=== PATIENT | female | born 1955 | race Caucasian/White ===

== ENCOUNTER 2019-12-28 10:01 | Emergency (ER) | payer OTHER ==
[~2019-12-28] VITALS: Ht 147.3 cm; Wt 149.5 kg
[2019-12-28] MEDS ORDERED: LISI10TA4 PO (10:09)
[2019-12-28] MEDS ORDERED: PRAV10TA3 PO (10:09)
[2019-12-28] MEDS ORDERED: HYDR12.55 PO (10:09)
[2019-12-28] MEDS ORDERED: DILT1CAP5 PO (10:09)
[2019-12-28 11:19] LABS: BASO % 0.5 % (0.0-1.0); EOS # 0.1 10^3/uL (0.0-0.5); EOS % 1.2 % (0.0-3.0); HEMATOCRIT 46.5 % (36.0-47.0); HEMOGLOBIN 15.5 g/dl (12.0-15.5); LYMPH # 1.7 10^3/uL (1.5-5.0); LYMPH % 22.3 % (24.0-44.0); MEAN CORPUSCULAR HEMOGLOBIN 30.4 pg (27.0-33.0); MEAN CORPUSCULAR HGB CONC 33.3 g/dl (32.0-36.5); MEAN CORPUSCULAR VOLUME 91.2 fl (80.0-96.0); MONO # 0.7 10^3/uL (0.0-0.8); MONO % 8.8 % (0.0-5.0); NEUTROPHILS # 5.1 10^3/uL (1.5-8.5); NEUTROPHILS % 66.8 % (36.0-66.0); PLATELET COUNT, AUTOMATED 284 10^3/uL (150-450); WHITE BLOOD COUNT 7.6 10^3/uL (4.0-10.0)
[2019-12-28 11:40] LABS: CALCIUM LEVEL 9.4 MG/DL (8.8-10.2); CREATININE FOR GFR 1.13 MG/DL (0.55-1.30); GLOMERULAR FILTRATION RATE 51.8 (>45); POTASSIUM SERUM 3.6 MEQ/L (3.5-5.1)
--- NOTE | 2019-12-28 12:15 | REP ---
PELVIC ULTRASOUND: Real-time sonographic evaluation of pelvis performed utilizing transabdominal and endovaginal technique. Bladder is empty. Transabdominal images are therefore extremely limited due to patient body habitus. Uterus measures 9.7 x 4.8 x 7.2 cm. Endometrial thickness is 17 mm, thickened for this postmenopausal patient. Complex material is seen in the cervical canal. The ovaries could not be visualized. There is no gross adnexal mass or free fluid. IMPRESSION: Thickened endometrium could indicate endometrial hyperplasia or neoplasm. Nodular material is seen in the cervix, which could represent blood clot. This measures 3.3 x 2.0 x 2.2 cm. Recommend endometrial sampling. Electronically Signed by Ben Estrada MD 12/28/2019 03:50 P
[2019-12-28] MEDS ORDERED: NS 1,000 ML IV ONE (12:30)
[2019-12-28] MEDS ORDERED: PROV10TA PO (13:25)
[2019-12-28 15:14] VITALS: BP 105/59
--- NOTE | 2020-01-01 20:03 | ED PDOC ---
Post-Departure Follow-Up dr castro faxed formal report of pelvivc us for fu Ingrid Newton MD January 01, 2020 20:03
[2020-01-18] MEDS ORDERED: MUCI600T31 PO (07:54)
[2020-01-18] MEDS ORDERED: FAMO1TAB25 PO (07:54)
== END 2019-12-28 15:25 | disposition home or self-care (01) ==
LOC: M ED 10:01
DX: N95.0 Postmenopausal bleeding (principal); R93.89 Abnormal findings on diagnostic imaging of other specified body structures; I10 Essential (primary) hypertension; Z87.42 Personal history of other diseases of the female genital tract; K21.9 Gastro-esophageal reflux disease without esophagitis; M54.9 Dorsalgia, unspecified; M17.0 Bilateral primary osteoarthritis of knee; Z88.0 Allergy status to penicillin; Z88.5 Allergy status to narcotic agent; Z91.040 Latex allergy status; Z79.899 Other long term (current) drug therapy

== ENCOUNTER → 2020-01-22 | Outpatient (CLI) | payer OTHER ==
[~2020-01-22] MED LIST: DILT1CAP5 PO; FAMO1TAB25 PO; HYDR12.55 PO; LISI10TA4 PO; MUCI600T31 PO; PRAV10TA3 PO; PROV10TA PO
== END | disposition home or self-care (01) ==
LOC: M LABSMTC 09:46
PROVIDERS: ATTEND Anesthesiology
DX: Z01.818 Encounter for other preprocedural examination (principal); Z11.59 Encounter for screening for other viral diseases
CPT/HCPCS: C9803; U0003

== ENCOUNTER 2020-01-25 11:36 | Day surgery (SDC) | payer OTHER ==
[~2020-01-25] VITALS: Ht 147.3 cm; Wt 150.9 kg
[2020-01-25 12:27] LABS: HEMATOCRIT 49.2 % (36.0-47.0); HEMOGLOBIN 15.9 g/dl (12.0-15.5); MEAN CORPUSCULAR HEMOGLOBIN 29.6 pg (27.0-33.0); MEAN CORPUSCULAR HGB CONC 32.3 g/dl (32.0-36.5); MEAN CORPUSCULAR VOLUME 91.6 fl (80.0-96.0); PLATELET COUNT, AUTOMATED 305 10^3/uL (150-450); RED BLOOD COUNT 5.37 10^6/uL (4.00-5.40)
[2020-01-25] MEDS ORDERED: LR 1,000 ML IV ONE (12:45)
[2020-01-25 12:46] LABS: CALCIUM LEVEL 9.1 MG/DL (8.8-10.2); CREATININE FOR GFR 1.09 MG/DL (0.55-1.30); POTASSIUM SERUM 3.9 MEQ/L (3.5-5.1)
[2020-01-25] MEDS ORDERED: MIDAZOLAM INJ 2MG/2ML VIAL (J2250 PER 1MG) As Ordered ONE (14:06)
[2020-01-25] MEDS ORDERED: fentaNYL 250 MCG/5 ML INJECTION (J3010) As Ordered ONE (14:06)
[2020-01-25] MEDS ORDERED: ONDANSETRON 4MG/2ML VIAL As Ordered ONE ×2 (14:07→19:10)
[2020-01-25] MEDS ORDERED: propofoL 200 MG/20 ML VIAL As Ordered ONE ×2 (14:07→16:32)
[2020-01-25] MEDS ORDERED: KETOROLAC 60MG 2ML VIAL As Ordered ONE ×2 (14:07→17:21)
[2020-01-25] MEDS ORDERED: dexameTHASONE 4 MG/ML 1ML VIAL (J1100 PER 1MG) As Ordered ONE (14:07)
[2020-01-25] MEDS ORDERED: LIDOCAINE 2% 100MG/5ML SDV (FOR ANES.) As Ordered ONE (14:07)
[2020-01-25] MEDS ORDERED: LIDOCAINE 1% MDV 20ML VIAL As Ordered ONE (16:54)
[2020-01-25] MEDS ORDERED: KETAMINE HCL 200 MG/20 ML VIAL As Ordered ONE (16:56)
[2020-01-25 19:55] VITALS: BP 135/64
[2020-01-25] MEDS ORDERED: LR 1,000 ML IV SCH (20:30)
[2020-01-25] MEDS ORDERED: fentaNYL 100 MCG/2 ML INJECTION (J3010) IV PRN (20:30)
[2020-01-25] MEDS ORDERED: ONDANSETRON 4MG/2ML VIAL IV PRN (20:30)
[2020-01-25] MEDS ORDERED: oxyCODONE 5MG TAB PO PRN (20:30)
[2020-01-25] MEDS ORDERED: HYDROMORPHONE HCL 0.5 MG/ 0.5 ML SYRINGE (J1170 PER 1) IV PRN (20:30)
--- NOTE | 2020-01-29 13:58 | RO ---
DATE OF OPERATION: 01/25/2020 PREOPERATIVE DIAGNOSIS: Postmenopausal bleeding. POSTOPERATIVE DIAGNOSIS: Postmenopausal bleeding. PROCEDURE: Hysteroscopy, dilation and curettage (D and C). SURGEON: King Pichardo MD BUILDING SURVEYOR: ANESTHESIA: Local with sedation. ESTIMATED BLOOD LOSS: 50 mL. FINDINGS: Thick lush endometrial tissue suspicious for possible carcinoma. OPERATIVE SUMMARY: The patient was taken to the operating room where IV sedation was given. She was prepped and draped in sterile fashion in the dorsal lithotomy position. A large Graves speculum was placed in the vagina. Even with the large Graves speculum visualization of the cervix was difficult due to the patient's body habitus. The anterior lip of the cervix was grasped with a tenaculum. The cervix was dilated with tapered dilators. A diagnostic hysteroscope using normal saline as the distention media was placed through the internal os. Visualization of the endometrial cavity revealed the findings noted above. Sharp curettage was performed. Specimen and endometrial curettings were sent to pathology. The patient had received 5 mL of 1% lidocaine into her cervix prior to the procedure. All instruments removed. Sponge and instrument counts were correct.
== END 2020-01-25 20:11 | disposition home or self-care (01) ==
LOC: M SDC 11:36
PROVIDERS: ATTEND Specialist
DX: N95.0 Postmenopausal bleeding (principal); I10 Essential (primary) hypertension; E78.00 Pure hypercholesterolemia, unspecified; K21.9 Gastro-esophageal reflux disease without esophagitis; G43.909 Migraine, unspecified, not intractable, without status migrainosus; Z79.899 Other long term (current) drug therapy; Z88.0 Allergy status to penicillin; Z88.5 Allergy status to narcotic agent; Z88.8 Allergy status to other drugs, medicaments and biological substances; Z91.040 Latex allergy status
CPT/HCPCS: 36415; 58558; 80048; 85027; 88305; J1100; J1885; J2250; J2405; J3010

== ENCOUNTER 2020-10-31 23:00 | Inpatient (IN) | payer OTHER ==
[~2020-10-31] VITALS: Ht 152.4 cm; Wt 149.5 kg
[~2020-10-31 23:00] MED LIST changes: +LISI10TA22 PO; -LISI10TA4 PO
[2020-11-01] VITALS (20 sets, daily range): BP systolic 84–129; BP diastolic 50–91
[2020-11-01 00:21] LABS: ALT/SGPT 21 U/L (12-78); BASO # 0.1 10^3/uL (0.0-0.2); BASO % 0.6 % (0.0-1.0); BILIRUBIN,DIRECT 0.4 MG/DL (0.0-0.2); BLOOD UREA NITROGEN 28 MG/DL (7-18); CALCIUM LEVEL 8.6 MG/DL (8.8-10.2); CARBON DIOXIDE LEVEL 39 MEQ/L (21-32); CHLORIDE LEVEL 96 MEQ/L (98-107); CK-MB VALUE MASS 6.6 NG/ML (<3.6); CPK CREATINE PHOSPHOKINASE 344 U/L (26-192); CREATININE FOR GFR 1.17 MG/DL (0.55-1.30); EOS % 0.2 % (0.0-3.0); GLOMERULAR FILTRATION RATE 49.6 (>45); GLUCOSE, FASTING 78 MG/DL (70-100); HEMATOCRIT 48.9 % (36.0-47.0); HEMOGLOBIN 14.5 g/dl (12.0-15.5); LYMPH # 0.7 10^3/uL (1.5-5.0); LYMPH % 6.2 % (24.0-44.0); MB/CK RELATIVE INDEX 1.92 (< OR =4); MEAN CORPUSCULAR HEMOGLOBIN 24.5 pg (27.0-33.0); MEAN CORPUSCULAR HGB CONC 29.7 g/dl (32.0-36.5); MEAN CORPUSCULAR VOLUME 82.7 fl (80.0-96.0); MONO # 0.9 10^3/uL (0.0-0.8); MONO % 7.2 % (2.0-8.0); NEUTROPHILS % 83.6 % (36.0-66.0); NT-PRO BNP 3065 PG/ML (<125); PLATELET COUNT, AUTOMATED 343 10^3/uL (150-450); RED BLOOD COUNT 5.91 10^6/uL (4.00-5.40); SODIUM LEVEL 137 MEQ/L (136-145); TOTAL PROTEIN 7.2 GM/DL (6.4-8.2); TROPONIN I < 0.02 NG/ML (< 0.10); WHITE BLOOD COUNT 11.9 10^3/uL (4.0-10.0)
[2020-11-01 00:26] LABS: RSV AMPLIFICATION NEGATIVE (NEGATIVE)
[2020-11-01] MEDS ORDERED: ISOVUE-370 76% 100ML VIAL As Ordered ONE (01:21)
[2020-11-01] MEDS ORDERED: FUROSEMIDE 40MG/4ML VIAL (J1940) IV ONE (02:30)
--- NOTE | 2020-11-01 02:32 | REPVR ---
PROCEDURE INFORMATION: Exam: XR Chest Exam date and time: 11/01/2020 1:21 AM Age: 65 years old Clinical indication: Dyspnea/cough TECHNIQUE: Imaging protocol: XR of the chest Views: 1 view. COMPARISON: No relevant prior studies available. FINDINGS: Lungs: There is left basilar atelectasis. No lung consolidation or pulmonary edema is noted. Pleural spaces: Unremarkable. No pleural effusion. No pneumothorax. Heart/Mediastinum: The heart is enlarged. Vasculature: There are atherosclerotic calcifications of the aortic arch. Bones/joints: Unremarkable. IMPRESSION: 1. Cardiomegaly. 2. No radiographic evidence for an acute cardiopulmonary process. Electronically signed by: Corey Harp On 11/01/2020 02:32:13 AM
--- NOTE | 2020-11-01 02:32 | REPVR ---
PROCEDURE INFORMATION: Exam: CT Angiography Chest With Contrast Exam date and time: 11/01/2020 1:17 AM Age: 65 years old Clinical indication: Shortness of breath, low o2 sat, positive dimer, morbid obesity TECHNIQUE: Imaging protocol: Computed tomographic angiography of the chest with contrast. 3D rendering (Not supervised by radiologist): MIP and/or 3D reconstructed images were created by the technologist. Radiation optimization: All CT scans at this facility use at least one of these dose optimization techniques: automated exposure control; mA and/or kV adjustment per patient size (includes targeted exams where dose is matched to clinical indication); or iterative reconstruction. Contrast material: ISO; Contrast volume: 100 ml; Contrast route: INTRAVENOUS (IV); COMPARISON: CR PORTABLE CHEST X-RAY 10/31/2020 11:48 PM FINDINGS: Limitations: Respiratory motion artifact degrades the image quality. Pulmonary arteries: There is no pulmonary embolism in the main, lobar, or segmental pulmonary arteries. Respiratory motion artifact limits the assessment of the subsegmental pulmonary arteries. Aorta: The thoracic aorta is intact and patent. There is no thoracic aortic aneurysm, pseudoaneurysm, penetrating atherosclerotic ulcer, intramural hematoma, or dissection. There are mild atherosclerotic calcifications. Great vessels off aortic arch: The brachiocephalic artery, imaged proximal portions of the common carotid arteries, imaged proximal portions of the vertebral arteries, and subclavian arteries are intact. No stenosis or occlusion of these vessels is noted. Trachea: Normal. Bronchial tree: Normal. Lungs: There is mild dependent atelectasis in both lower lobes. There is a 10 mm ill-defined opacity in the left upper lobe (image 22 of the axial series 502 and image 61 of the coronal series 503). Pleural spaces: Normal. No pneumothorax or pleural effusion. Heart: The heart is enlarged. No pericardial effusion is noted. There are coronary artery calcifications. Mediastinal space: No mediastinal mass, fluid collection, or pneumomediastinum. Lymph nodes: No enlarged lymph nodes. Diaphragm: Intact. Spleen: Normal. No splenomegaly is noted. Bones/joints: There is no fracture or dislocation. No suspicious osteolytic or osteoblastic lesion. There are endplate spurs in the thoracic spine. Soft tissues: Unremarkable. No soft tissue fluid collection. IMPRESSION: 1. No pulmonary embolism in the main, lobar, or segmental pulmonary arteries. Respiratory motion artifact limits the assessment of the subsegmental pulmonary arteries. 2. Cardiomegaly. 3. 10 mm ill-defined opacity in the left upper lobe. For both low risk and high risk patients, consider CT Chest at 3 months, PET/CT, or biopsy. (Reference: Melissa) REFERENCES: Melissa Horn, et al. Guidelines for Management of Incidental Pulmonary Nodules Detected on CT Images: From the Fleischner Society 2017. Radiology. 2017;284(1):228-243. Electronically signed by: Corey Harp On 11/01/2020 02:32:29 AM
[2020-11-01] MEDS ORDERED: MEDR10TA PO (03:16)
[2020-11-01] MEDS ORDERED: med rec comment (03:29)
[2020-11-01] MEDS ORDERED: methylPREDNISolone 125MG 2ML VIAL IV STA (03:48)
--- NOTE | 2020-11-01 03:51 | HPEPDOC ---
[facility] Medical History & Physical Date of Admission Nov 01, 2020 Date of Service: Nov 01, 2020 Primary Care Physician: VERITO SARAVIA MD Attending Physician: FÁTIMA BROWN MD History and Physical TIME OF SERVICE: 345am CHIEF COMPLAINT: facial numbness HISTORY OF PRESENT ILLNESS: The history was obtained from the patients son; the pt kept on falling asleep. This 65 yr old F has been house bound most of the winter; according to her son she tends to avoid hospitals and seeing doctors. She doesnt have a sleep machine but for years she has been lethargic and snoring when she falls asleep. Over the last 2 days she has been sleeping more. Yesterday while siting on the toilet she had facial numbness and had difficulties standing up; when EMS arrived she had been sitting on the toilet for 6H and while they were transporting her her O2 sats dropped to 85% so she was put on non-rebreather. She received Lasix for presumed fluid overload in the ER. REVIEW OF SYSTEMS: 12-point review of systems negative except as listed in HPI PAST MEDICAL/ SURGICAL HISTORY: Essential HTN COPD Migraines Tubal ligation Class 3 obesity SOCIAL HISTORY: former smoker FAMILY HISTORY: Parkinsons, aneurysms, DM ALLERGIES: Please see below. HOME MEDICATIONS: Please see below. PHYSICAL EXAMINATION: Vital Signs Date Time Temp Pulse Resp B/P (MAP) Pulse Ox O2 Delivery O2 Flow Rate FiO2 10/31/20 23:12 98.4 123 22 134/73 (93) 97 Nasal Cannula 4.0 11/01/20 04:06 50 GENERAL APPEARANCE: lethargic/ intermittently arousable for a few seconds HEENT: proptosis CARDIOVASCULAR: RRR/NMRG / + BLE edema LUNGS: snoring while she is sleeping and having apneic episodes / despite 4L supplemental O2 her O2 sats range from 79 to 88% / using accessory muscle /breath sounds are deminished ABDOMEN: obese / soft MUSCULOSKELETAL: LIBERTAD x1 INTEGUMENT: lips cyanotic NEUROLOGICAL: having episodes of what appears to be myoclonic jerks PSYCHIATRIC: able to tell me she is in the hospital the falls asleep LABORATORY DATA: 10/31/20 23:41 IMAGING: Chest xray IMPRESSION: 1. Cardiomegaly. 2. No radiographic evidence for an acute cardiopulmonary process. CTA chest IMPRESSION: 1. No pulmonary embolism in the main, lobar, or segmental pulmonary arteries. Respiratory motion artifact limits the assessment of the subsegmental pulmonary arteries. 2. Cardiomegaly. 3. 10 mm ill-defined opacity in the left upper lobe. For both low risk and high risk patients, consider CT Chest at 3 months, PET/CT, or biopsy. (Reference: Melissa) REFERENCES: Melissa Horn, et al. Guidelines for Management of Incidental Pulmonary Nodules Detected on CT Images: From the Fleischner Society 2017. Radiology. 2017;284(1):228-243. MICROBIOLOGY: respiratory panel neg ASSESSMENT: is a 65 yr old w a hx of migraines, COPD, presumed undiagnosed MATTIE/OHS, and obesity who was brought to the ER for evaluation of AMS & facial paresthesias; she will be admitted for acute hypercapneic/hypoxemic respiratory failure, encephalopathy and fluid overload. PLAN: 1 Acute BIPAP dependent hypercapneic/hypoxemic respiratory failure Likey has Pulm HTN & undiagnosed MATTIE/OHS Plan: admit to ICU /f/u add on VBG, start BIPAP and f/u repeat VBG 1H later / c/w IV Lasix f/u Echo / strict NPO while on BIPAP / f/u Echo 2 Acute COPD Plan: continuous pulse oximetry / aspiration precautions / DuoNeb Q6H, Albuterol Q2HP, solmedrol + PPI 3 Metabolic Encephalopathy likely 2/2 hypercarbia Plan: BIPAP / day time team may consider MRI if AMS hasnt resolved when hypercarbia has resolved [address] head neg Plan; day time team may consider completing the stroke work up 5 ALLIE opacity Plan: bc it is 1cm in size she will need a biopsy 6 HTN Plan: hold PO Diltiazem & Lisinopril 7 Obesity Complicates care DVT px lovenox Dispo: home after at least 2 midnights stay Home Medications Scheduled Diltiazem Hcl (Diltiazem 24Hr ER) 240 Mg Cap.sa.24h, 240 MG PO DAILY Famotidine (Famotidine) 10 Mg Tablet, 10 MG PO DAILY Guaifenesin (Mucinex) 600 Mg Tab.er.12h, 600 MG PO PRN Hydrochlorothiazide (Hydrochlorothiazide) 12.5 Mg Tablet, 12.5 MG PO DAILY Lisinopril (Lisinopril) 10 Mg Tablet, 10 MG PO DAILY Medroxyprogesterone Acetate (Medroxyprogesterone Acetate) 10 Mg Tablet, 10 MG PO DAILY Pravastatin Sodium (Pravastatin Sodium) 10 Mg Tablet, 10 MG PO DAILY Miscellaneous Medications [med rec comment] unable to verify with patient, but states she hasnt taken any meds in days Allergies Coded Allergies: latex (Verified Allergy, Intermediate, rash, 01/18/20) Penicillins (Verified Adverse Reaction, Mild, GI UPSET, 01/18/20) clavulanic acid (Verified Adverse Reaction, Mild, GI UPSET, 01/18/20) codeine (Verified Adverse Reaction, Mild, GI UPSET, 01/18/20) A-FIB/CHADSVASC A-FIB History Current/History of A-Fib/PAF?: No Current PO Anticoag Therapy: No FÁTIMA BROWN MD Nov 01, 2020 03:51
[2020-11-01 03:54] LABS: VENOUS BASE EXCESS 7.1 (-2.0-2.0); VENOUS HCO3 37.9 MEQ/L (23.0-27.0); VENOUS O2 SATURATION 67.8 % (60.0-80.0); VENOUS PARTIAL PRESSURE CO2 85.9 mmHg (38.0-50.0); VENOUS PARTIAL PRESSURE O2 42.7 mmHg (30.0-50.0); VENOUS PH 7.262 UNITS (7.330-7.430); VENOUS STANDARD HCO3 30.1 MEQ/L; VENOUS TOTAL CO2 40.5 MEQ/L (24.0-28.0)
[2020-11-01] MEDS ORDERED: ALBUTEROL SULFATE 2.5 MG/0.5 ML INH NEB SOLN NEB SCH (04:00)
[2020-11-01] MEDS ORDERED: ALBUTEROL SULFATE 2.5 MG/0.5 ML INH NEB SOLN NEB PRN (04:10)
[2020-11-01 05:22] LABS: VENOUS BASE EXCESS 7.1 (-2.0-2.0); VENOUS HCO3 37.4 MEQ/L (23.0-27.0); VENOUS PARTIAL PRESSURE CO2 81.9 mmHg (38.0-50.0); VENOUS PARTIAL PRESSURE O2 156.9 mmHg (30.0-50.0); VENOUS PH 7.277 UNITS (7.330-7.430); VENOUS TOTAL CO2 39.9 MEQ/L (24.0-28.0)
[2020-11-01 05:27] LABS: MEAN CORPUSCULAR HEMOGLOBIN 24.8 pg (27.0-33.0); MEAN CORPUSCULAR HGB CONC 29.2 g/dl (32.0-36.5); MEAN CORPUSCULAR VOLUME 85.1 fl (80.0-96.0); PLATELET COUNT, AUTOMATED 342 10^3/uL (150-450); RED BLOOD COUNT 5.64 10^6/uL (4.00-5.40); WHITE BLOOD COUNT 12.7 10^3/uL (4.0-10.0)
[2020-11-01 06:01] LABS: ABG BASE EXCESS 8.5 (-2.0-2.0); ABG HCO3 39.8 MEQ/L (22.0-26.0); ABG O2 SATURATION 95.9 % (95.0-99.0); ABG PARTIAL PRESSURE O2 94.8 mmHg (75.0-100.0); ABG STANDARD HCO3 32.3 MEQ/L (22.0-26.0); ABG TOTAL CO2 42.7 MEQ/L (23.0-31.0)
[2020-11-01 06:02] LABS: BLOOD UREA NITROGEN 25 MG/DL (7-18); CALCIUM LEVEL 8.4 MG/DL (8.8-10.2); CARBON DIOXIDE LEVEL 38 MEQ/L (21-32); CHLORIDE LEVEL 96 MEQ/L (98-107); CREATININE FOR GFR 1.16 MG/DL (0.55-1.30); GLOMERULAR FILTRATION RATE 50.1 (>45); GLUCOSE, FASTING 104 MG/DL (70-100); POTASSIUM SERUM 4.7 MEQ/L (3.5-5.1); SODIUM LEVEL 136 MEQ/L (136-145); TROPONIN I < 0.02 NG/ML (< 0.10)
[2020-11-01 06:02] LABS: ABG pH (ARTERIAL) 7.245 UNITS (7.350-7.450)
[2020-11-01] MEDS ORDERED: MIDAZOLAM INJ 2MG/2ML VIAL (J2250 PER 1MG) IV ONE ×2 (06:30→07:12)
[2020-11-01] MEDS ORDERED: PHENYLEPHRINE 0.5% NASAL SPRAY 15 ML As Ordered ONE (06:31)
[2020-11-01] MEDS ORDERED: PHENYLEPHRINE 10MG/ML 1ML VIAL (J2370 PER 1) IV STA (06:42)
[2020-11-01] MEDS ORDERED: MIDAZOLAM INJ 2MG/2ML VIAL (J2250 PER 1MG) As Ordered ONE ×3 (06:46→07:09)
[2020-11-01] MEDS ORDERED: REFRIGERATOR IV KEYS XX PRN (07:05)
[2020-11-01] MEDS: IPRATROPIUM 0.5MG/ALBUTEROL 2.5MG INH SOL UD 3ML (DUONEB) NEB SCH ×4 (07:24→19:37)
[2020-11-01] MEDS: MIDAZOLAM INJ 2MG/2ML VIAL (J2250 PER 1MG) IV PRN ×11 (07:30→22:51)
[2020-11-01 07:39] LABS: ABG BASE EXCESS 6.2 (-2.0-2.0); ABG HCO3 35.4 MEQ/L (22.0-26.0); ABG O2 SATURATION 96.1 % (95.0-99.0); ABG PARTIAL PRESSURE O2 87.6 mmHg (75.0-100.0); ABG STANDARD HCO3 30.1 MEQ/L (22.0-26.0); ABG TOTAL CO2 37.6 MEQ/L (23.0-31.0); ABG pH (ARTERIAL) 7.305 UNITS (7.350-7.450)
[2020-11-01 07:41] LABS: ABG PARTIAL PRESSURE CO2 72.7 mmHg (35.0-45.0)
[2020-11-01] MEDS: MIDAZOLAM HCL 100 MG in D5W 80 ML IV SCH ×2 (07:56→23:10)
[2020-11-01] MEDS ORDERED: FUROSEMIDE 40MG/4ML VIAL (J1940) IV SCH (08:00)
[2020-11-01] MEDS ORDERED: GLUCOSE 4GM CHEW TABLET PO PRN (08:00)
[2020-11-01] MEDS ORDERED: IPRATROPIUM 0.5MG/ALBUTEROL 2.5MG INH SOL UD 3ML (DUONEB) NEB SCH (08:00)
[2020-11-01] MEDS ORDERED: GLUCAGON INJ 1MG VIAL SC PRN (08:00)
[2020-11-01 08:08] LABS: FREE THYROXINE INDEX 3.3 % (1.3-4.8); T UPTAKE 38 % (30-39); THYROXINE (T4) 8.8 UG/DL (4.5-12.0)
--- NOTE | 2020-11-01 08:24 | REP ---
INDICATION: ETT, CHF. COMPARISON: Comparison portable chest x-ray November 01, 2020. TECHNIQUE: Portable upright AP chest radiograph. FINDINGS: Endotracheal tube is seen in good position a cm and half above the alma rosa. A nasogastric tube enters the left upper quadrant. Monitoring electrodes are seen. Moderate cardiac enlargement is observed. Vascular and interstitial congestion is again seen. Today's views exposed at a somewhat lesser level of inspiration. Increased markings in the left base and left perihilar region are more prominent and left hemidiaphragm is not visible today.. IMPRESSION: Endotracheal and nasogastric tubes in place. Lower level of inspiration. Increased density left base. Vascular and interstitial congestion.. <Electronically signed by Edward Chatterjee > 11/01/20 [id number]
[2020-11-01] MEDS: CHLORHEXIDINE GLUCONATE 0.12 % 15ML UDC (PERIDEX ORAL RINSE) MT SCH ×2 (09:25→20:31)
[2020-11-01] MEDS: ENOXAPARIN 40MG/0.4ML SYRINGE (J1650 PER 10MG) SC SCH (09:26)
[2020-11-01] MEDS: PANTOPRAZOLE 40MG VIAL (C9113 PER 1) IV SCH (09:26)
[2020-11-01] MEDS: FUROSEMIDE 100MG/10ML VIAL (J1940) IV SCH ×2 (09:26→17:38)
--- NOTE | 2020-11-01 10:59 | RO ---
OPERATIVE NOTE DATE OF OPERATION: 11/01/2020 PREOPERATIVE DIAGNOSIS: Hypoxia. POSTOPERATIVE DIAGNOSIS: Hypoxia. PROCEDURE: Endotracheal tube intubation. SURGEON: Rudi Bosch DO, [facility] SE[facility] TECHNICAL OFFICER: ANESTHESIA: DESCRIPTION OF PROCEDURE: The patient was seen in the intensive care unit with unstable respiratory effort, hypoxemic. Endotracheal tube intubation to secure airway was felt emergently necessary. #8 endotracheal tube was prepared. Direct laryngoscopy was performed using GlideScope. The vocal cords were visualized. The endotracheal tube was placed through vocal cords and into the trachea to distance of 23 cm. The balloon was inflated. Good bilateral breath sounds were appreciated. CO2 was noted on the monitor and the tube was secured in place. Postprocedure chest x-ray confirmed adequate placement. There were no complications.
--- NOTE | 2020-11-01 11:54 | CCN ---
CRITICAL CARE NOTE DATE: 11/01/2020 I was called to see this 65-year-old female in respiratory distress. Admitted earlier through the emergency department, she was found to be in hypercarbic respiratory failure. Noninvasive ventilation was attempted, but her clinical status declined. Arterial blood gas recently performed showed worsening. On my arrival to the intensive care unit the patient is obtunded, withdraws to pain, has a [place] Coma Scale of 6. There is no sedation or pain medication administered. Her respiratory effort was inconsistent, and apneic periods were noted. A #8 endotracheal tube was placed after intravenous (IV) Versed was administered and mechanical ventilation initiated. On review of her electronic medical record, the patient has a prior history of hypertension, obstructive airways disease, migraine, cephalgia, hypercholesterolemia, and gastroesophageal reflux. At bedside her temperature is 97.6, pulse rate 100, respirations 18/18 delivered, blood pressure 120/60. HEENT: Her pupils are 3 mm. There is a question of exophthalmos. Oral mucosa is pink with copious secretions. There are dentures in the upper mandible. Neck is quite patel. Jugular veins are difficult to appreciate. The carotid upstroke is palpable. Heart sounds are regular but distant. Breath sounds markedly diminished with wet rales bilaterally. Abdomen is morbidly obese with edema of the abdominal wall. Bowel sounds are appreciated in the right lower quadrant. Extremities are grossly edematous with pitting to 5-6 mm bilaterally. Diagnostic studies assessed included her chest x-ray, which showed cardiomegaly and interstitial edema. CT scan of the chest showing cardiomegaly and prominence of the interstitial markings. Formal reports are pending. Diagnostic laboratory studies assessed. Her white cell count was 11.9, now 12.7, hemoglobin 14, hematocrit 48, platelet count 342,000. Differential white cell count shows 83.6% neutrophils. Chemistries: Sodium 136, potassium 4.7, chloride 96, CO2 of 38, BUN 25, creatinine 1.16, glucose 104. Bilirubin is 1. AST 24, ALT 21, alkaline phosphatase 75. CPK is 344. Troponin less than 0.02. BNP 3065. Albumin is 3. Venous blood gases obtained in the emergency department showed a pH of 7.26, pCO2 of 85, pO2 of 42. Subsequent venous gas showed a pH of 7.27, pCO2 of 81, pO2 of 156. Arterial blood gas just obtained show a pH of 7.24, pCO2 of 94, pO2 of 94. This on noninvasive ventilation. Her D-dimer is 1730. Urinalysis showed a specific gravity of 1.02, 1+ protein, some blood, 4 white cells, 1+ bacteria. Serology was negative for COVID. The primary problem requiring critical attention acute respiratory failure. We will initiate mechanical ventilation and recheck arterial blood gases. Having accomplished this, the repeat arterial blood gases now show a pH of 7.30, pCO2 of 72, pO2 of 87, this on a pressure control mode of ventilation. Peak pressure of 16 over PEEP of 5, FiO2 of 0.5 and rate of 18. Pulmonary edema/anasarca. We will initiate diuresis with Lasix 80 mg twice a day. An echocardiogram has been ordered or the end is pending. We will check and electrocardiogram. I suspect hypertensive heart disease. Obesity hypoventilation syndrome. The patient's elevated bicarbonate on admission suggests a chronically elevate pCO2. In light of her exophthalmos and patel neck, we will obtain thyroid profile to rule out concomitant hypotension. Obstructive sleep apnea syndrome. Patient has a shallow airway, patel neck, obesity, and hypertension. This workup will be pursued after the acute illness. Deep venous thrombosis (DVT) prophylaxis is being addressed with Lovenox. Ulcer prophylaxis is being addressed with Protonix. Glycemic control will be assessed with fingerstick blood sugars and coverage if necessary. I have discussed the case with the hospitalist service who had admitted and are managing her general medical care. I have discussed the case with the intensive care unit (ICU) team, and goals of care for the day have been outlined. There was 128 minutes spent in the provision of bedside critical care and coordination, exclusive of any time spent for the performance of procedures.
[2020-11-01] MEDS: HumaLOG INSULIN (NovoLOG) PER UNIT SC SCH ×4 (12:00→23:21)
[2020-11-01] MEDS ORDERED: methylPREDNISolone 125MG 2ML VIAL IV SCH (12:00)
[2020-11-01] MEDS ORDERED: propofoL 200 MG/20 ML VIAL ONE (13:57)
[2020-11-01 17:06] LABS: ABG BASE EXCESS 15.1 (-2.0-2.0); ABG HCO3 37.9 MEQ/L (22.0-26.0); ABG O2 SATURATION 94.3 % (95.0-99.0); ABG PARTIAL PRESSURE CO2 39.2 mmHg (35.0-45.0); ABG PARTIAL PRESSURE O2 61.2 mmHg (75.0-100.0); ABG STANDARD HCO3 38.9 MEQ/L (22.0-26.0); ABG TOTAL CO2 39.1 MEQ/L (23.0-31.0); ABG pH (ARTERIAL) 7.603 UNITS (7.350-7.450)
[2020-11-01] MEDS: dexmedeTOMidine 200 MCG in IV 1 EA IV SCH ×4 (17:11→22:22)
--- NOTE | 2020-11-01 17:46 | ECGEPIP ---
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
[2020-11-01 18:43] LABS: ALBUMIN 2.4 GM/DL (3.2-5.2); CALCIUM LEVEL 7.9 MG/DL (8.8-10.2); CREATININE FOR GFR 1.23 MG/DL (0.55-1.30); GLOMERULAR FILTRATION RATE 46.8 (>45)
--- NOTE | 2020-11-01 20:22 | IPNPDOC ---
Subjective Date Seen The patient was seen on 11/01/20. Subjective Chief Complaint/HPI Mrs. Freitas is a 65 year old female with class 3 obesity and COPD who presents with acute hypoxic hypercapnic respiratory failure. On admission, tried noninvasive positive pressor ventilation, but continued to worsen. Patient had to be intubated. I saw the patient in the morning after she was intubated and sedated and discussed the case with pulmonary/critical care. Objective Physical Examination General Exam: Negative: Alert (Sedated) Chest Exam: Positive: Clear to auscultation, Diminished Heart Exam: Positive: Rate Normal, Regular Rhythm Abdomen Exam: Positive: BS Hypoactive, Soft, Other (obese) Extremity Exam: Positive: Edema (bilateral pitting edema) Neuro Exam: Positive: Other (Sedated and intubated) Psych Exam: Negative: Mental status NL (sedated and intubated) Assessment /Plan Assessment Mrs. Freitas is a 65 year old female with class 3 obesity and COPD who presents with acute hypoxic hypercapnic respiratory failure. Patient failed NIPPV and was intubated morning of 11/01/2020. Her respiratory failure is most likely secondary to a combination of obesity hypoventilation syndrome and CHF/pulmonary hypertension. Patient has been intubated and being diuresed. Pulmonary/critical care following, recommendations appreciated. Plan/VTE VTE Prophylaxis Ordered?: Yes Plan 1. Acute hypoxic hypercapnic respiratory failure -May be due to a combination of obesity hypoventilation syndrome and CHF/pulm hypertension -Pending echocardiogram results -Intubated and sedated. Being diuresed -Pulmonary/critical care following, recommendations appreciated 2. Metabolic encephalopathy -Secondary to hypercarbia -Intubated and sedated 3. Facial paresthesias -CT head negative -Patient intubated and sedated. Will reassess after extubated 4. Left upper lobe opacity -May need a biopsy when patient is more stable 5. Hypertension -Diltiazem and lisinopril on hold 6. Obesity -BMI 71.3 -Complicating care and contributing to patient's respiratory failure 7. DVT ppx -Lovenox Disposition: Continues to be intubated and sedated in the ICU VS, I&O, 24H, Fishbone Vital Signs/I&O Vital Signs Date Time Temp Pulse Resp B/P (MAP) Pulse Ox O2 Delivery O2 Flow Rate FiO2 11/01/20 19:37 107 15 90 40 11/01/20 18:00 96/52 (67) 11/01/20 16:00 99.3 Ventilator 11/01/20 02:18 4.0 I&O- Last 24 Hours up to 6 AM 11/01/20 05:59 Output Total 400 ml Balance -400 ml Laboratory Data 24H LABS Laboratory Tests 2 10/31/20 23:41: Immature Granulocyte % (Auto) 2.2, Neutrophils (%) (Auto) 83.6H, Lymphocytes (%) (Auto) 6.2L, Monocytes (%) (Auto) 7.2, Eosinophils (%) (Auto) 0.2, Basophils (%) (Auto) 0.6, Neutrophils # (Auto) 10.0H, Lymphocytes # (Auto) 0.7L, Monocytes # (Auto) 0.9H, Eosinophils # (Auto) 0.0, Basophils # (Auto) 0.1, Nucleated Red Blood Cells % (auto) 1.8H, D-Dimer, Quantitative 1730.30H, Anion Gap 2L, Glomerular Filtration Rate 49.6, Calcium Level 8.6L, Total Bilirubin 1.0, Direct Bilirubin 0.4H, Aspartate Amino Transf (AST/SGOT) 24, Alanine Aminotransferase (ALT/SGPT) 21, Alkaline Phosphatase 75, Total Creatine Kinase 344H, Creatine Kinase MB 6.6H, Creatine Kinase MB Relative Index 1.92, Troponin I < 0.02, PS-Jfh-L-Type Natriuretic Peptide 3065H, Total Protein 7.2, Albumin 3.0L, Albumin/Globulin Ratio 0.7L 10/31/20 23:42: Coronavirus (COVID-19)(PCR) NEGATIVE, Influenza Type A (RT-PCR) NEGATIVE, Influenza Type B (RT-PCR) NEGATIVE, Respiratory Syncytial Virus (PCR) NEGATIVE 11/01/20 03:50: Blood Gas Bicarbonate Standard 30.1, Venous Blood pH 7.262L, Venous Blood Partial Pressure CO2 85.9H, Venous Blood Partial Pressure O2 42.7, Venous Blood Total Carbon Dioxide 40.5H, Venous Blood HCO3 37.9H, Venous Blood Oxygen Saturation 67.8, Venous Blood Base Excess 7.1H 11/01/20 05:17: Nucleated Red Blood Cells % (auto) 1.0H, Anion Gap 2L, Glomerular Filtration Rate 50.1, Calcium Level 8.4L, Troponin I < 0.02, Blood Gas Bicarbonate Standard 31.0, Venous Blood pH 7.277L, Venous Blood Partial Pressure CO2 81.9H, Venous Blood Partial Pressure O2 156.9H, Venous Blood Total Carbon Dioxide 39.9H, Venous Blood HCO3 37.4H, Venous Blood Oxygen Saturation 99.0H, Venous Blood Base Excess 7.1H, Thyroid Stimulating Hormone (TSH) 1.860, Free Thyroxine Index 3.3, Thyroxine (T4) 8.8, Triiodothyronine (T3) Uptake 38 11/01/20 05:42: Blood Gas Bicarbonate Standard 32.3H, Arterial Blood pH 7.245*L, Arterial Blood Partial Pressure CO2 94.0*H, Arterial Blood Partial Pressure O2 94.8, Arterial Blood Total CO2 42.7H, Arterial Blood HCO3 39.8H, Arterial Blood Base Excess 8.5H, Arterial Blood Oxygen Saturation 95.9 11/01/20 07:22: Blood Gas Bicarbonate Standard 30.1H, Arterial Blood pH 7.305L, Arterial Blood Partial Pressure CO2 72.7*H, Arterial Blood Partial Pressure O2 87.6, Arterial Blood Total CO2 37.6H, Arterial Blood HCO3 35.4H, Arterial Blood Base Excess 6.2H, Arterial Blood Oxygen Saturation 96.1 11/01/20 12:56: Bedside Glucose (Misc Panel) 113 11/01/20 16:52: Blood Gas Bicarbonate Standard 38.9H, Arterial Blood pH 7.603*H, Arterial Blood Partial Pressure CO2 39.2, Arterial Blood Partial Pressure O2 61.2L, Arterial Blood Total CO2 39.1H, Arterial Blood HCO3 37.9H, Arterial Blood Base Excess 15.1H, Arterial Blood Oxygen Saturation 94.3L 11/01/20 17:33: Bedside Glucose (Misc Panel) 119H 11/01/20 18:06: Anion Gap 7L, Glomerular Filtration Rate 46.8, Calcium Level 7.9L, Phosphorus Level 4.0, Albumin 2.4L CBC/BMP Laboratory Tests 10/31/20 23:41 11/01/20 05:17 11/01/20 18:06 Microbiology Microbiology 11/01/20 Gram Stain, Received Pending 11/01/20 Sputum Culture, Received Pending TEZ MOHR 27, 2021 20:22
[2020-11-01] MEDS ORDERED: ACETAMINOPHEN 325 MG/10.15 ML UDC GT PRN (20:50)
--- NOTE | 2020-11-01 21:03 | IPNPDOC ---
Text Note Date of Service The patient was seen on 11/01/20. NOTE Informed by KATHLEEN Zamora the pt spiked a fever of 100.8. The pt is tachycardic as well and her WBC # increased this AM. #SIRS vs Sepsis Possibly due to CAP as repeat xray this morning showed increase in size of left base density Plan: f/u blood cx / sputum cx / lactic acid / start IV ceftriaxone and azithromycin for CAP / per 2019 ATS/ IDSA guidelines on the diagnosis and treat ment of CAP will NOT check procalcitonin VS,Bossmane, I+O VS, Fishbone, I+O Laboratory Tests 10/31/20 23:41 11/01/20 05:17 11/01/20 18:06 Vital Signs Date Time Temp Pulse Resp B/P (MAP) Pulse Ox O2 Delivery O2 Flow Rate FiO2 11/01/20 19:37 107 15 90 40 11/01/20 18:00 96/52 (67) 11/01/20 16:00 99.3 Ventilator 11/01/20 02:18 4.0 I&O- Last 24 Hours up to 6 AM 11/01/20 05:59 Output Total 400 ml Balance -400 ml FÁTIMA BROWN MD Nov 01, 2020 21:03
[2020-11-01] MEDS: cefTRIAXone SOD 1 GM in D5W MINI-BAG PLUS 50 ML IV SCH (21:54)
[2020-11-01] MEDS: AZITHROMYCIN INJ 500 MG, VIAL MATE ADAPTER 1 EACH in NS 250 ML IV SCH (22:43)
[2020-11-02] VITALS (10 sets, daily range): BP systolic 93–116; BP diastolic 52–59
[2020-11-02] MEDS: dexmedeTOMidine 200 MCG in IV 1 EA IV SCH ×6 (00:19→10:15)
[2020-11-02] MEDS: MIDAZOLAM INJ 2MG/2ML VIAL (J2250 PER 1MG) IV PRN ×3 (02:21→19:15)
[2020-11-02 02:40] LABS: HIV SCREEN CENTAUR SOURCE NEGATIVE (NEGATIVE)
[2020-11-02 04:55] LABS: BASO % 0.1 % (0.0-1.0); HEMATOCRIT 41.8 % (36.0-47.0); HEMOGLOBIN 12.9 g/dl (12.0-15.5); LYMPH # 0.4 10^3/uL (1.5-5.0); LYMPH % 5.1 % (24.0-44.0); MEAN CORPUSCULAR HEMOGLOBIN 24.9 pg (27.0-33.0); MEAN CORPUSCULAR HGB CONC 30.9 g/dl (32.0-36.5); MEAN CORPUSCULAR VOLUME 80.5 fl (80.0-96.0); MONO # 0.7 10^3/uL (0.0-0.8); NEUTROPHILS # 6.8 10^3/uL (1.5-8.5); NEUTROPHILS % 85.2 % (36.0-66.0); PLATELET COUNT, AUTOMATED 277 10^3/uL (150-450); RED BLOOD COUNT 5.19 10^6/uL (4.00-5.40)
[2020-11-02 05:27] LABS: ALBUMIN 2.3 GM/DL (3.2-5.2); BILIRUBIN,TOTAL 0.6 MG/DL (0.2-1.0); CALCIUM LEVEL 7.8 MG/DL (8.8-10.2); CREATININE FOR GFR 1.38 MG/DL (0.55-1.30); PHOSPHORUS LEVEL 5.2 MG/DL (2.5-4.9); POTASSIUM SERUM 4.2 MEQ/L (3.5-5.1); TOTAL PROTEIN 5.9 GM/DL (6.4-8.2)
[2020-11-02 05:33] LABS: ABG BASE EXCESS 8.6 (-2.0-2.0); ABG HCO3 31.8 MEQ/L (22.0-26.0); ABG O2 SATURATION 93.8 % (95.0-99.0); ABG PARTIAL PRESSURE CO2 38.9 mmHg (35.0-45.0); ABG PARTIAL PRESSURE O2 66.6 mmHg (75.0-100.0); ABG STANDARD HCO3 32.3 MEQ/L (22.0-26.0); ABG pH (ARTERIAL) 7.531 UNITS (7.350-7.450)
[2020-11-02] MEDS: HumaLOG INSULIN (NovoLOG) PER UNIT SC SCH ×3 (05:34→17:31)
[2020-11-02] MEDS: IPRATROPIUM 0.5MG/ALBUTEROL 2.5MG INH SOL UD 3ML (DUONEB) NEB SCH ×4 (07:24→20:41)
--- NOTE | 2020-11-02 07:32 | ECGEPIP ---
[facility] - ED Test Date: 2020-10-31 Pat Name: KENY LLAMAS Department: Room: [place] [address] Gender: Female Stroke Coordinator: CHRISTINA : 1955 Requested By: El Hanley Order Number: [id number] Reading MD: Olga Wadsworth Measurements Intervals [place] Rate: 108 P: 56 [place]: 156 QRS: 0 QRSD: 68 T: 53 QT: 312 QTc: 418 Interpretive Statements Sinus tachycardia with premature supraventricular complexes and premature ventricular complexes or fusion complexes Low voltage QRS Cannot rule out Anterior infarct , age undetermined No prior Electronically Signed on 11-02-2020 7:32:07 EDT by Olga Wadsworth
[2020-11-02] MEDS: ENOXAPARIN 40MG/0.4ML SYRINGE (J1650 PER 10MG) SC SCH (08:21)
[2020-11-02] MEDS: CHLORHEXIDINE GLUCONATE 0.12 % 15ML UDC (PERIDEX ORAL RINSE) MT SCH ×2 (08:21→20:50)
[2020-11-02] MEDS: FUROSEMIDE 100MG/10ML VIAL (J1940) IV SCH ×2 (08:22→17:32)
[2020-11-02] MEDS: PANTOPRAZOLE 40MG VIAL (C9113 PER 1) IV SCH (08:22)
--- NOTE | 2020-11-02 08:45 | REP ---
INDICATION: ett. COMPARISON: Comparison chest x-ray November 01, 2020. TECHNIQUE: Portable upright AP chest radiograph. FINDINGS: Endotracheal tube is seen in position at the level of proximal clavicles. NG tube enters the left upper quadrant of the abdomen. Monitoring electrodes are seen. The lungs are exposed at a relatively low level of inspiration similar to yesterday's portable chest x-ray. The cardiac silhouette is enlarged. Pulmonary vasculature and interstitial markings remain somewhat congested although there is slight improvement from previous study. Left hemidiaphragm is obscured question pleural effusion and/or left lower lobe opacification.. IMPRESSION: Low level of inspiration. NG tube and nasogastric tubes in place. Increased density left base.. <Electronically signed by Edward Chatterjee > 11/02/20 [id number]
--- NOTE | 2020-11-02 13:12 | CCN ---
CRITICAL CARE NOTE DATE: 11/02/2020 SUBJECTIVE: The patient is seen in the intensive care unit intubated, mechanically ventilated, critically ill. This is hospital day #2, ICU day #2. She is diuresing well with Lasix. Much gagging prompted the addition of Precedex in addition to her Versed rip, and this appears to have palliated the gagging. OBJECTIVE: VITAL SIGNS: At bedside, her temperature is 97, T-max for the past 24 hours 100.8, pulse rate 83, respirations 14, blood pressure 116/59, oxygen saturation 93% on 40% FiO2. INTAKE AND OUTPUT: For the past 24 hours, 254 and 4952 out; since midnight, 437 in and 285 out. GENERAL APPEARANCE: At bedside, she is ill-appearing. HEENT: Her oral mucosa is pink. Endotracheal tube and orogastric tubes are in good position. The orogastric tube is draining bilious material. NECK: Quite patel. I am unable to appreciate jugular veins. HEART: Sounds are regular and somewhat distant, but no ectopy. LUNGS: Breath sounds are coarse and diminished, but less rales are appreciated today. ABDOMEN: Soft and obese with abdominal of the abdominal wall. EXTREMITIES: Grossly edematous. Pulses are palpable x4. DIAGNOSTIC STUDIES: Her white cell count is 8.0 down from 12.7, hemoglobin of 12.9, hematocrit 40.8, platelet count 277,000. Differential white cell count shows 85% neutrophils, 9 monocytes. Electrolytes are sodium 139, potassium 4.2, chloride 93, CO2 is up slightly at 41. BUN is 31, creatinine is up slightly at 1.38, glucose 150; range of 113 to 150. The serum calcium is 7.8. Phosphorus is up at 5.2. Bilirubin is 0.6, AST 27, ALT 18, alkaline phosphatase 54. LDH is 193. Albumin 2.3. Arterial blood gases this morning showed a pH of 7.53, pCO2 of 38, pO2 of 66; this is on a pressure control mode with a ventilation rate of 14, peak pressure of 14/peep of 5, FiO2 of 0.4. DIAGNOSTIC IMAGING STUDIES: Her chest x-ray shows little change to my eye. The formal report is pending. The electrocardiogram showed some possible prior anterior injury. No acute changes. Echocardiogram results are pending. MICROBIOLOGY STUDIES: On review, there were two blood cultures drawn in the night. Sputum culture has shown no organisms. MEDICATIONS: On review, she was started on ceftriaxone and azithromycin in the night. She is receiving Precedex drip, Versed drip, Lovenox 40 mg q. a.m., Protonix 40 mg daily, Lasix 80 mg twice daily, nebulized bronchodilator with Albuterol and ipratropium. ASSESSMENT/PLAN: 1. The primary problem requiring critical attention is acute respiratory failure. We will proceed with a sedation vacation and a weaning trial. 2. Pulmonary edema/anasarca. The patient is diuresing well with the Lasix. Her creatinine is up slightly, but I will continue with 80 of Lasix twice a day. 3. Obesity hypoventilation syndrome. The patient may require BiLevel pressure therapy if she is able to extubate. 4. Infectious disease. The patient's fever was minimal at 100.8. White cell count is normal at this point. Sputum showed no bacteria. Blood cultures are pending and if the blood cultures are negative, I would be tempted to stop antibiotic therapy. 5. Obstructive sleep apnea syndrome. We are suspicious of this condition based on her body habitus. Evaluation will have to wait until her acute illness is fully addressed. 6. Deep vein thrombosis (DVT) prophylaxis being addressed with subcutaneous heparin q. 12 hours. 7. Ulcer prophylaxis being addressed with IV Protonix. 8. Nutritional support. At this point if the patient is unable to wean, we will begin tube feeding. I have discussed the patient's status and updates with the hospitalist attending service. We have updated the nursing staff on the care plan and the goals of care for the day. CRITICAL CARE TIME: 122 minutes spent in the provision of bedside critical care and coordination, excluding any time for the performance of procedures.
--- NOTE | 2020-11-02 16:04 | IPNPDOC ---
Subjective Date Seen The patient was seen on 11/02/20. Subjective Chief Complaint/HPI Mrs. Freitas is a 65 year old female with class 3 obesity and COPD who presents with acute hypoxic hypercapnic respiratory failure. Overnight, she spiked a fever of 100.8. Blood cultures and sputum cultures were obtained and patient was started on antibiotics. Otherwise, she is on a sedation vacation. When I saw her, she was still intubated. The pitting edema in the legs have improved. She diuresed 4.6L yesterday. Objective Physical Examination General Exam: Negative: Alert (Sedated) Chest Exam: Positive: Clear to auscultation Heart Exam: Positive: Rate Normal, Regular Rhythm Abdomen Exam: Positive: BS Hypoactive, Soft, Other (obese) Extremity Exam: Positive: Edema (bilateral pitting edema) Neuro Exam: Negative: Other (Sedated and intubated) Psych Exam: Negative: Mental status NL (sedated and intubated) Assessment /Plan Assessment Mrs. Freitas is a 65 year old female with class 3 obesity and COPD who presents with acute hypoxic hypercapnic respiratory failure. Patient failed NIPPV and was intubated morning of 11/01/2020. Her respiratory failure is most likely secondary to a combination of obesity hypoventilation syndrome and CHF/pulmonary hypertension. Patient has been intubated and being diuresed. Pulmonary/critical care following, recommendations appreciated. Plan/VTE VTE Prophylaxis Ordered?: Yes Plan 1. Acute hypoxic hypercapnic respiratory failure -May be due to a combination of obesity hypoventilation syndrome and CHF/pulm hypertension -Pending echocardiogram results -Intubated and on sedation vacation -Being diuresed -On evening of 11/01/2020, had fever. Possible pneumonia. Ceftriaxone and Azithromycin started, Day 1 -Pulmonary/critical care following, recommendations appreciated 2. Metabolic encephalopathy -Secondary to hypercarbia -Intubated and on sedation vacation 3. Facial paresthesias -CT head negative -Patient intubated and on sedation vacation. Will reassess after extubated 4. Left upper lobe opacity -May need a biopsy when patient is more stable 5. Hypertension -Diltiazem and lisinopril on hold 6. Obesity -BMI 71.3 -Complicating care and contributing to patient's respiratory failure 7. DVT ppx -Lovenox Disposition: Continues to be intubated in the ICU. On sedation vacation today VS, I&O, 24H, [facility] Vital Signs/I&O Vital Signs Date Time Temp Pulse Resp B/P (MAP) Pulse Ox O2 Delivery O2 Flow Rate FiO2 11/02/20 15:40 21 90 50 11/02/20 12:00 98.3 85 106/53 (70) Ventilator 50.0 I&O- Last 24 Hours up to 6 AM 11/02/20 06:00 Intake Total 602.5 ml Output Total 4810 ml Balance -4207.5 ml Laboratory Data 24H LABS Laboratory Tests 2 11/01/20 16:52: Blood Gas Bicarbonate Standard 38.9H, Arterial Blood pH 7.603*H, Arterial Blood Partial Pressure CO2 39.2, Arterial Blood Partial Pressure O2 61.2L, Arterial Blood Total CO2 39.1H, Arterial Blood HCO3 37.9H, Arterial Blood Base Excess 15.1H, Arterial Blood Oxygen Saturation 94.3L 11/01/20 17:33: Bedside Glucose (Misc Panel) 119H 11/01/20 18:06: Anion Gap 7L, Glomerular Filtration Rate 46.8, Calcium Level 7.9L, Phosphorus Level 4.0, Albumin 2.4L 11/01/20 21:28: Lactic Acid Level 1.6 11/01/20 21:29: Urine Color YELLOW, Urine Appearance CLEAR, Urine pH 6.0, Urine Specific E[place] 1.010, Urine Protein NEGATIVE, Urine Glucose (UA) NEGATIVE, Urine Ketones NEGATIVE, Urine Blood 2+H, Urine Nitrite NEGATIVE, Urine Bilirubin NEGATIVE, Urine Urobilinogen 0.2, Urine Leukocyte Esterase NEGATIVE, Urine WBC (Auto) 2, Urine RBC (Auto) 56H, Urine Hyaline Casts (Auto) 1, Urine Bacteria (Auto) NEGATIVE, Urine Squamous Epithelial Cells 0, Urine Mucus (Auto) SMALL, Urine Sperm (Auto) 11/01/20 21:50: Methicillin-Resist S.aureus DNA PCR NOT DETECTED 11/01/20 23:15: Bedside Glucose (Misc Panel) 144H 11/02/20 00:27: HIV Antigen/Antibody Combo Qual NEGATIVEA 11/02/20 04:32: Immature Granulocyte % (Auto) 0.6, Neutrophils (%) (Auto) 85.2H, Lymphocytes (%) (Auto) 5.1L, Monocytes (%) (Auto) 9.0H, Eosinophils (%) (Auto) 0.0, Basophils (%) (Auto) 0.1, Neutrophils # (Auto) 6.8, Lymphocytes # (Auto) 0.4L, Monocytes # (Auto) 0.7, Eosinophils # (Auto) 0.0, Basophils # (Auto) 0.0, Nucleated Red Blood Cells % (auto) 0.6H, Anion Gap 5L, Glomerular Filtration Rate 41.0L, Calcium Level 7.8L, Phosphorus Level 5.2#H, Total Bilirubin 0.6, Aspartate Amino Transf (AST/SGOT) 27, Alanine Aminotransferase (ALT/SGPT) 18, Alkaline Phosphatase 54, Lactate Dehydrogenase 193, Total Creatine Kinase 271H, Total Protein 5.9L, Albumin 2.3L, Albumin/Globulin Ratio 0.6L, Triglycerides Level 90, Cholesterol Level 137 11/02/20 05:19: Blood Gas Bicarbonate Standard 32.3H, Arterial Blood pH 7.531H, Arterial Blood Partial Pressure CO2 38.9, Arterial Blood Partial Pressure O2 66.6L, Arterial Blood Total CO2 33.0H, Arterial Blood HCO3 31.8H, Arterial Blood Base Excess 8.6H, Arterial Blood Oxygen Saturation 93.8L 11/02/20 05:27: Bedside Glucose (Misc Panel) 147H 11/02/20 11:17: Bedside Glucose (Misc Panel) 169H CBC/BMP Laboratory Tests 11/01/20 18:06 11/02/20 04:32 Microbiology Microbiology 11/01/20 Blood Culture, Received Pending 11/01/20 Blood Culture, Received Pending 11/01/20 Gram Stain - Final, Resulted 11/01/20 Sputum Culture, Resulted Pending TEZ MOHR 28, 2021 15:54
[2020-11-02] MEDS: cefTRIAXone SOD 1 GM in D5W MINI-BAG PLUS 50 ML IV SCH (20:50)
[2020-11-02] MEDS: AZITHROMYCIN INJ 500 MG, VIAL MATE ADAPTER 1 EACH in NS 250 ML IV SCH (22:03)
[2020-11-03] VITALS (17 sets, daily range): BP systolic 93–129; BP diastolic 50–70
[2020-11-03] MEDS: MIDAZOLAM INJ 2MG/2ML VIAL (J2250 PER 1MG) IV PRN ×3 (01:38→03:22)
[2020-11-03 04:43] LABS: BASO % 0.2 % (0.0-1.0); EOS % 0.2 % (0.0-3.0); HEMATOCRIT 45.7 % (36.0-47.0); HEMOGLOBIN 13.4 g/dl (12.0-15.5); LYMPH # 0.9 10^3/uL (1.5-5.0); LYMPH % 9.4 % (24.0-44.0); MEAN CORPUSCULAR HEMOGLOBIN 24.1 pg (27.0-33.0); MEAN CORPUSCULAR HGB CONC 29.3 g/dl (32.0-36.5); MONO # 0.9 10^3/uL (0.0-0.8); MONO % 9.2 % (2.0-8.0); NEUTROPHILS % 80.5 % (36.0-66.0); PLATELET COUNT, AUTOMATED 287 10^3/uL (150-450); RED BLOOD COUNT 5.57 10^6/uL (4.00-5.40)
[2020-11-03 05:13] LABS: ALBUMIN 2.6 GM/DL (3.2-5.2); BILIRUBIN,TOTAL 0.6 MG/DL (0.2-1.0); CALCIUM LEVEL 8.3 MG/DL (8.8-10.2); CREATININE FOR GFR 1.53 MG/DL (0.55-1.30); GLOMERULAR FILTRATION RATE 36.4 (>45); PHOSPHORUS LEVEL 5.6 MG/DL (2.5-4.9); POTASSIUM SERUM 3.7 MEQ/L (3.5-5.1); TOTAL PROTEIN 6.4 GM/DL (6.4-8.2)
[2020-11-03] MEDS: HumaLOG INSULIN (NovoLOG) PER UNIT SC SCH ×4 (05:15→17:25)
[2020-11-03 05:55] LABS: ABG BASE EXCESS 13.5 (-2.0-2.0); ABG HCO3 38.2 MEQ/L (22.0-26.0); ABG O2 SATURATION 95.9 % (95.0-99.0); ABG PARTIAL PRESSURE O2 78.2 mmHg (75.0-100.0); ABG STANDARD HCO3 37.3 MEQ/L (22.0-26.0); ABG TOTAL CO2 39.7 MEQ/L (23.0-31.0); ABG pH (ARTERIAL) 7.519 UNITS (7.350-7.450)
--- NOTE | 2020-11-03 07:54 | REP ---
INDICATION: ett. COMPARISON: Comparison chest x-ray November 02, 2020. TECHNIQUE: Portable upright AP chest radiograph. FINDINGS: EKG monitoring electrodes are seen. Cardiomegaly is observed. Right hemidiaphragm is somewhat elevated. Aeration in the left base is actually a little better. Endotracheal tube is been removed. No new infiltrate.. IMPRESSION: Endotracheal tube removed. Aeration in the left base slightly improved. Otherwise unchanged.. <Electronically signed by Edward Chatterjee > 11/03/20 [id number]
[2020-11-03 08:06] LABS: ABG BASE EXCESS 9.8 (-2.0-2.0); ABG O2 SATURATION 91.6 % (95.0-99.0); ABG PARTIAL PRESSURE O2 69.5 mmHg (75.0-100.0); ABG STANDARD HCO3 33.4 MEQ/L (22.0-26.0); ABG TOTAL CO2 40.1 MEQ/L (23.0-31.0); ABG pH (ARTERIAL) 7.365 UNITS (7.350-7.450)
[2020-11-03] MEDS: IPRATROPIUM 0.5MG/ALBUTEROL 2.5MG INH SOL UD 3ML (DUONEB) NEB SCH ×4 (08:10→20:50)
[2020-11-03 08:11] LABS: ABG PARTIAL PRESSURE CO2 68.1 mmHg (35.0-45.0)
[2020-11-03] MEDS: PANTOPRAZOLE 40MG VIAL (C9113 PER 1) IV SCH (09:26)
[2020-11-03] MEDS: ENOXAPARIN 40MG/0.4ML SYRINGE (J1650 PER 10MG) SC SCH (09:26)
[2020-11-03] MEDS ORDERED: VERAPAMIL 5MG/2ML VIAL IV STA ×3 (10:43→17:03)
[2020-11-03 10:57] LABS: ABG BASE EXCESS 14.8 (-2.0-2.0); ABG O2 SATURATION 89.5 % (95.0-99.0); ABG PARTIAL PRESSURE O2 60.3 mmHg (75.0-100.0); ABG STANDARD HCO3 38.5 MEQ/L (22.0-26.0); ABG TOTAL CO2 46.4 MEQ/L (23.0-31.0); ABG pH (ARTERIAL) 7.377 UNITS (7.350-7.450)
[2020-11-03 11:00] LABS: ABG PARTIAL PRESSURE CO2 76.7 mmHg (35.0-45.0)
--- NOTE | 2020-11-03 11:08 | CCN ---
CRITICAL CARE NOTE DATE: 11/03/2020 SUBJECTIVE: The patient is seen in the intensive care unit having been intubated through the night. At 6:30 this morning, she partially removed her endotracheal tube and we completely removed the endotracheal tube as it was not functional. She does have reasonably good spontaneous respiratory effort. OBJECTIVE: VITAL SIGNS: At bedside, her temperature is 98, pulse rate 115, respirations 20 spontaneous, and blood pressure 107/58. INTAKE AND OUTPUT: For the past 24 hours, 863 in and 4620 out. Since midnight 0 in and 630 out. Her accumulative I&O since admission to the hospital [facility] her negative at 9 liters. GENERAL APPEARANCE: At bedside, she is ill-appearing. HEENT: Oral mucosa is pink. The endotracheal tube and orogastric tube have now been removed. NECK: Jacome. I am unable to appreciate jugular veins, but supple. No adenopathy is palpable. HEART: Sounds are regular, quite distant. LUNGS: Breath sounds diminished with scattered rales. ABDOMEN: Morbidly obese with edema of the abdominal wall. EXTREMITIES: Grossly edematous. Peripheral pulses are palpable. DIAGNOSTIC STUDIES: Her white cell count is up slightly at 10. Differential white cell count shows 80% neutrophils. Hemoglobin is also up to 13.4, hematocrit 45.7, and platelet count 287,000. Electrolytes are sodium 141, potassium 3.7, chloride 92, CO2 is up to 44. BUN is 35, creatinine is up to 1.53, glucose is 80. Calcium is 8.3 on an albumin of 2. 6. The phosphorus is 5.6, AST 26, ALT 18, alkaline phosphatase 50. LDH is 227. Her CPK is slightly elevated at 256. Arterial blood gases showed a pH of 7.51, pCO2 of 48, and pO2 of 78. This pressure support mode of ventilation, peak of 10/PEEP of 5, FiO2 of 0.4. DIAGNOSTIC IMAGING: Chest imaging was performed just now after removal of the endotracheal tube and the interstitial markings are improved. MEDICATIONS: On review, she is receiving Lovenox 40 mg a day, Protonix 40 mg a day, DuoNebs q.i.d., ceftriaxone, and azithromycin. This is day #2 of antibiotic therapy. ASSESSMENT AND PLAN: 1. The primary problem requiring critical attention is acute respiratory failure. The patient was just extubated, but we will place her on aerosol oxygen and repeat an arterial blood gas. Pending the results of the blood gas, it may be necessary to transition her to noninvasive ventilation for a period of time. 2. Pulmonary edema. The patient has responded nicely to diuresis. We will hold the Lasix for a day in light of the elevated creatinine and bicarb. 3. Obesity hypoventilation syndrome. Blood gases are pending. Noninvasive ventilation may be due to as noted above. 4. Infectious disease. This is day #2 of Rocephin and azithromycin. There is no clear source of infection at this point. Sputum culture is negative. Blood cultures remains pending. 5. Obstructive sleep apnea syndrome. The patient will need to pursue outpatient evaluation. 6. Deep vein thrombosis (DVT) prophylaxis being addressed with subcutaneous heparin. 7. Ulcer prophylaxis being addressed with Protonix. 8. Nutritional support. If the patient is able to maintain herself extubated, we will start clear liquids. The patient's condition remains critical. Prognosis is guarded. ICU care remains appropriate. I will review the case with the attending hospitalist service. I have reviewed the plan of care with the ICU nursing team and goals of care for the day have been established. CRITICAL CARE TIME: 62 minutes was spent in the provision of bedside critical care and coordination, exclusive of any procedure time.
[2020-11-03] MEDS ORDERED: VERAPAMIL 5MG/2ML VIAL IV ONE (11:45)
[2020-11-03 12:42] LABS: HEP C VIRUS AB INDEX SOURCE PT < 0.0 INDEX (0.0-0.8); HEPATITIS B SURFACE ANTIGEN NEGATIVE (NEGATIVE)
--- NOTE | 2020-11-03 13:52 | ECHO ---
DATE OF PROCEDURE: 11/01/2020 Age: 65 Gender: Female Height: 60 inches Weight: 315 pounds REFERRING PHYSICIAN: Ivy Pal MD. INDICATION: Dyspnea. MEASUREMENTS: 2D Measurements: Aortic root 3.0 cm Proximal ascending aorta 3.6 cm Left atrium 3.1 cm Intraventricular septum 1.60 cm Posterior wall 1.45 cm Left ventricle diastole 3.4 cm Doppler Measurements: Aortic valve velocity 266 cm/s Peak aortic valve gradient 28 mmHg Mean aortic valve gradient 14 mmHg LVOT velocity 119 cm/s No aortic regurgitation Very mild aortic stenosis No mitral regurgitation No mitral stenosis No tricuspid regurgitation No pulmonic regurgitation Mitral E velocity 68.5 cm/s Mitral A velocity 104 cm/s Pulmonary artery systolic pressure 30 mmHg by pulmonary acceleration time DESCRIPTION: Rhythm was sinus tachycardia. This was a technically difficult echocardiogram, which was performed with the patient supine on a ventilator and frequent coughing. CONCLUSIONS: 1. Moderate concentric left ventricular hypertrophy with mild reduction in LV cavity size. Normal LV systolic function. LVEF 70% by visual estimate. Technically difficult for precise endocardial visualization and therefore for complete regional wall motion analysis. However, no obvious regional wall motion abnormalities were observed. LV diastolic function indeterminate due to presence of sinus tachycardia. Also indeterminate due to absence of mitral annular tissue Doppler assessment. 2. Technically difficult echocardiogram. 3. Moderate aortic valve sclerosis. Technically difficult for determination of number of aortic cusps. Very mild aortic stenosis. No aortic regurgitation. 4. Suggestive of normal pulmonary artery systolic pressure. 5. No pericardial effusion. MTDD
[2020-11-03] MEDS: VERAPAMIL 80MG TABLET PO SCH ×2 (16:00→21:00)
[2020-11-03 18:16] LABS: ABG O2 SATURATION 97.2 % (95.0-99.0); ABG PARTIAL PRESSURE CO2 84.1 mmHg (35.0-45.0); ABG PARTIAL PRESSURE O2 99.7 mmHg (75.0-100.0); ABG STANDARD HCO3 36.8 MEQ/L (22.0-26.0); ABG TOTAL CO2 45.6 MEQ/L (23.0-31.0); ABG pH (ARTERIAL) 7.327 UNITS (7.350-7.450)
--- NOTE | 2020-11-03 18:58 | IPNPDOC ---
Subjective Date Seen The patient was seen on 11/03/20. Subjective Chief Complaint/HPI Mrs. Freitas is a 65 year old female with class 3 obesity and COPD who presents with acute hypoxic hypercapnic respiratory failure. Around 6:20AM patient's tube was dislodged. Since it was dislodged, she was extubated, and put on venti mask. She was arousable, but lethargic in the morning. Objective Physical Examination General Exam: Positive: Cooperative; Negative: Alert (Sedated) Chest Exam: Positive: Clear to auscultation Heart Exam: Positive: Rate Normal, Regular Rhythm Abdomen Exam: Positive: BS Hypoactive, Soft, Other (obese) Extremity Exam: Positive: Edema (bilateral pitting edema) Neuro Exam: Negative: Other (Sedated and intubated) Psych Exam: Negative: Mental status NL (sedated and intubated) Assessment /Plan Assessment Mrs. Freitas is a 65 year old female with class 3 obesity and COPD who presents with acute hypoxic hypercapnic respiratory failure. Patient failed NIPPV and was intubated morning of 11/01/2020. Her respiratory failure is most likely secondary to a combination of obesity hypoventilation syndrome and CHF/pulmonary hypertension. Patient has been intubated and being diuresed. Pulmonary/critical care following, recommendations appreciated. Patient was extubated on 11/03/2020. She was put on Ventimask, then transitioned to BIPAP this evening. Plan/VTE VTE Prophylaxis Ordered?: Yes Plan 1. Acute hypoxic hypercapnic respiratory failure -May be due to a combination of obesity hypoventilation syndrome and CHF/pulm hypertension -Echocardiogram demonstrated EF of 70%, diastolic function indeterminate due to sinus tachycardia -Intubated on 11/01/2020 and extubated on 11/03/2020 -On evening of 11/01/2020, had fever. Possible pneumonia. Ceftriaxone and Azithromycin started, Day 2 -Pulmonary/critical care following, recommendations appreciated 2. Metabolic encephalopathy -Secondary to hypercarbia -On BIPAP 3. Facial paresthesias -CT head negative -Patient still lethargic. Will reassess if still present after extubated and alert 4. Left upper lobe opacity -May need a biopsy when patient is more stable 5. Hypertension -Blood pressure low -Diltiazem and lisinopril on hold 6. Obesity -BMI 71.3 -Complicating care and contributing to patient's respiratory failure 7. DVT ppx -Lovenox Disposition: Extubated today. On BIPAP in the ICU. Pending clinical improvement VS, I&O, 24H, Fishbone Vital Signs/I&O Vital Signs Date Time Temp Pulse Resp B/P (MAP) Pulse Ox O2 Delivery O2 Flow Rate FiO2 11/03/20 18:00 91 22 109/53 (71) 95 NIPPV (BIPAP/CPAP) 50 11/03/20 16:00 98.4 11/03/20 10:34 4.0 I&O- Last 24 Hours up to 6 AM 11/03/20 05:59 Intake Total 515 ml Output Total 5090 ml Balance -4575 ml Laboratory Data 24H LABS Laboratory Tests 2 11/03/20 00:09: Bedside Glucose (Misc Panel) 98 11/03/20 02:05: Bedside Glucose (Misc Panel) 86 11/03/20 04:32: Immature Granulocyte % (Auto) 0.5, Neutrophils (%) (Auto) 80.5H, Lymphocytes (%) (Auto) 9.4L, Monocytes (%) (Auto) 9.2H, Eosinophils (%) (Auto) 0.2, Basophils (%) (Auto) 0.2, Neutrophils # (Auto) 8.0, Lymphocytes # (Auto) 0.9L, Monocytes # (Auto) 0.9H, Eosinophils # (Auto) 0.0, Basophils # (Auto) 0.0, Nucleated Red Blood Cells % (auto) 0.2H, Anion Gap 5L, Glomerular Filtration Rate 36.4L, Calcium Level 8.3L, Phosphorus Level 5.6H, Total Bilirubin 0.6, Aspartate Amino Transf (AST/SGOT) 26, Alanine Aminotransferase (ALT/SGPT) 18, Alkaline Phosphatase 50, Lactate Dehydrogenase 227, Total Creatine Kinase 256H, Total Protein 6.4, Albumin 2.6L, Albumin/Globulin Ratio 0.7L, Triglycerides Level 138, Cholesterol Level 161 11/03/20 05:50: Blood Gas Bicarbonate Standard 37.3H, Arterial Blood pH 7.519H, Arterial Blood Partial Pressure CO2 48.0H, Arterial Blood Partial Pressure O2 78.2, Arterial Blood Total CO2 39.7H, Arterial Blood HCO3 38.2H, Arterial Blood Base Excess 13.5H, Arterial Blood Oxygen Saturation 95.9 11/03/20 07:40: Blood Gas Bicarbonate Standard 33.4H, Arterial Blood pH 7.365, Arterial Blood Partial Pressure CO2 68.1*H, Arterial Blood Partial Pressure O2 69.5L, Arterial Blood Total CO2 40.1H, Arterial Blood HCO3 38.0H, Arterial Blood Base Excess 9.8H, Arterial Blood Oxygen Saturation 91.6L 11/03/20 10:45: Blood Gas Bicarbonate Standard 38.5H, Arterial Blood pH 7.377, Arterial Blood Partial Pressure CO2 76.7*H, Arterial Blood Partial Pressure O2 60.3L, Arterial Blood Total CO2 46.4H, Arterial Blood HCO3 44.0H, Arterial Blood Base Excess 14.8H, Arterial Blood Oxygen Saturation 89.5L, Oxygen Delivery Device NASAL LUISITO 11/03/20 11:19: Bedside Glucose (Misc Panel) 89 11/03/20 17:24: Bedside Glucose (Misc Panel) 87 11/03/20 17:41: 11/03/20 18:05: Blood Gas Bicarbonate Standard 36.8H, Arterial Blood pH 7.327L, Arterial Blood Partial Pressure CO2 84.1*H, Arterial Blood Partial Pressure O2 99.7, Arterial Blood Total CO2 45.6H, Arterial Blood HCO3 43.0H, Arterial Blood Base Excess 13.0H, Arterial Blood Oxygen Saturation 97.2 CBC/BMP Laboratory Tests 11/03/20 04:32 Microbiology Microbiology 11/01/20 Blood Culture - Preliminary, Resulted No growth after 24 hours . All specim... 11/01/20 Blood Culture - Preliminary, Resulted No growth after 24 hours . All specim... 11/01/20 Gram Stain - Final, Resulted 11/01/20 Sputum Culture, Resulted Pending TEZ MOHR 29, 2021 18:58
[2020-11-03 19:00] LABS: CALCIUM LEVEL 8.5 MG/DL (8.8-10.2); CREATININE FOR GFR 1.34 MG/DL (0.55-1.30); GLOMERULAR FILTRATION RATE 42.4 (>45); PHOSPHORUS LEVEL 7.2 MG/DL (2.5-4.9); POTASSIUM SERUM 3.3 MEQ/L (3.5-5.1)
[2020-11-03] MEDS: cefTRIAXone SOD 1 GM in D5W MINI-BAG PLUS 50 ML IV SCH (21:46)
[2020-11-03] MEDS ORDERED: KCL 10MEQ/100ML SWI (KRUN) 10 MEQ in IV 1 EA IV ONE (22:10)
[2020-11-03] MEDS: AZITHROMYCIN INJ 500 MG, VIAL MATE ADAPTER 1 EACH in NS 250 ML IV SCH (23:01)
[2020-11-04] VITALS (11 sets, daily range): BP systolic 94–152; BP diastolic 45–74
[2020-11-04] MEDS: DEXTROSE 50% 50 ML SYRINGE IV PRN ×3 (00:15→11:35)
[2020-11-04 05:11] LABS: BASO % 0.4 % (0.0-1.0); EOS # 0.2 10^3/uL (0.0-0.5); EOS % 3.2 % (0.0-3.0); HEMATOCRIT 44.2 % (36.0-47.0); HEMOGLOBIN 12.7 g/dl (12.0-15.5); LYMPH # 0.9 10^3/uL (1.5-5.0); LYMPH % 17.8 % (24.0-44.0); MEAN CORPUSCULAR HEMOGLOBIN 24.5 pg (27.0-33.0); MEAN CORPUSCULAR HGB CONC 28.7 g/dl (32.0-36.5); MEAN CORPUSCULAR VOLUME 85.2 fl (80.0-96.0); MONO # 0.6 10^3/uL (0.0-0.8); MONO % 11.4 % (2.0-8.0); NEUTROPHILS # 3.5 10^3/uL (1.5-8.5); NEUTROPHILS % 66.8 % (36.0-66.0); PLATELET COUNT, AUTOMATED 248 10^3/uL (150-450); RED BLOOD COUNT 5.19 10^6/uL (4.00-5.40); WHITE BLOOD COUNT 5.3 10^3/uL (4.0-10.0)
[2020-11-04 05:47] LABS: ABG BASE EXCESS 13.2 (-2.0-2.0); ABG HCO3 39.4 MEQ/L (22.0-26.0); ABG O2 SATURATION 97.6 % (95.0-99.0); ABG PARTIAL PRESSURE CO2 56.9 mmHg (35.0-45.0); ABG PARTIAL PRESSURE O2 98.5 mmHg (75.0-100.0); ABG TOTAL CO2 41.1 MEQ/L (23.0-31.0); ABG pH (ARTERIAL) 7.458 UNITS (7.350-7.450)
[2020-11-04] MEDS: HumaLOG INSULIN (NovoLOG) PER UNIT SC SCH ×5 (06:00→21:00)
[2020-11-04 06:31] LABS: ALBUMIN 2.5 GM/DL (3.2-5.2); BILIRUBIN,TOTAL 0.5 MG/DL (0.2-1.0); CALCIUM LEVEL 8.2 MG/DL (8.8-10.2); CREATININE FOR GFR 1.01 MG/DL (0.55-1.30); GLOMERULAR FILTRATION RATE 58.7 (>45); PHOSPHORUS LEVEL 2.9 MG/DL (2.5-4.9); POTASSIUM SERUM 3.5 MEQ/L (3.5-5.1)
[2020-11-04] MEDS: IPRATROPIUM 0.5MG/ALBUTEROL 2.5MG INH SOL UD 3ML (DUONEB) NEB SCH ×4 (07:18→19:48)
--- NOTE | 2020-11-04 08:00 | REP ---
INDICATION: ett. COMPARISON: Comparison chest x-ray November 03, 2020. TECHNIQUE: Portable upright AP chest radiograph. FINDINGS: Moderate cardiac enlargement is observed. Oxygen delivery tubing and EKG monitoring electrodes again seen. For the lungs are exposed at a low level of inspiration as before. EKG electrodes overlie the left hemidiaphragm although it appears somewhat obscured. Question left effusion. Pulmonary vasculature is cephalized.. IMPRESSION: Low level inspiration. Cardiomegaly. No definite new infiltrate. Left base not well seen.. <Electronically signed by Edward Chatterjee > 11/04/20 [id number]
--- NOTE | 2020-11-04 08:38 | ECGEPIP ---
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
[2020-11-04] MEDS: VERAPAMIL 80MG TABLET PO SCH (08:56)
[2020-11-04] MEDS: PANTOPRAZOLE 40MG VIAL (C9113 PER 1) IV SCH (09:06)
[2020-11-04] MEDS: FUROSEMIDE 40MG/4ML VIAL (J1940) IV SCH ×2 (09:07→16:11)
[2020-11-04] MEDS: ENOXAPARIN 40MG/0.4ML SYRINGE (J1650 PER 10MG) SC SCH (09:07)
--- NOTE | 2020-11-04 12:16 | CCN ---
CRITICAL CARE NOTE DATE: 11/04/2020 SUBJECTIVE: The patient is seen in the intensive care unit. This is hospital day #3. She suffered progressive decline in respiratory status last evening and was placed on noninvasive ventilation. Subsequently, she has tolerated the noninvasive ventilation reasonably well. There were two episodes of supraventricular tachycardia prior to this occasion, which responded to calcium channel blockers. This morning, she is more responsive, able to speak a few words. OBJECTIVE: VITAL SIGNS: Her temperature is 97, pulse rate 92, respirations 19, blood pressure 111/56, oxygen saturation 95% on 50% oxygen. INTAKE AND OUTPUT: For the past 24 hours, 0 in and 1415 out. Since midnight 405 in and 570 out. GENERAL APPEARANCE: At bedside, she is ill-appearing. The pressure mask is in place. Oral mucosa is pink. NECK: Jacome. HEART: Sounds regular without appreciable murmur. LUNGS: Breath sounds diminished. Some rales. Dullness in the bases. ABDOMEN: Soft and obese. EXTREMITIES: Edematous. Muscle weakness is noted. DIAGNOSTIC STUDIES: Her white cell count is down to 5.3. Differential white cell count shows 66.8% neutrophils. Hemoglobin is stable at 12.7, hematocrit 44.2, platelet count 248,000. Electrolyte evaluation shows a sodium of 143, potassium down to 3.5, chloride 96, CO2 of 42, BUN is 32, creatinine is down to 1.01, and glucose 59. Calcium is 8.2, phosphorus 2.9. The AST is 22, ALT 18, alkaline phosphatase 44. Lactate dehydrogenase 217 and albumin 2.5. Arterial blood gases this morning on noninvasive ventilation peak pressure of 20/PEEP of 6 with an FiO2 of 0.5 showed a pH of 7.45, pCO2 of 56, pO2 of 98. Chest x-ray continues to show interstitial edema. On review of microbiology studies gram stain of the sputum was negative. Blood cultures were negative x2. MEDICATIONS: On review, this is day #3 of azithromycin and Rocephin. She is receiving Lovenox 40 mg, Protonix 40 mg a day, DuoNebs. ASSESSMENT AND PLAN: 1. The primary problem requiring critical attention is acute on chronic respiratory failure. The patient is responding favorably to noninvasive positive pressure ventilation. We will try off and do oxygen as tolerated during the day. 2. Pulmonary edema. Creatinine has improved. Lasix will be restarted. 3. From an infectious disease standpoint given the negative cultures, I have discussed with the hospitalist service discontinuation of the antibiotics. 4. Paroxysmal supraventricular tachycardia likely related to the patient's other underlying medical issues. We will continue close monitoring. She has responded to calcium channel blockade. 5. Deep vein thrombosis (DVT) prophylaxis is in place. 6. Ulcer prophylaxis is in place. The patient's condition remains critical. Prognosis is guarded. The case was reviewed with the hospitalist service, as well as the ICU nursing team. Goals of care for the day were outlined. CRITICAL CARE TIME: 78 minutes was spent in the provision of bedside critical care and coordination, exclusive of any procedure times.
--- NOTE | 2020-11-04 13:20 | IPNPDOC ---
Text Note Date of Service The patient was seen on 11/04/20. NOTE Subjective: Patient alert, awake in the morning. Patient stated that she feels better today. Patient told me that she has appetite and wanted to eat Objective: GENERAL APPEARANCE: In moderate distress HEENT: no scleral icterus, no JVD, EOMI, pressure mask in place CARDIOVASCULAR: S1S2 LUNGS: Diminished lung sounds bilaterally ABDOMEN: soft & not tender w palpitation MUSCULOSKELETAL: no cyanosis, no swelling INTEGUMENT: +2 pitting edema NEUROLOGICAL: cranial nerve function from 2-12 intact intact, follows commands, speech not dysarthric Assessment and plan: PT is a 65 year old female with class 3 obesity and COPD who presents with acute hypoxic hypercapnic respiratory failure. Patient was intubated and successfully extubated on 11/03/20 Acute on chronic hypoxemic hypercapnic respiratory failure Most likely multifactorial. Secondary to CHF exacerbation, obesity h ypoventilation syndrome, pulmonary edema Patient started antibiotic therapy with ceftriaxone and azithromycin due to fever on 11/01/20 date 3. I discussed with Dr Bosch discontinuation of antibiotics given negative blood culture, negative sputum culture, no leukocytosis We will check procalcitonin Continue BiPAP, we will try oxygen as tolerated during the day Pulmonary edema Most likely secondary to CHF exacerbation Paroxysmal supraventricular tachycardia Most likely secondary to respiratory distress Continue verapamil and telemetry Metabolic encephalopathy Resolved Hypertension Continue cardioprotective medications with parameters Obesity BMI 71.3 Complicating care and contributing to patient's respiratory failure Patient will need sleep study in the outpatient settings Diastolic CHF BNP significantly elevated to over 3000 Is Os Fluid restriction to 1500 cc Continue Lasix IV twice a day Type 2 diabetes Insulin sliding scale Diabetes diet when patient will be able to breathe via nasal cannula [place] resolved VS,Fishbone, I+O VS, Fishbone, I+O Laboratory Tests 11/03/20 17:41 11/04/20 04:43 Vital Signs Date Time Temp Pulse Resp B/P (MAP) Pulse Ox O2 Delivery O2 Flow Rate FiO2 11/04/20 12:20 98.1 93 18 111/56 (74) 93 NIPPV (BIPAP/CPAP) 50 11/04/20 09:46 4.0 I&O- Last 24 Hours up to 6 AM 11/04/20 06:00 Intake Total 405 ml Output Total 1295 ml Balance -890 ml AD CABRERA DO Nov 04, 2020 13:20
[2020-11-04] MEDS ORDERED: LIDOCAINE 1% MDV 20ML VIAL As Ordered ONE (14:48)
[2020-11-04] MEDS ORDERED: VERAPAMIL 5MG/2ML VIAL IV STA ×3 (16:30→22:08)
--- NOTE | 2020-11-04 17:03 | REP ---
PROCEDURE NAME: PICC LINE INSERTION W/SITERITE CLINICAL INFORMATION: poor venous access. COMPARISON: None. PROCEDURE DESCRIPTION: The procedure was performed by ELIZABET Moffett, under the direct supervision of Dr. Chatterjee. The risks and benefits of the procedure were explained to the patient and an informed consent was obtained both verbally and written. Directly prior to the start of the procedure a formal time-out was completed in the patient's room as this procedure was done at bedside. The right cephalic vein was localized using ultrasound guidance. The skin was prepped and draped in sterile fashion. Five mL of 1% lidocaine 10 mg/mL was used as a local anesthetic. Using ultrasound guidance the right cephalic vein was cannulated, and a 0.018 guidewire was inserted and advanced to the level of SVC using fluoroscopic guidance. The needle was removed and a 5.5 Uzbek dilator and peel-away sheath was inserted over the guidewire. A 5.5 Uzbek dual lumen catheter was cut to a length of 40 cm. The dilator was removed and the catheter was inserted over the guidewire with the tip ending at the level of the SVC. The peel-away sheath was removed and the catheter was flushed with heparinized saline as per hospital protocol. The catheter was affixed to the skin and a sterile dressing was applied. The patient tolerated the procedure well and there were no immediate complications. CONCLUSION: PICC line insertion into the right cephalic vein. No fluoroscopy was utilized for this procedure. All imaging was taken with portable chest x-rays at the time of the procedure. <Electronically signed by Maya Gaxiola > 11/04/20 [id number] <Electronically signed by Edward Chatterjee > 11/04/20 [id number]
[2020-11-04] MEDS ORDERED: SODIUM CHLORIDE 0.9% INJ 10 ML SYR IV PRN (17:20)
[2020-11-04] MEDS ORDERED: KCL 10MEQ/100ML SWI (KRUN) 10 MEQ in IV 1 EA IV ONE (17:20)
[2020-11-04] MEDS: SODIUM CHLORIDE 0.9% INJ 10 ML SYR IV SCH (17:41)
[2020-11-04] MEDS ORDERED: SODIUM CHLORIDE 0.9% INJ 10 ML SYR IV SCH (18:00)
[2020-11-04 19:07] LABS: CALCIUM LEVEL 8.8 MG/DL (8.8-10.2); CREATININE FOR GFR 1.06 MG/DL (0.55-1.30); GLOMERULAR FILTRATION RATE 55.6 (>45); MAGNESIUM LEVEL 2.2 MG/DL (1.8-2.4); POTASSIUM SERUM 3.1 MEQ/L (3.5-5.1)
[2020-11-04] MEDS ORDERED: POTASSIUM CHLORIDE 10% LIQ 20 MEQ/15 ML UDC PO ONE (19:40)
[2020-11-05] VITALS (9 sets, daily range): BP systolic 100–129; BP diastolic 53–73
[2020-11-05] MEDS ORDERED: VERAPAMIL 5MG/2ML VIAL IV STA ×4 (02:06→04:35)
[2020-11-05 03:07] LABS: BLOOD UREA NITROGEN 22 MG/DL (7-18); CALCIUM LEVEL 8.4 MG/DL (8.8-10.2); CARBON DIOXIDE LEVEL 50 MEQ/L (21-32); CHLORIDE LEVEL 94 MEQ/L (98-107); CREATININE FOR GFR 1.07 MG/DL (0.55-1.30); GLUCOSE, FASTING 79 MG/DL (70-100); MAGNESIUM LEVEL 2.1 MG/DL (1.8-2.4); PHOSPHORUS LEVEL 2.1 MG/DL (2.5-4.9); POTASSIUM SERUM 3.7 MEQ/L (3.5-5.1); SODIUM LEVEL 140 MEQ/L (136-145)
[2020-11-05] MEDS ORDERED: POTASSIUM PHOSPHATE INJ 20 MMOL in D5W 250 ML IV ONE (04:30)
[2020-11-05 05:57] LABS: ABG HCO3 45.3 MEQ/L (22.0-26.0); ABG O2 SATURATION 98.1 % (95.0-99.0); ABG PARTIAL PRESSURE O2 97.3 mmHg (75.0-100.0); ABG STANDARD HCO3 42.2 MEQ/L (22.0-26.0); ABG TOTAL CO2 47.3 MEQ/L (23.0-31.0); ABG pH (ARTERIAL) 7.462 UNITS (7.350-7.450)
[2020-11-05 06:00] LABS: ABG PARTIAL PRESSURE CO2 64.9 mmHg (35.0-45.0)
[2020-11-05] MEDS: SODIUM CHLORIDE 0.9% INJ 10 ML SYR IV SCH ×2 (06:00→16:50)
[2020-11-05 06:47] LABS: BASO % 0.3 % (0.0-1.0); EOS # 0.3 10^3/uL (0.0-0.5); EOS % 4.7 % (0.0-3.0); HEMATOCRIT 44.7 % (36.0-47.0); HEMOGLOBIN 12.8 g/dl (12.0-15.5); LYMPH # 1.1 10^3/uL (1.5-5.0); LYMPH % 18.3 % (24.0-44.0); MEAN CORPUSCULAR HEMOGLOBIN 24.5 pg (27.0-33.0); MEAN CORPUSCULAR HGB CONC 28.6 g/dl (32.0-36.5); MEAN CORPUSCULAR VOLUME 85.5 fl (80.0-96.0); MONO # 0.8 10^3/uL (0.0-0.8); MONO % 12.6 % (2.0-8.0); NEUTROPHILS # 3.9 10^3/uL (1.5-8.5); NEUTROPHILS % 63.6 % (36.0-66.0); PLATELET COUNT, AUTOMATED 227 10^3/uL (150-450); RED BLOOD COUNT 5.23 10^6/uL (4.00-5.40); WHITE BLOOD COUNT 6.2 10^3/uL (4.0-10.0)
[2020-11-05 07:10] LABS: ALBUMIN 2.6 GM/DL (3.2-5.2); BILIRUBIN,TOTAL 0.6 MG/DL (0.2-1.0); CALCIUM LEVEL 8.9 MG/DL (8.8-10.2); CREATININE FOR GFR 1.06 MG/DL (0.55-1.30); GLOMERULAR FILTRATION RATE 55.6 (>45); POTASSIUM SERUM 3.7 MEQ/L (3.5-5.1); TOTAL PROTEIN 6.4 GM/DL (6.4-8.2)
[2020-11-05] MEDS: HumaLOG INSULIN (NovoLOG) PER UNIT SC SCH ×4 (07:30→21:00)
[2020-11-05] MEDS ORDERED: PILL CUTTER 1 EACH XX PRN (07:45)
--- NOTE | 2020-11-05 07:50 | REP ---
INDICATION: ett COMPARISON: 11/04/2020 TECHNIQUE: Portable AP view of the chest FINDINGS: Right PICC line with tip in the SVC. The mediastinum and cardiac silhouette are stable. The lung thornton demonstrate left lower lobe opacities suggesting consolidation and possible layering effusion. Right hemithorax is relatively clear. No obvious pneumothorax. Skeletal structures intact. IMPRESSION: Left lower lobe opacities suggesting consolidation and effusion similar to prior examination. <Electronically signed by Cecilio Romero > 11/05/20 0784
[2020-11-05] MEDS: IPRATROPIUM 0.5MG/ALBUTEROL 2.5MG INH SOL UD 3ML (DUONEB) NEB SCH ×4 (07:52→19:27)
[2020-11-05] MEDS: KCL 10MEQ/100ML SWI (KRUN) 10 MEQ in IV 1 EA IV ONE ×2 (08:32→08:42)
[2020-11-05] MEDS: FAMOTIDINE 20 MG TAB PO SCH (08:33)
[2020-11-05] MEDS: FUROSEMIDE 40MG/4ML VIAL (J1940) IV SCH ×2 (08:33→16:50)
[2020-11-05] MEDS: PANTOPRAZOLE 40MG VIAL (C9113 PER 1) IV SCH (08:33)
[2020-11-05] MEDS: ENOXAPARIN 40MG/0.4ML SYRINGE (J1650 PER 10MG) SC SCH (08:34)
--- NOTE | 2020-11-05 10:51 | CCN ---
CRITICAL CARE NOTE DATE: 11/05/2020 SUBJECTIVE: The patient is seen in the intensive care unit. This is hospital day #4. Over the evening, she had episodes of paroxysmal supraventricular tachycardia, which has responded to calcium channel blockers. She is tolerating off noninvasive positive pressure ventilation to supplemental oxygen at intervals. OBJECTIVE: GENERAL: She is more awake and interactive today. At bedside, she is ill-appearing. VITAL SIGNS: Her temperature is 98, pulse rate 92, respirations 20, blood pressure 109/63. Saturation of oxygen is 92% on 50% oxygen delivered. INTAKE AND OUTPUT: For the past 24 hours, 1185 in and 3480 out. Since midnight 100 in and 435 out. HEENT: Her mucosa are moist. NECK: Supple and patel. No stridor. HEART: Sounds regular, distant. RESPIRATORY: Breath sounds diminished with some scattered rales. ABDOMEN: Soft and obese. EXTREMITIES: Show edema. DIAGNOSTIC STUDIES: Her CBC shows a white count of 6.2, hemoglobin is stable at 12.8, hematocrit 44.7, platelet count 227,000. Differential white cell count shows 63.6 neutrophils. Electrolytes were sodium 140, potassium 3.7, chloride 94, CO2 of 45, BUN 22, creatinine 1.06, glucose 92, calcium 8.9 on an albumin of 2.6. The phosphorus is 3, AST 25, ALT 22, albumin 2.6, alkaline phosphatase is 43. Arterial blood gases this morning on noninvasive ventilation showed a pH of 7.46, pCO2 of 65, pO2 of 97. Chest imaging shows essentially no change from yesterday. MEDICATIONS: On review, she is receiving Lasix 40 mg q. 12 hours, diltiazem has been started, DuoNebs, Lovenox 40 q. 12 hours, IV Protonix, as well as oral Pepcid. MICROBIOLOGY: On review, gram stain for sputum was negative. Blood cultures are negative x2 and antibiotics begun empirically have been stopped. ASSESSMENT AND PLAN: 1. The primary problem requiring critical attention is acute on chronic respiratory failure. We will continue with noninvasive positive pressure ventilation and allow the patient off at intervals to supplemental oxygen. 2. Pulmonary edema. This appears to be resolving with diuresis. Her lung compliance is increased. 3. Paroxysmal supraventricular tachycardia. A long-acting calcium ludmila has been started. Will continue to monitor telemetry and use of short-acting dosing as needed. 4. Deep venous thrombosis (DVT) prophylaxis will be addressed Lovenox. 5. Ulcer prophylaxis. We will discontinue the intravenous (IV) Protonix and continue with oral Pepcid. The patient's condition remains critical. Prognosis is guarded. ICU care is appropriate. I have reviewed the case with the hospitalist service and discussed the plan of care for the day and goals of care for the day with the ICU nursing team. CRITICAL CARE TIME: 64 minutes was spent in the provision of bedside critical care and coordination, exclusive of any procedure time.
[2020-11-05 11:42] LABS: MAGNESIUM LEVEL 2.1 MG/DL (1.8-2.4)
--- NOTE | 2020-11-05 12:07 | IPNPDOC ---
Text Note Date of Service The patient was seen on 11/05/20. NOTE Subjective: In the morning patient was able to breathe via nasal cannula. Ove rnight she had a few episodes of SVT resolved after Cardizem. Objective: GENERAL APPEARANCE: NAD HEENT: no scleral icterus, no JVD, EOMI, breathing via nasal cannula CARDIOVASCULAR: S1S2 LUNGS: Diminished lung sounds bilaterally ABDOMEN: soft & not tender w palpitation MUSCULOSKELETAL: no cyanosis, no swelling INTEGUMENT: +2 pitting edema NEUROLOGICAL: cranial nerve function from 2-12 intact intact, follows commands, speech not dysarthric Assessment and plan: PT is a 65 year old female with class 3 obesity and COPD who presents with acute hypoxic hypercapnic respiratory failure. Patient was intubated and successfully extubated on 11/03/20 Acute on chronic hypoxemic hypercapnic respiratory failure Most likely multifactorial. Secondary to CHF exacerbation, obesity hypovent ilation syndrome, pulmonary edema Patient started antibiotic therapy with ceftriaxone and azithromycin due to fever on 11/01/20 date 3. I discussed with Dr Bosch discontinuation of antibiotics given negative blood culture, negative sputum culture, no leukocytosis procalcitonin 0.14 Continue BiPAP with intervals for supplemental oxygen Pulmonary edema Improved today Most likely secondary to CHF exacerbation Paroxysmal supraventricular tachycardia Most likely secondary to respiratory distress Restarted Cardizem 240 mg by mouth Metabolic encephalopathy Resolved Hypertension Continue cardioprotective medications with parameters Obesity BMI 71.3 Complicating care and contributing to patient's respiratory failure Patient will need sleep study in the outpatient settings Diastolic CHF BNP significantly elevated to over 3000 Is Os Fluid restriction to 1500 cc Continue Lasix IV twice a day Type 2 diabetes Insulin sliding scale Diabetes diet when patient will be able to breathe via nasal cannula [place] resolved VS,Fishbone, I+O VS, Fishbone, I+O Laboratory Tests 11/04/20 17:32 11/05/20 02:21 11/05/20 06:29 Vital Signs Date Time Temp Pulse Resp B/P (MAP) Pulse Ox O2 Delivery O2 Flow Rate FiO2 11/05/20 11:49 4.0 11/05/20 08:45 100 92 Nasal Cannula 11/05/20 08:33 103/56 11/05/20 08:00 98.2 24 11/05/20 04:00 50 I&O- Last 24 Hours up to 6 AM 3/31/21 06:00 Intake Total 880 ml Output Total 3355 ml Balance -2475 ml AD CABRERA DO Nov 05, 2020 12:07
[2020-11-05 14:26] LABS: BODY FLUID CULTURE Not indicated. (.); LEGIONELLA ANTIGEN URINE Negative (Negative); ORGANISM ID Not indicated. (.); SPECIMEN SOURCE Urine (.); URINE STREP PNEUMONIAE ANTIGEN Negative (Negative)
[2020-11-05] MEDS: SODIUM CHLORIDE 0.9% INJ 10 ML SYR IV PRN (16:51)
[2020-11-06] VITALS: BP 127/65
[2020-11-06 04:00] VITALS: BP 109/66
[2020-11-06] MEDS: SODIUM CHLORIDE 0.9% INJ 10 ML SYR IV SCH ×2 (05:31→17:12)
[2020-11-06 05:53] LABS: ABG BASE EXCESS 13.4 (-2.0-2.0); ABG HCO3 39.5 MEQ/L (22.0-26.0); ABG O2 SATURATION 98.3 % (95.0-99.0); ABG PARTIAL PRESSURE CO2 56.1 mmHg (35.0-45.0); ABG PARTIAL PRESSURE O2 105.3 mmHg (75.0-100.0); ABG STANDARD HCO3 37.2 MEQ/L (22.0-26.0); ABG TOTAL CO2 41.3 MEQ/L (23.0-31.0); ABG pH (ARTERIAL) 7.466 UNITS (7.350-7.450)
[2020-11-06 06:06] LABS: BASO % 0.4 % (0.0-1.0); EOS # 0.3 10^3/uL (0.0-0.5); EOS % 5.3 % (0.0-3.0); HEMATOCRIT 45.2 % (36.0-47.0); HEMOGLOBIN 13.1 g/dl (12.0-15.5); LYMPH # 1.1 10^3/uL (1.5-5.0); LYMPH % 18.8 % (24.0-44.0); MEAN CORPUSCULAR HEMOGLOBIN 24.4 pg (27.0-33.0); MEAN CORPUSCULAR VOLUME 84.3 fl (80.0-96.0); MONO # 0.7 10^3/uL (0.0-0.8); MONO % 12.7 % (2.0-8.0); NEUTROPHILS # 3.5 10^3/uL (1.5-8.5); NEUTROPHILS % 62.4 % (36.0-66.0); PLATELET COUNT, AUTOMATED 232 10^3/uL (150-450); RED BLOOD COUNT 5.36 10^6/uL (4.00-5.40); WHITE BLOOD COUNT 5.7 10^3/uL (4.0-10.0)
[2020-11-06 06:32] LABS: ALBUMIN 2.6 GM/DL (3.2-5.2); BILIRUBIN,TOTAL 0.7 MG/DL (0.2-1.0); CALCIUM LEVEL 8.7 MG/DL (8.8-10.2); CREATININE FOR GFR 1.06 MG/DL (0.55-1.30); GLOMERULAR FILTRATION RATE 55.6 (>45); PHOSPHORUS LEVEL 2.5 MG/DL (2.5-4.9); POTASSIUM SERUM 3.6 MEQ/L (3.5-5.1); TOTAL PROTEIN 6.6 GM/DL (6.4-8.2)
[2020-11-06] MEDS: HumaLOG INSULIN (NovoLOG) PER UNIT SC SCH ×4 (07:30→20:35)
[2020-11-06] MEDS: IPRATROPIUM 0.5MG/ALBUTEROL 2.5MG INH SOL UD 3ML (DUONEB) NEB SCH ×4 (07:37→19:39)
--- NOTE | 2020-11-06 07:52 | REP ---
INDICATION: ett. COMPARISON: Chest CT dated 11/01/2020 and portable chest dated 11/04/2020. TECHNIQUE: Portable AP chest with the patient upright. FINDINGS: There is cardiomegaly, unchanged. There is opacification of the left lung inferiorly, nonspecific, artifact from cardiomegaly versus left lower lobe infiltrate/effusion. There was no left lower lobe infiltrate or effusion on the comparison CT. However, the comparison CT there was a 10 mm poorly defined nodular density in the left upper lobe. The lung thornton are otherwise clear on the current portable chest. The right upper extremity PICC line is unchanged with the tip in the superior vena cava. IMPRESSION: Cardiomegaly. Left lower lobe infiltrate/effusion versus artifact from cardiomegaly. Right upper extremity PICC line, unchanged. <Electronically signed by Ben Roa > 11/06/20 0749
[2020-11-06 08:00] VITALS: BP 122/56
[2020-11-06] MEDS: FAMOTIDINE 20 MG TAB PO SCH (08:18)
[2020-11-06] MEDS: FUROSEMIDE 40MG/4ML VIAL (J1940) IV SCH ×2 (08:20→16:48)
[2020-11-06] MEDS: ENOXAPARIN 40MG/0.4ML SYRINGE (J1650 PER 10MG) SC SCH (08:21)
[2020-11-06 12:00] VITALS: BP 117/62
--- NOTE | 2020-11-06 12:01 | CCN ---
PULMONARY CRITICAL CARE NOTE DATE: 11/06/2020 SUBJECTIVE: The patient is seen in the intensive care unit, continues to require noninvasive ventilation, but was changed to a tabletop device. This is intensive care unit (ICU) day #4, hospital day #4. OBJECTIVE: At bedside, her temperature is 99, pulse rate 95, respirations 20, blood pressure 122/56, oxygen saturation 93%. Intake and output (I and O) for the past 24 hours: 1230 in, 2420 out since midnight, 1357 out. At bedside, she is ill-appearing. Oral mucosa is pink. She has dentures. Neck is supple and quite patel. Jugular venous are difficult to appreciate. HEART SOUNDS: Regular without appreciable murmur. BREATH SOUNDS: Symmetric, more rested. Breath sounds are quite diminished and there are still some scattered rales. ABDOMEN: Soft and obese. Bowel sounds in right lower quadrant. EXTREMITIES: Show persistence of edema, less tense than in days past. DIAGNOSTIC STUDIES: Her CBC shows a white count decreased to 5.7 with differential white cell count showing 62% neutrophils, hemoglobin is up at 13.1, hematocrit is up to 45.2, platelet count is 232,000. Electrolytes are sodium 138, potassium 3.6, chloride 92, CO2 is down slightly at 44, BUN is 18, creatinine is holding at 1.06, glucose is 76, her calcium is 8.7, phosphorus is 2.5. Liver enzymes are stable with AST of 37, ALT of 27, alkaline phosphatase is 40, LDH is 367, her albumin is 2.6. Arterial blood gasses this morning showed a pH of 7.46, pCO2 56, pO2 105. This on noninvasive ventilation. Imaging studies were reviewed. I see little change on her chest x-ray. The formal report is pending. MEDICATIONS: On medications review, she is receiving: - Lovenox 40 mg a day - Duo Nebs four times a day - Lasix 40 mg twice a day - diltiazem 240 mg daily - Pepcid 10 mg daily ASSESSMENT: The primary problem requiring critical attention is acute on chronic respiratory failure. The patient continues to require noninvasive positive pressure ventilation and is likely to do so during the day, for naps and at sleep. Her gas exchange is acceptable at this point on tabletop. We will continue with tabletop pressure therapy. Blood gasses are nearing her baseline. Pulmonary edema: Patient is now responding to diuresis and is slowly clearing fluids. I suspect there is a significant quantity of fluid yet to be cleared. Paroxysmal supraventricular tachycardia: The patient has been responsive to calcium channel blockers. No further episodes have been noted over the past 24 hours since the long-acting calcium ludmila was started. Deep venous thrombosis (DVT) prophylaxis is being addressed with sequential hose and Lovenox 40 mg daily. Ulcer prophylaxis is being addressed with Pepcid. I have reviewed the case with attending hospitalist service. I have updated the ICU nursing team with regard to the patient's status and goals of care for the day. Sixty-two minutes was spent in the provision of bedside critical care and coordination, excluding any time for the performance of any procedures.
[2020-11-06] MEDS ORDERED: POTASSIUM CHLORIDE 10 MEQ SR TABLET PO ONE (12:50)
--- NOTE | 2020-11-06 12:56 | IPNPDOC ---
Text Note Date of Service The patient was seen on 11/06/20. NOTE Subjective: In the morning patient states that she is doing better, her breath ing improved. No fever overnight Objective: GENERAL APPEARANCE: NAD HEENT: no scleral icterus, no JVD, EOMI, breathing via nasal cannula CARDIOVASCULAR: S1S2 LUNGS: Diminished lung sounds bilaterally ABDOMEN: soft & not tender w palpitation MUSCULOSKELETAL: no cyanosis, no swelling INTEGUMENT: +2 pitting edema NEUROLOGICAL: cranial nerve function from 2-12 intact intact, follows commands, speech not dysarthric Assessment and plan: PT is a 65 year old female with class 3 obesity and COPD who presents with acute hypoxic hypercapnic respiratory failure. Patient was intubated and successfully extubated on 11/03/20 Acute on chronic hypoxemic hypercapnic respiratory failure Most likely multifactorial. Secondary to CHF exacerbation, obesity hypoventilation syndrome, pulmonary edema Patient started antibiotic therapy with ceftriaxone and azithromycin due to fever on 11/01/20 date 3. I discussed with Dr Bosch discontinuation of antibiotics given negative blood culture, negative sputum culture, no leukocytosis procalcitonin 0.14 Continue tabletop BiPAP with intervals for supplemental oxygen Patient has slow improving in her breathing status. Pulmonary edema Most likely secondary to CHF exacerbation Slow improvement Patient developed good urine output, continue diuresis. Her weight decreased from 165 kilograms on 11/01/20 to 154 kg today Paroxysmal supraventricular tachycardia Most likely secondary to respiratory distress Continue Cardizem 240 mg by mouth Metabolic encephalopathy Resolved Hypertension Continue cardioprotective medications with parameters Obesity BMI 71.3 Complicating care and contributing to patient's respiratory failure Patient will need sleep study in the outpatient settings Diastolic CHF BNP was significantly elevated to over 3000 Is /Os Fluid restriction to 1500 cc Continue Lasix IV twice a day Type 2 diabetes Insulin sliding scale Diabetes diet [place] resolved VS,Fishbone, I+O VS, Fishbone, I+O Laboratory Tests 11/06/20 05:40 Vital Signs Date Time Temp Pulse Resp B/P (MAP) Pulse Ox O2 Delivery O2 Flow Rate FiO2 11/06/20 12:00 99.3 106 22 117/62 (80) 94 Nasal Cannula 3.0 11/05/20 04:00 50 I&O- Last 24 Hours up to 6 AM 11/06/20 06:00 Intake Total 1230 ml Output Total 2360 ml Balance -1130 ml AD CABRERA DO Nov 06, 2020 12:56
[2020-11-06] MEDS ORDERED: CEPACOL LOZENGE PO PRN (15:25)
[2020-11-06 16:00] VITALS: BP 105/53
[2020-11-06 20:00] VITALS: BP 107/59
[2020-11-07] VITALS (7 sets, daily range): BP systolic 99–134; BP diastolic 54–80; O2SAT 96
[2020-11-07 04:49] LABS: BASO % 0.5 % (0.0-1.0); EOS # 0.3 10^3/uL (0.0-0.5); EOS % 5.7 % (0.0-3.0); HEMATOCRIT 45.4 % (36.0-47.0); HEMOGLOBIN 13.1 g/dl (12.0-15.5); LYMPH # 1.1 10^3/uL (1.5-5.0); LYMPH % 17.5 % (24.0-44.0); MEAN CORPUSCULAR HEMOGLOBIN 24.3 pg (27.0-33.0); MEAN CORPUSCULAR HGB CONC 28.9 g/dl (32.0-36.5); MEAN CORPUSCULAR VOLUME 84.4 fl (80.0-96.0); MONO # 0.7 10^3/uL (0.0-0.8); MONO % 11.8 % (2.0-8.0); NEUTROPHILS # 3.8 10^3/uL (1.5-8.5); NEUTROPHILS % 63.8 % (36.0-66.0); PLATELET COUNT, AUTOMATED 215 10^3/uL (150-450); RED BLOOD COUNT 5.38 10^6/uL (4.00-5.40)
[2020-11-07 05:25] LABS: ALBUMIN 2.9 GM/DL (3.2-5.2); BILIRUBIN,TOTAL 0.6 MG/DL (0.2-1.0); CALCIUM LEVEL 8.7 MG/DL (8.8-10.2); CREATININE FOR GFR 1.06 MG/DL (0.55-1.30); GLOMERULAR FILTRATION RATE 55.6 (>45); PHOSPHORUS LEVEL 3.2 MG/DL (2.5-4.9); POTASSIUM SERUM 3.3 MEQ/L (3.5-5.1); TOTAL PROTEIN 6.2 GM/DL (6.4-8.2)
[2020-11-07] MEDS: SODIUM CHLORIDE 0.9% INJ 10 ML SYR IV SCH ×2 (05:57→18:08)
[2020-11-07] MEDS: HumaLOG INSULIN (NovoLOG) PER UNIT SC SCH ×4 (07:05→21:00)
[2020-11-07] MEDS: IPRATROPIUM 0.5MG/ALBUTEROL 2.5MG INH SOL UD 3ML (DUONEB) NEB SCH ×4 (07:14→19:33)
--- NOTE | 2020-11-07 07:42 | REP ---
INDICATION: ett. COMPARISON: 11/06/2020. TECHNIQUE: Portable AP chest with the patient semi upright. FINDINGS: There is no ETT. This is unchanged from the comparison study. Cardiac size is enlarged, as previously, and the heart obscures the inferior left lung as previously. There is a tiny wedge-shaped density peripherally in the right lung which could represent a small volume of fluid in the minor fissure. This is an interval change. The visualized lung thornton are otherwise clear. The right upper extremity PICC line is unchanged with the tip in the superior vena cava. The IMPRESSION: Lung thornton as described. Cardiomegaly. Right upper extremity PICC line unchanged. No ET tube is identified. <Electronically signed by Ben Roa > 11/07/20 0748
[2020-11-07] MEDS ORDERED: POTASSIUM CHLORIDE 10 MEQ SR TABLET PO ONE (08:00)
[2020-11-07] MEDS: FAMOTIDINE 20 MG TAB PO SCH (08:02)
[2020-11-07] MEDS: ENOXAPARIN 40MG/0.4ML SYRINGE (J1650 PER 10MG) SC SCH (08:03)
[2020-11-07] MEDS: FUROSEMIDE 40MG/4ML VIAL (J1940) IV SCH ×2 (08:03→16:47)
--- NOTE | 2020-11-07 11:55 | CCN ---
CRITICAL CARE NOTE DATE: 11/07/2020 SUBJECTIVE: I attended Elizabeth Freitas here in the intensive care unit. The patient has been examined and chart reviewed. She is still using the table top BiPAP for naps and at h.s. She is feeling much better she tells me. OBJECTIVE: VITAL SIGNS: T-max overnight 98 degrees. Blood pressure 105 to 130s. Heart rate generally in the 90s to low 100s with a sinus mechanism. Respiratory rate generally in the 20s. INTAKE AND OUTPUT: Yyqwejkp-os-byvjuldt 990 mL in with 2285 mL out. GENERAL: She is sitting at the bedside chair. She is comfortable. Denies any other complaints. HEENT: Otherwise normocephalic, atraumatic. Pupils reactive. Trachea is in the midline. CHEST: Shows markedly diminished, but symmetric expansion. There are some dependent crackles. No other focal adventitious breath sounds are identified. CARDIAC: Regular rhythm with no murmur or gallop. Peripheral pulses palpable. Edema persists. ABDOMEN: Morbidly obese and soft with active bowel sounds. EXTREMITIES: No cyanosis or clubbing. NEUROLOGIC: She is awake, alert, and appropriate. PSYCHIATRIC: Normal affect. LABORATORY DATA: Most recent laboratories show a white blood cell count of 6.0, hemoglobin 13, platelet count of 215,000, segs 63.8%, and no bands. Sodium 139, K of 3.3, chloride 94, CO2 of 41, BUN 25, creatinine 1.06. No recent blood gas. IMAGING DATA: Chest x-ray done this morning does persistent vascular congestion. IMPRESSION: 1. Acute on chronic respiratory failure both hypoxemic and hypercapnic. 2. Pulmonary edema. 3. Suspected significant obstructive sleep apnea (MATTIE). 4. Paroxysmal supraventricular tachycardia (PSVT). RECOMMENDATIONS: At this point, she has responded nicely to therapy. Electrolytes are being repleted by the primary service. For now, I would continue noninvasive support via the table top as she is doing well with it. We will need to try to get her set up prior to discharge; whether it is for a machine that she may qualify for under restrictive lung disease criteria or whether she will formally need a sleep study. My suspicion is the latter, as to get a device under current Medicare guidelines for restrictive disease one must clinically rule out MATTIE, and I believe she has significant underlying MATTIE. We will proceed as outlined above. Further recommendations will be made in the progress record as new information becomes available.
--- NOTE | 2020-11-07 12:35 | IPNPDOC ---
Text Note Date of Service The patient was seen on 11/07/20. NOTE Subjective: Patient continues improving, she uses tabletop BiPAP daily at [place], nasal cannula in the daytime Objective: GENERAL APPEARANCE: NAD HEENT: no scleral icterus, no JVD, EOMI, breathing via nasal cannula CARDIOVASCULAR: S1S2 LUNGS: Diminished lung sounds bilaterally ABDOMEN: soft & not tender w palpitation MUSCULOSKELETAL: no cyanosis, no swelling INTEGUMENT: +2 pitting edema NEUROLOGICAL: cranial nerve function from 2-12 intact intact, follows commands, speech not dysarthric Assessment and plan: PT is a 65 year old female with class 3 obesity and COPD who presents with acute hypoxic hypercapnic respiratory failure. Patient was intubated and successfully extubated on 11/03/20 Acute on chronic hypoxemic hypercapnic respiratory failure Most likely multifactorial. Secondary to CHF exacerbation, obesity hypoventilation syndrome, pulmonary edema Patient started antibiotic therapy with ceftriaxone and azithromycin due to fever on 11/01/20 date 3. I discussed with Dr Bosch discontinuation of antibiotics given negative blood culture, negative sputum culture, no leukocytosis procalcitonin 0.14 Continue tabletop BiPAP with intervals for supplemental oxygen Patient will need sleep study in the outpatient settings Pulmonary edema Most likely secondary to CHF exacerbation Slow improvement Patient developed good urine output, continue diuresis. Her weight decreased from 165 kilograms on 11/01/20 to 150 kg today Paroxysmal supraventricular tachycardia Most likely secondary to respiratory distress Continue Cardizem 240 mg by mouth Metabolic encephalopathy Resolved Hypertension Continue cardioprotective medications with parameters Obesity BMI 71.3 Complicating care and contributing to patient's respiratory failure Patient will need sleep study in the outpatient settings Diastolic CHF BNP was significantly elevated to over 3000 Is /Os Fluid restriction to 1500 cc Continue Lasix IV twice a day Type 2 diabetes Insulin sliding scale Diabetes diet [place] resolved VS,Fishbone, I+O VS, Fishbone, I+O Laboratory Tests 11/07/20 04:43 Vital Signs Date Time Temp Pulse Resp B/P (MAP) Pulse Ox O2 Delivery O2 Flow Rate FiO2 11/07/20 12:00 99.2 111 22 99/56 (70) 94 Nasal Cannula 3.0 11/05/20 04:00 50 I&O- Last 24 Hours up to 6 AM 11/07/20 06:00 Intake Total 890 ml Output Total 2270 ml Balance -1380 ml DROZHZHIN,AD DO Nov 07, 2020 12:35
[2020-11-08] VITALS (17 sets, daily range): BP systolic 102–131; BP diastolic 57–77; O2SAT 90–96
[2020-11-08] MEDS: SODIUM CHLORIDE 0.9% INJ 10 ML SYR IV SCH ×2 (05:40→17:07)
[2020-11-08 05:44] LABS: BASO % 0.5 % (0.0-1.0); EOS # 0.3 10^3/uL (0.0-0.5); EOS % 5.9 % (0.0-3.0); HEMATOCRIT 45.7 % (36.0-47.0); HEMOGLOBIN 13.1 g/dl (12.0-15.5); LYMPH % 17.8 % (24.0-44.0); MEAN CORPUSCULAR HEMOGLOBIN 24.3 pg (27.0-33.0); MEAN CORPUSCULAR HGB CONC 28.7 g/dl (32.0-36.5); MEAN CORPUSCULAR VOLUME 84.8 fl (80.0-96.0); MONO # 0.7 10^3/uL (0.0-0.8); NEUTROPHILS # 3.5 10^3/uL (1.5-8.5); NEUTROPHILS % 62.3 % (36.0-66.0); PLATELET COUNT, AUTOMATED 217 10^3/uL (150-450); RED BLOOD COUNT 5.39 10^6/uL (4.00-5.40); WHITE BLOOD COUNT 5.6 10^3/uL (4.0-10.0)
[2020-11-08 05:48] LABS: ABG STANDARD HCO3 36.5 MEQ/L (22.0-26.0)
[2020-11-08 05:50] LABS: ABG BASE EXCESS 12.7 (-2.0-2.0); ABG HCO3 40.3 MEQ/L (22.0-26.0); ABG PARTIAL PRESSURE O2 71.8 mmHg (75.0-100.0); ABG TOTAL CO2 42.3 MEQ/L (23.0-31.0); ABG pH (ARTERIAL) 7.412 UNITS (7.350-7.450)
[2020-11-08 05:52] LABS: ABG PARTIAL PRESSURE CO2 64.7 mmHg (35.0-45.0)
[2020-11-08 06:12] LABS: ALBUMIN 2.8 GM/DL (3.2-5.2); ALT/SGPT 42 U/L (12-78); BILIRUBIN,TOTAL 0.5 MG/DL (0.2-1.0); BLOOD UREA NITROGEN 25 MG/DL (7-18); CALCIUM LEVEL 9.1 MG/DL (8.8-10.2); CARBON DIOXIDE LEVEL 44 MEQ/L (21-32); CHLORIDE LEVEL 95 MEQ/L (98-107); CREATININE FOR GFR 0.98 MG/DL (0.55-1.30); GLOMERULAR FILTRATION RATE > 60.0 (>45); GLUCOSE, FASTING 84 MG/DL (70-100); MAGNESIUM LEVEL 2.1 MG/DL (1.8-2.4); SODIUM LEVEL 139 MEQ/L (136-145); TOTAL PROTEIN 6.8 GM/DL (6.4-8.2)
[2020-11-08] MEDS ORDERED: POTASSIUM CHLORIDE 10 MEQ SR TABLET PO ONE (06:40)
[2020-11-08] MEDS: HumaLOG INSULIN (NovoLOG) PER UNIT SC SCH (07:21)
--- NOTE | 2020-11-08 07:46 | REP ---
INDICATION: ett. COMPARISON: Portable chest dated 11/07/2020. TECHNIQUE: Portable AP chest with the patient upright. FINDINGS: The small volume of fluid noted peripherally in the minor fissure on the comparison study is no longer present. Lung thornton otherwise clear and unchanged. There is cardiomegaly, unchanged. The right subclavian central venous catheter is unchanged. IMPRESSION: The small volume of fluid peripherally in the minor fissure has resolved. There is no other interval change. <Electronically signed by Ben Roa > 11/08/20 0779
[2020-11-08] MEDS: FUROSEMIDE 40MG/4ML VIAL (J1940) IV SCH ×2 (08:32→17:07)
[2020-11-08] MEDS: POTASSIUM CHLORIDE 10 MEQ SR TABLET PO SCH (08:32)
[2020-11-08] MEDS: FAMOTIDINE 20 MG TAB PO SCH (08:32)
[2020-11-08] MEDS: ENOXAPARIN 40MG/0.4ML SYRINGE (J1650 PER 10MG) SC SCH (08:34)
[2020-11-08] MEDS: IPRATROPIUM 0.5MG/ALBUTEROL 2.5MG INH SOL UD 3ML (DUONEB) NEB SCH ×4 (08:40→20:48)
[2020-11-08] MEDS ORDERED: KCL 10MEQ/100ML SWI (KRUN) 10 MEQ in IV 1 EA IV ONE (09:30)
--- NOTE | 2020-11-08 11:03 | IPNPDOC ---
Text Note Date of Service The patient was seen on 11/08/20. NOTE Subjective: Patient had increased oxygen requirements overnight after 6 L, she continues to have intermittent cough with some clear whitish sputum Objective: GENERAL APPEARANCE: Morbidly obese female HEENT: no scleral icterus, no JVD, EOMI, breathing via nasal cannula CARDIOVASCULAR: S1S2 LUNGS: Diminished lung sounds bilaterally ABDOMEN: soft & not tender w palpitation MUSCULOSKELETAL: no cyanosis, no swelling INTEGUMENT: +2 pitting edema NEUROLOGICAL: cranial nerve function from 2-12 intact intact, follows commands, speech not dysarthric Assessment and plan: PT is a 65 year old female with class 3 obesity and COPD who presents with acute hypoxic hypercapnic respiratory failure. Patient was intubated and successfully extubated on 11/03/20 Acute on chronic hypoxemic hypercapnic respiratory failure Most likely multifactorial. Secondary to CHF exacerbation, obesity hypoventilation syndrome, pulmonary edema Patient started antibiotic therapy with ceftriaxone and azithromycin due to fever on 11/01/20 date 3. I discussed with Dr Bosch discontinuation of antibio tics given negative blood culture, negative sputum culture, no leukocytosis procalcitonin 0.14 Continue tabletop BiPAP with intervals for supplemental oxygen Patient will need sleep study in the outpatient settings On 11/08/20 x-ray showed The small volume of fluid peripherally in the minor fissure has resolved. There is no other interval change. We will check sputum culture and procalcitonin Pulmonary edema Most likely secondary to CHF exacerbation Slow improvement Patient developed good urine output, continue diuresis. Her weight decreased from 165 kilograms on 11/01/20 to 149.9 kg today Paroxysmal supraventricular tachycardia Most likely secondary to respiratory distress Continue Cardizem 240 mg by mouth Metabolic encephalopathy Resolved Hypertension Continue cardioprotective medications with parameters Obesity BMI 64.5 down from 71.3 Complicating care and contributing to patient's respiratory failure Patient will need sleep study in the outpatient settings Diastolic CHF BNP was significantly elevated to over 3000 Is /Os Fluid restriction to 1500 cc Continue Lasix IV twice a day Type 2 diabetes Insulin sliding scale Diabetes diet [place] resolved Hypokalemia Replaced VS,Fishbone, I+O VS, Fishbone, I+O Laboratory Tests 11/08/20 05:22 Vital Signs Date Time Temp Pulse Resp B/P (MAP) Pulse Ox O2 Delivery O2 Flow Rate FiO2 11/08/20 08:32 105 119/57 11/08/20 05:15 23 91 Nasal Cannula 3.0 11/08/20 04:00 98.4 11/05/20 04:00 50 I&O- Last 24 Hours up to 6 AM 11/08/20 06:00 Intake Total 1270 ml Output Total 1790 ml Balance -520 ml AD CABRERA DO Nov 08, 2020 11:03
[2020-11-09] VITALS (12 sets, daily range): BP systolic 95–134; BP diastolic 51–64; O2SAT 86–96
[2020-11-09] MEDS: SODIUM CHLORIDE 0.9% INJ 10 ML SYR IV SCH ×2 (05:13→18:01)
[2020-11-09 05:31] LABS: BASO % 0.3 % (0.0-1.0); EOS # 0.3 10^3/uL (0.0-0.5); EOS % 4.4 % (0.0-3.0); HEMATOCRIT 43.8 % (36.0-47.0); HEMOGLOBIN 12.8 g/dl (12.0-15.5); LYMPH # 1.1 10^3/uL (1.5-5.0); LYMPH % 18.4 % (24.0-44.0); MEAN CORPUSCULAR HEMOGLOBIN 24.5 pg (27.0-33.0); MEAN CORPUSCULAR HGB CONC 29.2 g/dl (32.0-36.5); MEAN CORPUSCULAR VOLUME 83.7 fl (80.0-96.0); MONO # 0.9 10^3/uL (0.0-0.8); MONO % 14.6 % (2.0-8.0); NEUTROPHILS # 3.6 10^3/uL (1.5-8.5); PLATELET COUNT, AUTOMATED 217 10^3/uL (150-450); RED BLOOD COUNT 5.23 10^6/uL (4.00-5.40); WHITE BLOOD COUNT 5.9 10^3/uL (4.0-10.0)
[2020-11-09 05:54] LABS: ALBUMIN 2.8 GM/DL (3.2-5.2); BILIRUBIN,TOTAL 0.6 MG/DL (0.2-1.0); CALCIUM LEVEL 8.5 MG/DL (8.8-10.2); CREATININE FOR GFR 1.03 MG/DL (0.55-1.30); GLOMERULAR FILTRATION RATE 57.4 (>45); MAGNESIUM LEVEL 2.1 MG/DL (1.8-2.4); POTASSIUM SERUM 3.1 MEQ/L (3.5-5.1); TOTAL PROTEIN 6.8 GM/DL (6.4-8.2)
[2020-11-09 05:59] LABS: ABG BASE EXCESS 10.8 (-2.0-2.0); ABG O2 SATURATION 94.5 % (95.0-99.0); ABG PARTIAL PRESSURE CO2 55.7 mmHg (35.0-45.0); ABG PARTIAL PRESSURE O2 72.5 mmHg (75.0-100.0); ABG STANDARD HCO3 34.5 MEQ/L (22.0-26.0); ABG TOTAL CO2 38.7 MEQ/L (23.0-31.0)
[2020-11-09] MEDS: IPRATROPIUM 0.5MG/ALBUTEROL 2.5MG INH SOL UD 3ML (DUONEB) NEB SCH ×4 (07:08→20:03)
--- NOTE | 2020-11-09 08:00 | REP ---
INDICATION: ett. COMPARISON: Portable chest dated 11/08/2020. TECHNIQUE: Portable AP chest with the patient upright. FINDINGS: Lung thorn[place] are clear. Cardiac size is enlarged, unchanged. The right subclavian central venous catheter is unchanged and remains in satisfactory position. There is chronic elevation the right hemidiaphragm, unchanged from 03/05/2016. IMPRESSION: Cardiomegaly, unchanged. Chronic elevation of the right hemidiaphragm, unchanged. Central venous catheter unchanged. Lung thornton remain clear. <Electronically signed by Ben Roa > 11/09/20 0754
[2020-11-09] MEDS ORDERED: KCL 10MEQ/100ML SWI (KRUN) 10 MEQ in IV 1 EA IV ONE (09:00)
[2020-11-09] MEDS: FUROSEMIDE 40MG/4ML VIAL (J1940) IV SCH (09:52)
[2020-11-09] MEDS: POTASSIUM CHLORIDE 10 MEQ SR TABLET PO SCH (09:53)
[2020-11-09] MEDS: FAMOTIDINE 20 MG TAB PO SCH (09:53)
[2020-11-09] MEDS: ENOXAPARIN 40MG/0.4ML SYRINGE (J1650 PER 10MG) SC SCH (09:53)
--- NOTE | 2020-11-09 10:42 | IPNPDOC ---
Text Note Date of Service The patient was seen on 11/09/20. NOTE Subjective: Patient stated that she feels better today, patient has less cough. Oxygen requirements 4 L via nasal cannula in the morning Objective: GENERAL APPEARANCE: Morbidly obese female HEENT: no scleral icterus, no JVD, EOMI, breathing via nasal cannula CARDIOVASCULAR: S1S2 LUNGS: Diminished lung sounds bilaterally ABDOMEN: soft & not tender w palpitation MUSCULOSKELETAL: no cyanosis, no swelling INTEGUMENT: +2 pitting edema NEUROLOGICAL: cranial nerve function from 2-12 intact intact, follows commands, speech not dysarthric Assessment and plan: PT is a 65 year old female with class 3 obesity and COPD who presents with acute hypoxic hypercapnic respiratory failure. Patient was intubated and successfully extubated on 11/03/20 Acute on chronic hypoxemic hypercapnic respiratory failure Most likely multifactorial. Secondary to CHF exacerbation, obesity hypove ntilation syndrome, pulmonary edema Patient started antibiotic therapy with ceftriaxone and azithromycin due to fever on 11/01/20 date 3. I discussed with Dr Bosch discontinuation of antibiotics given negative blood culture, negative sputum culture, no leukocytosis procalcitonin 0.14 Continue tabletop BiPAP with intervals for supplemental oxygen Patient will need sleep study in the outpatient settings On 11/08/20 x-ray showed The small volume of fluid peripherally in the minor fissure has resolved. There is no other interval change. Await repeated procalcitonin Pulmonary edema Most likely secondary to CHF exacerbation Slow improvement Patient developed good urine output, continue diuresis. Negative balance -925 mL for 24 hours Paroxysmal supraventricular tachycardia Most likely secondary to respiratory distress Continue Cardizem 240 mg by mouth Metabolic encephalopathy Resolved Hypertension Continue cardioprotective medications with parameters Obesity BMI 64.5 down from 71.3 Complicating care and contributing to patient's respiratory failure Patient will need sleep study in the outpatient settings Diastolic CHF BNP was significantly elevated to over 3000 Is /Os Fluid restriction to 1500 cc Continue Lasix IV twice a day Type 2 diabetes Insulin sliding scale Diabetes diet [place] resolved Hypokalemia Replaced VS,Fishbone, I+O VS, Fishbone, I+O Laboratory Tests 11/09/20 05:15 Vital Signs Date Time Temp Pulse Resp B/P (MAP) Pulse Ox O2 Delivery O2 Flow Rate FiO2 11/09/20 09:53 110/58 11/09/20 07:22 97.7 108 20 94 Nasal Cannula 4.0 3/31/21 04:00 50 I&O- Last 24 Hours up to 6 AM 11/09/20 06:00 Intake Total 1160 ml Output Total 2300 ml Balance -1140 ml AD CABRERA DO Nov 09, 2020 10:42
[2020-11-09] MEDS: metOLazone 5 MG TAB PO SCH (17:34)
[2020-11-09] MEDS: FUROSEMIDE 100MG/10ML VIAL (J1940) IV SCH (18:00)
[2020-11-10] VITALS (8 sets, daily range): BP systolic 111–128; BP diastolic 53–79; O2SAT 92–93
[2020-11-10] MEDS: SODIUM CHLORIDE 0.9% INJ 10 ML SYR IV SCH ×2 (05:18→17:36)
[2020-11-10 05:28] LABS: BASO % 0.5 % (0.0-1.0); EOS # 0.2 10^3/uL (0.0-0.5); HEMATOCRIT 46.1 % (36.0-47.0); HEMOGLOBIN 13.4 g/dl (12.0-15.5); LYMPH # 1.1 10^3/uL (1.5-5.0); LYMPH % 18.4 % (24.0-44.0); MEAN CORPUSCULAR HEMOGLOBIN 24.4 pg (27.0-33.0); MEAN CORPUSCULAR HGB CONC 29.1 g/dl (32.0-36.5); MONO % 16.6 % (2.0-8.0); NEUTROPHILS # 3.6 10^3/uL (1.5-8.5); PLATELET COUNT, AUTOMATED 226 10^3/uL (150-450); RED BLOOD COUNT 5.49 10^6/uL (4.00-5.40)
[2020-11-10 06:54] LABS: ALBUMIN 3.1 GM/DL (3.2-5.2); BILIRUBIN,TOTAL 0.7 MG/DL (0.2-1.0); CALCIUM LEVEL 8.6 MG/DL (8.8-10.2); CREATININE FOR GFR 1.04 MG/DL (0.55-1.30); GLOMERULAR FILTRATION RATE 56.8 (>45); MAGNESIUM LEVEL 2.2 MG/DL (1.8-2.4); POTASSIUM SERUM 2.9 MEQ/L (3.5-5.1); TOTAL PROTEIN 6.5 GM/DL (6.4-8.2)
[2020-11-10] MEDS ORDERED: POTASSIUM CHLORIDE 10 MEQ SR TABLET PO ONE ×2 (07:15→21:20)
[2020-11-10] MEDS ORDERED: KCL 10MEQ/100ML SWI (KRUN) 10 MEQ in IV 1 EA IV ONE (07:15)
[2020-11-10] MEDS: ENOXAPARIN 40MG/0.4ML SYRINGE (J1650 PER 10MG) SC SCH (08:24)
[2020-11-10] MEDS: POTASSIUM CHLORIDE 10 MEQ SR TABLET PO SCH (08:24)
[2020-11-10] MEDS: FAMOTIDINE 20 MG TAB PO SCH (08:25)
[2020-11-10] MEDS: FUROSEMIDE 100MG/10ML VIAL (J1940) IV SCH ×2 (08:25→17:35)
[2020-11-10] MEDS: KCL 10MEQ/100ML SWI (KRUN) 10 MEQ in IV 1 EA IV SCH ×2 (08:26→09:56)
[2020-11-10] MEDS: IPRATROPIUM 0.5MG/ALBUTEROL 2.5MG INH SOL UD 3ML (DUONEB) NEB SCH ×4 (09:50→20:12)
[2020-11-10] MEDS ORDERED: FLUCONAZOLE 100 MG TAB PO ONE (15:40)
[2020-11-10] MEDS: metOLazone 5 MG TAB PO SCH (17:01)
[2020-11-10] MEDS: NYSTATIN 100,000 UNITS/GM TOPICAL PWD 15 GM TOP SCH ×2 (17:02→20:24)
[2020-11-10] MEDS: SODIUM CHLORIDE 0.9% INJ 10 ML SYR IV PRN (20:49)
[2020-11-11] VITALS (8 sets, daily range): BP systolic 127–148; BP diastolic 80–90; O2SAT 89–94
[2020-11-11] MEDS: SODIUM CHLORIDE 0.9% INJ 10 ML SYR IV SCH ×2 (06:01→17:26)
[2020-11-11 06:32] LABS: BASO % 0.6 % (0.0-1.0); EOS # 0.3 10^3/uL (0.0-0.5); EOS % 3.8 % (0.0-3.0); HEMATOCRIT 45.6 % (36.0-47.0); HEMOGLOBIN 13.5 g/dl (12.0-15.5); LYMPH % 14.8 % (24.0-44.0); MEAN CORPUSCULAR HEMOGLOBIN 24.3 pg (27.0-33.0); MEAN CORPUSCULAR HGB CONC 29.6 g/dl (32.0-36.5); MONO # 0.9 10^3/uL (0.0-0.8); MONO % 14.3 % (2.0-8.0); NEUTROPHILS # 4.3 10^3/uL (1.5-8.5); NEUTROPHILS % 65.9 % (36.0-66.0); PLATELET COUNT, AUTOMATED 237 10^3/uL (150-450); RED BLOOD COUNT 5.56 10^6/uL (4.00-5.40); WHITE BLOOD COUNT 6.5 10^3/uL (4.0-10.0)
[2020-11-11 07:02] LABS: ALBUMIN 3.1 GM/DL (3.2-5.2); BILIRUBIN,TOTAL 0.8 MG/DL (0.2-1.0); CREATININE FOR GFR 1.3 MG/DL (0.55-1.30); GLOMERULAR FILTRATION RATE 43.9 (>45); MAGNESIUM LEVEL 2.1 MG/DL (1.8-2.4); POTASSIUM SERUM 2.9 MEQ/L (3.5-5.1); TOTAL PROTEIN 7.3 GM/DL (6.4-8.2)
[2020-11-11] MEDS ORDERED: POTASSIUM CHLORIDE 10 MEQ SR TABLET PO ONE ×2 (07:25→17:30)
[2020-11-11] MEDS: IPRATROPIUM 0.5MG/ALBUTEROL 2.5MG INH SOL UD 3ML (DUONEB) NEB SCH ×4 (07:29→20:00)
[2020-11-11] MEDS ORDERED: KCL 10MEQ/100ML SWI (KRUN) 10 MEQ in IV 1 EA IV ONE (08:00)
[2020-11-11] MEDS: ENOXAPARIN 40MG/0.4ML SYRINGE (J1650 PER 10MG) SC SCH (09:25)
[2020-11-11] MEDS: FAMOTIDINE 20 MG TAB PO SCH (09:27)
[2020-11-11] MEDS: NYSTATIN 100,000 UNITS/GM TOPICAL PWD 15 GM TOP SCH ×2 (09:28→19:55)
[2020-11-11] MEDS: SODIUM CHLORIDE 0.9% INJ 10 ML SYR IV PRN ×2 (09:29→23:56)
[2020-11-11] MEDS: FUROSEMIDE 100MG/10ML VIAL (J1940) IV SCH ×2 (09:30→17:25)
[2020-11-11] MEDS: POTASSIUM CHLORIDE 10 MEQ SR TABLET PO SCH (09:33)
[2020-11-11] MEDS: metOLazone 5 MG TAB PO SCH (16:29)
--- NOTE | 2020-11-11 17:32 | IPNPDOC ---
Text Note Date of Service The patient was seen on 11/11/20. NOTE Subjective: Patient doing better today, she stated that she has more energy. No fever or chills Objective: GENERAL APPEARANCE: Morbidly obese female HEENT: no scleral icterus, no JVD, EOMI, breathing via nasal cannula CARDIOVASCULAR: S1S2 LUNGS: Diminished lung sounds bilaterally ABDOMEN: soft & not tender w palpitation MUSCULOSKELETAL: no cyanosis, no swelling INTEGUMENT: +2 pitting edema NEUROLOGICAL: cranial nerve function from 2-12 intact intact, follows commands, speech not dysarthric Assessment and plan: PT is a 65 year old female with class 3 obesity and COPD who presents with acute hypoxic hypercapnic respiratory failure. Patient was intubated and successfully extubated on 11/03/20 Acute on chronic hypoxemic hypercapnic respiratory failure Most likely multifactorial. Secondary to CHF exacerbation, obesity hypoventilation syndrome, pulmonary edema Patient started antibiotic therapy with ceftriaxone and azithromycin due to fever on 11/01/20 date 3. I discussed with Dr Bosch discontinuation of antibiotics given negative blood culture, negative sputum culture, no leukocytosis procalcitonin 0.14 Continue tabletop BiPAP with intervals for supplemental oxygen Patient will need sleep study in the outpatient settings On 11/08/20 x-ray showed The small volume of fluid peripherally in the minor fissure has resolved. There is no other interval change. procalcitonin on 11/10/20 0.17. Negative balance for 24 hours 2.5 L Pulmonary edema Most likely secondary to CHF exacerbation Slow improvement Patient developed good urine output, continue diuresis. Will repeat x-ray today Paroxysmal supraventricular tachycardia Most likely secondary to respiratory distress Continue Cardizem 240 mg by mouth Metabolic encephalopathy Resolved Hypertension Continue cardioprotective medications with parameters Obesity BMI 65.6 down from 71.3 Complicating care and contributing to patient's respiratory failure Patient will need sleep study in the outpatient settings Diastolic CHF BNP was significantly elevated to over 3000 Is /Os Fluid restriction to 1500 cc Continue Lasix IV twice a day with metolazone Type 2 diabetes Insulin sliding scale Diabetes diet [place] Creatinine 1.3 today Continue to monitor Hypokalemia Replaced VS,Fishbone, I+O VS, Fishbone, I+O Laboratory Tests 11/10/20 20:25 11/11/20 00:15 11/11/20 06:03 11/11/20 11:50 Vital Signs Date Time Temp Pulse Resp B/P (MAP) Pulse Ox O2 Delivery O2 Flow Rate FiO2 11/11/20 14:00 98.7 101 20 142/80 (100) 93 Nasal Cannula 4.0 11/05/20 04:00 50 I&O- Last 24 Hours up to 6 AM 11/11/20 06:00 Intake Total 1520 ml Output Total 1925 ml Balance -405 ml AD CABRERA DO Nov 11, 2020 17:32
--- NOTE | 2020-11-11 18:43 | REP ---
INDICATION: pulmonary edema. COMPARISON: 11/09/2020. TECHNIQUE: SINGLE PORTABLE AP VIEW OF THE CHEST WAS PERFORMED. FINDINGS: There is to be mild bibasilar atelectatic change. There is mild elevation of the right hemidiaphragm unchanged. There is mild cardiomegaly. Mediastinal silhouette is unchanged. There is a right arm PICC line again noted with the tip in the superior vena cava. IMPRESSION: Mild bibasilar atelectatic change. <Electronically signed by Ben Estrada > 11/11/20 0833
[2020-11-12 02:20] LABS: POTASSIUM SERUM 2.9 MEQ/L (3.5-5.1)
[2020-11-12] MEDS ORDERED: POTASSIUM CHLORIDE 10 MEQ SR TABLET PO ONE ×3 (03:00→13:05)
[2020-11-12] MEDS ORDERED: MAG SULF 1GM/100ML (MAG RUN) 1 GM in IV 1 EA IV ONE (03:00)
[2020-11-12 03:20] LABS: MAGNESIUM LEVEL 1.8 MG/DL (1.8-2.4)
[2020-11-12] MEDS: SODIUM CHLORIDE 0.9% INJ 10 ML SYR IV SCH ×2 (04:54→17:40)
[2020-11-12 06:00] VITALS: BP 150/102
[2020-11-12] MEDS: IPRATROPIUM 0.5MG/ALBUTEROL 2.5MG INH SOL UD 3ML (DUONEB) NEB SCH ×4 (07:53→19:20)
[2020-11-12] MEDS ORDERED: KCL 10MEQ/100ML SWI (KRUN) 10 MEQ in IV 1 EA IV SCH (08:15)
[2020-11-12] MEDS: ENOXAPARIN 40MG/0.4ML SYRINGE (J1650 PER 10MG) SC SCH (08:32)
[2020-11-12] MEDS: POTASSIUM CHLORIDE 10 MEQ SR TABLET PO SCH (08:33)
[2020-11-12] MEDS: FAMOTIDINE 20 MG TAB PO SCH (08:34)
[2020-11-12] MEDS: FUROSEMIDE 100MG/10ML VIAL (J1940) IV SCH ×2 (08:38→17:39)
[2020-11-12] MEDS: NYSTATIN 100,000 UNITS/GM TOPICAL PWD 15 GM TOP SCH ×2 (08:39→21:17)
[2020-11-12 09:24] LABS: BASO # 0.1 10^3/uL (0.0-0.2); BASO % 0.8 % (0.0-1.0); EOS # 0.2 10^3/uL (0.0-0.5); EOS % 2.6 % (0.0-3.0); HEMATOCRIT 49.1 % (36.0-47.0); HEMOGLOBIN 14.4 g/dl (12.0-15.5); LYMPH # 0.7 10^3/uL (1.5-5.0); LYMPH % 10.2 % (24.0-44.0); MEAN CORPUSCULAR HEMOGLOBIN 24.4 pg (27.0-33.0); MEAN CORPUSCULAR HGB CONC 29.3 g/dl (32.0-36.5); MEAN CORPUSCULAR VOLUME 83.1 fl (80.0-96.0); MONO # 0.6 10^3/uL (0.0-0.8); MONO % 8.3 % (2.0-8.0); NEUTROPHILS # 5.6 10^3/uL (1.5-8.5); NEUTROPHILS % 77.5 % (36.0-66.0); PLATELET COUNT, AUTOMATED 237 10^3/uL (150-450); RED BLOOD COUNT 5.91 10^6/uL (4.00-5.40); WHITE BLOOD COUNT 7.2 10^3/uL (4.0-10.0)
[2020-11-12] MEDS ORDERED: ISOVUE-370 76% 100ML VIAL As Ordered ONE (09:37)
[2020-11-12 10:09] LABS: ALBUMIN 3.3 GM/DL (3.2-5.2); BILIRUBIN,TOTAL 0.9 MG/DL (0.2-1.0); CALCIUM LEVEL 9.3 MG/DL (8.8-10.2); CREATININE FOR GFR 1.56 MG/DL (0.55-1.30); GLOMERULAR FILTRATION RATE 35.6 (>45); MAGNESIUM LEVEL 2.3 MG/DL (1.8-2.4); POTASSIUM SERUM 3.2 MEQ/L (3.5-5.1); TOTAL PROTEIN 7.4 GM/DL (6.4-8.2)
--- NOTE | 2020-11-12 10:40 | REP ---
INDICATION: PE. COMPARISON: Chest CT with IV contrast dated 11/01/2020. TECHNIQUE: Chest CT with IV contrast, CT angiography. FINDINGS: There are no emboli in the pulmonary trunk or central pulmonary arteries. There are no emboli in the pulmonary artery lobar segment branches. The nodular density identified in the left upper lobe on the comparison study is no longer present, likely transient atelectasis. There is a new subsegmental infiltrate in the posterior basilar segment of the right lower lobe today, not present previously. There are no pleural effusions. The unenhanced thoracic aorta is unremarkable except for occasional calcified atheroma. The cardiac size is enlarged, unchanged. There is no pericardial effusion. The visualized upper abdominal contents are unremarkable. IMPRESSION: There are no pulmonary emboli. There is an infiltrate in the posterior basilar segment of the right lower lobe as an interval change. No pleural effusion. The right upper lobe lung nodule identified on the comparison study is no longer present, likely transient atelectasis. <Electronically signed by Ben Roa > 11/12/20 1032
[2020-11-12] MEDS ORDERED: KCL 10MEQ/100ML SWI (KRUN) 10 MEQ in IV 1 EA IV ONE (13:00)
[2020-11-12 14:00] VITALS: BP 149/89
--- NOTE | 2020-11-12 14:07 | IPNPDOC ---
Text Note Date of Service The patient was seen on 11/12/20. NOTE Subjective: Patient developed hypoxia on 5 L of oxygen with saturation of 85%. Patient denied any fever or chills. Objective: GENERAL APPEARANCE: Morbidly obese female HEENT: no scleral icterus, no JVD, EOMI, breathing via nasal cannula CARDIOVASCULAR: S1S2 LUNGS: Diminished lung sounds bilaterally ABDOMEN: soft & not tender w palpitation MUSCULOSKELETAL: no cyanosis, no swelling INTEGUMENT: +2 pitting edema NEUROLOGICAL: cranial nerve function from 2-12 intact intact, follows commands, speech not dysarthric Assessment and plan: PT is a 65 year old female with class 3 obesity and COPD who presents with acute hypoxic hypercapnic respiratory failure. Patient was intubated and successfully extubated on 11/03/20 Acute on chronic hypoxemic hypercapnic respiratory failure Most likely multifactorial. Secondary to CHF exacerbation, obesity hypoventilation syndrome, pulmonary edema Patient started antibiotic therapy with ceftriaxone and azithromycin due to fever on 11/01/20 date 3. I discussed with Dr Bosch discontinuation of antibiotics given negative blood culture, negative sputum culture, no leukocytosis procalcitonin 0.14 Continue tabletop BiPAP with intervals for supplemental oxygen Patient will need sleep study in the outpatient settings On 11/08/20 x-ray showed The small volume of fluid peripherally in the minor fissure has resolved. There is no other interval change. procalcitonin on 11/10/20 0.17. Negative balance for 24 hours 2.5 L Due to increased oxygen requirements and tachycardia CTA was done on 11/12/20 and showed no pulmonary emboli. There is an infiltrate in the posterior basilar segment of the right lower lobe as an interval change.No pleural effusion. The right upper lobe lung nodule identified on the comparison study is no longer present, likely transient atelectasis Pulmonary edema Most likely secondary to CHF exacerbation Patient developed good urine output, continue diuresis. Improved Paroxysmal supraventricular tachycardia Most likely secondary to respiratory distress Continue Cardizem 240 mg by mouth Metabolic encephalopathy Resolved Hypertension Continue cardioprotective medications with parameters Obesity BMI 65.6 down from 71.3 Complicating care and contributing to patient's respiratory failure Patient will need sleep study in the outpatient settings Diastolic CHF BNP was significantly elevated to over 3000 Is /Os Fluid restriction to 1500 cc BNP on 11/11/20 is 374 Continue Lasix IV twice a day with metolazone Type 2 diabetes Insulin sliding scale Diabetes diet [place] Worsening today 1.5 metolazone on hold, I will reduce the dose of Lasix Continue to monitor Hypokalemia Replaced VS,[place], I+O VS, [place], I+O Laboratory Tests 11/11/20 18:10 11/12/20 00:15 11/12/20 09:04 Vital Signs Date Time Temp Pulse Resp B/P (MAP) Pulse Ox O2 Delivery O2 Flow Rate FiO2 11/12/20 08:33 108 150/90 11/12/20 06:00 97.9 20 90 Nasal Cannula 4.0 I&O- Last 24 Hours up to 6 AM 11/12/20 05:59 Intake Total 1790 ml Output Total 2750 ml Balance -960 ml AD CABRERA DO Nov 12, 2020 14:07
[2020-11-12 19:20] VITALS: O2SAT 92
[2020-11-12 22:21] VITALS: BP 130/63
[2020-11-13 05:00] VITALS: BP 134/76
[2020-11-13] MEDS: SODIUM CHLORIDE 0.9% INJ 10 ML SYR IV SCH (05:38)
[2020-11-13] MEDS: SODIUM CHLORIDE 0.9% INJ 10 ML SYR IV PRN (05:39)
[2020-11-13 06:00] VITALS: BP 141/77
[2020-11-13] MEDS: IPRATROPIUM 0.5MG/ALBUTEROL 2.5MG INH SOL UD 3ML (DUONEB) NEB SCH ×4 (07:04→20:43)
[2020-11-13] MEDS ORDERED: KCL 10MEQ/100ML SWI (KRUN) 10 MEQ in IV 1 EA IV ONE (08:00)
[2020-11-13] MEDS ORDERED: POTASSIUM CHLORIDE 10 MEQ SR TABLET PO ONE (08:00)
[2020-11-13 08:03] LABS: BASO # 0.1 10^3/uL (0.0-0.2); EOS # 0.1 10^3/uL (0.0-0.5); EOS % 1.6 % (0.0-3.0); HEMATOCRIT 46.2 % (36.0-47.0); HEMOGLOBIN 13.9 g/dl (12.0-15.5); LYMPH # 0.7 10^3/uL (1.5-5.0); MEAN CORPUSCULAR HEMOGLOBIN 24.8 pg (27.0-33.0); MEAN CORPUSCULAR HGB CONC 30.1 g/dl (32.0-36.5); MEAN CORPUSCULAR VOLUME 82.5 fl (80.0-96.0); MONO # 0.7 10^3/uL (0.0-0.8); MONO % 11.5 % (2.0-8.0); NEUTROPHILS # 4.6 10^3/uL (1.5-8.5); NEUTROPHILS % 74.3 % (36.0-66.0); PLATELET COUNT, AUTOMATED 244 10^3/uL (150-450); WHITE BLOOD COUNT 6.3 10^3/uL (4.0-10.0)
[2020-11-13] MEDS: FAMOTIDINE 20 MG TAB PO SCH (08:07)
[2020-11-13] MEDS: ENOXAPARIN 40MG/0.4ML SYRINGE (J1650 PER 10MG) SC SCH (08:09)
[2020-11-13] MEDS: FUROSEMIDE 100MG/10ML VIAL (J1940) IV SCH (08:09)
[2020-11-13 08:32] LABS: ALBUMIN 3.2 GM/DL (3.2-5.2); BILIRUBIN,TOTAL 0.7 MG/DL (0.2-1.0); CALCIUM LEVEL 9.4 MG/DL (8.8-10.2); CREATININE FOR GFR 1.57 MG/DL (0.55-1.30); GLOMERULAR FILTRATION RATE 35.3 (>45); MAGNESIUM LEVEL 2.3 MG/DL (1.8-2.4); POTASSIUM SERUM 3.2 MEQ/L (3.5-5.1); TOTAL PROTEIN 7.2 GM/DL (6.4-8.2)
--- NOTE | 2020-11-13 10:25 | IPN ---
PROGRESS NOTE DATE: 11/13/2020 SUBJECTIVE: I saw Elizabeth Freitas here. She is anticipating discharge in the next 24-48 hours. She has shown improvement with the use of noninvasive support at night consistent with her suspected sleep apnea. She also has significant obesity hypoventilation syndrome but is well oxygenated on 4 liters of nasal cannula during the day. Her most recent blood gas done on 11/09/2020 at 0545 hours on 4 liters shows a pH of 7.440, pCO2 of 55.7, and a PO2 of 72.5. Saturation 94.5% I discussed with her the therapy for sleep apnea and what is involved in its workup. Her [place] is 10 and her neck circumference is 18 inches. OBJECTIVE: Vital signs show a T-max of 99.8, blood pressure 131/40, heart rate generally in the 90s, respiratory rate in the teens without accessory muscle use. White blood cell count 6.3, hemoglobin 13.9, platelet count of 244,000, 74% segs, no bands. Sodium 134, potassium 3.2, chloride 88, CO2 38, BUN 33, creatinine 1.57. On exam she is awake, alert and appropriate. HEENT: Pupils react. Sclerae clear. Trachea is in the midline. Mucous membranes ___ mouth are moist. Airway is class III to IV. Chest shows diminished but symmetric expansion, faint crackles at the bases that improve with deep inspiration. No other focal adventitious breath sounds are identified. Cardiac exam is distant but regular. Peripheral pulses palpable. At least 1 to 2+ edema of the lower extremities, unchanged. Abdomen is morbidly obese, soft with active bowel sounds. Organomegaly and masses difficult to ascertain in view of her body habitus. Extremities without cyanosis or clubbing. Neurologically she is awake, alert, and appropriate. Psychiatric: She has a normal mood and affect. IMPRESSION: 1. Obesity hypoventilation syndrome. 2. Suspect significant restrictive ventilatory impairment on the basis of body habitus. 3. Suspect significant underlying obstructive sleep apnea. 4. Chronic hypoxemic and hypercapnic respiratory failure still oxygen requiring. RECOMMENDATIONS: At this point I am agreeing with her discharge planning. We will attempt to get her a spot in the sleep lab as soon as possible as she clearly needs continued therapy for her sleep apnea. At the very minimum if not, certainly continued support in view of her restrictive ventilatory impairment is prudent. Clearly she will go home on oxygen. She will need to follow up with Dr. Bosch in the office and we will make those arrangements after her appointment in the Sleep Lab. Further recommendations will be made in the progress records as new information becomes available.
[2020-11-13] MEDS ORDERED: KLOR10TA76 PO (10:50)
[2020-11-13] MEDS ORDERED: PROAAER10 INH (10:50)
[2020-11-13] MEDS ORDERED: ACET1TAB37 PO (10:50)
[2020-11-13] MEDS ORDERED: SORE15LO PO (10:50)
[2020-11-13] MEDS ORDERED: TORS10TA3 PO (10:50)
[2020-11-13] MEDS ORDERED: IPRAINH INH (10:50)
[2020-11-13] MEDS: POTASSIUM CHLORIDE 10 MEQ SR TABLET PO SCH (11:01)
[2020-11-13] MEDS: NYSTATIN 100,000 UNITS/GM TOPICAL PWD 15 GM TOP SCH ×2 (11:02→21:44)
[2020-11-13 14:00] VITALS: BP 145/84
[2020-11-13] MEDS ORDERED: TORSEMIDE 10 MG TABLET PO ONE (16:10)
--- NOTE | 2020-11-13 16:47 | DS.PDOC ---
Discharge Summary General Date of Admission Nov 01, 2020 at 03:42 Date of Discharge 11/15/20 Discharge Summary PROCEDURES PERFORMED DURING STAY: [None]. ADMITTING DIAGNOSES: Acute on chronic hypoxemic hypercapnic respiratory failure Pulmonary edema Paroxysmal supraventricular tachycardia Metabolic encephalopathy Hypertension Obesity Type 2 diabetes Diastolic CHF [place] Hypokalemia Obesity hypoventilation syndrome DISCHARGE DIAGNOSES: Acute on chronic hypoxemic hypercapnic respiratory failure Pulmonary edema Paroxysmal supraventricular tachycardia Metabolic encephalopathy Hypertension Obesity Type 2 diabetes Diastolic CHF [place] Hypokalemia Obesity hypoventilation syndrome COMPLICATIONS/CHIEF COMPLAINT: Respiratory Failure. HISTORY OF PRESENT ILLNESS: This 65 yr old F has been house bound most of the winter; according to her son she tends to avoid hospitals and seeing doctors. She doesnt have a sleep machine but for years she has been lethargic and snoring when she falls asleep. Over the last 2 days she has been sleeping more. Yesterday while siting on the toilet she had facial numbness and had difficulties standing up; when EMS arrived she had been sitting on the toilet for 6H and while they were transporting her her O2 sats dropped to 85% so she was put on non-rebreather. HOSPITAL COURSE: During hospital stay following issues addressed Acute on chronic hypoxemic hypercapnic respiratory failure Most likely multifactorial, most likely secondary to obesity hypoventilation syndrome superimposed with acute CHF Patient received tabletop BiPAP with intervals for supplemental oxygen Patient will need sleep study in the outpatient settings On 11/08/20 x-ray showed The small volume of fluid peripherally in the minor fissure has resolved. There is no other interval change. procalcitonin on 11/10/20 0.17. Negative balance for 24 hours 2.5 L CTA was done on 11/12/20 and showed no pulmonary emboli. There is an infiltrate in the posterior basilar segment of the right lower lobe as an interval change.No pleural effusion. The right upper lobe lung nodule identified on the comparison study is no longer present, likely transient atelectasis She will need to follow up with Dr. Bosch in the office and pulmonary team will make those arrangements after her appointment in the Sleep Lab. Further recommendations will be made in the progress records as new information becomes available Pulmonary edema Most likely secondary to CHF exacerbation Patient developed good urine output, continue diuresis. Improved Paroxysmal supraventricular tachycardia Most likely secondary to respiratory distress Patient received treatment with Cardizem 240 mg by mouth Metabolic encephalopathy Resolved Hypertension Continue cardioprotective medications with parameters Obesity BMI 65.6 down from 71.3 Complicating care and contributing to patient's respiratory failure Patient will need sleep study in the outpatient settings Diastolic CHF BNP was significantly elevated to over 3000 Is /Os Fluid restriction to 1500 cc BNP on 11/11/20 is 374 Patient received treatment with Lasix IV twice a day with metolazone Type 2 diabetes Insulin sliding scale Diabetes diet [place] The dose of diuretics were adjusted Hypokalemia Replaced DISCHARGE MEDICATIONS: Please see below. ALLERGIES: Please see below. PHYSICAL EXAMINATION ON DISCHARGE: VITAL SIGNS: Please see below. Objective: GENERAL APPEARANCE: Morbidly obese female HEENT: no scleral icterus, no JVD, EOMI, breathing via nasal cannula CARDIOVASCULAR: S1S2 LUNGS: Diminished lung sounds bilaterally ABDOMEN: soft & not tender w palpitation MUSCULOSKELETAL: no cyanosis, no swelling INTEGUMENT: +2 pitting edema NEUROLOGICAL: cranial nerve function from 2-12 intact intact, follows commands, speech not dysarthric LABORATORY DATA: Please see below. IMAGING: See above PROGNOSIS: Fair ACTIVITY: [As tolerated]. DIET: Cardiac DISPOSITION: Home with home health DISCHARGE INSTRUCTIONS: Sleep study in the outpatient settings, continue oxygen 24 hours 7 days a week ITEMS TO FOLLOWUP ON ON OUTPATIENT: Follow-up with government auditor in 3-5 days, follow up with primary care and configuration management architect in 1 week DISCHARGE CONDITION: [Stable]. TIME SPENT ON DISCHARGE: 50minutes. Vital Signs/I&Os Vital Signs Date Time Temp Pulse Resp B/P (MAP) Pulse Ox O2 Delivery O2 Flow Rate FiO2 11/13/20 14:00 98.2 103 20 145/84 (104) 95 Nasal Cannula 4.0 11/12/20 19:20 40 I&O- Last 24 Hours up to 6 AM 11/13/20 06:00 Intake Total 2080 ml Output Total 2200 ml Balance -120 ml Laboratory Data Labs 24H Laboratory Tests 2 11/13/20 07:45: Immature Granulocyte % (Auto) 0.6, Neutrophils (%) (Auto) 74.3H, Lymphocytes (%) (Auto) 11.0L, Monocytes (%) (Auto) 11.5H, Eosinophils (%) (Auto) 1.6, Basophils (%) (Auto) 1.0, Neutrophils # (Auto) 4.6, Lymphocytes # (Auto) 0.7L, Monocytes # (Auto) 0.7, Eosinophils # (Auto) 0.1, Basophils # (Auto) 0.1, Nucleated Red Blood Cells % (auto) 0.0, Anion Gap 8, Glomerular Filtration Rate 35.3L, Calcium Level 9.4, Magnesium Level 2.3, Total Bilirubin 0.7, Aspartate Amino Transf (AST/SGOT) 34, Alanine Aminotransferase (ALT/SGPT) 52, Alkaline Phosphatase 64, Total Protein 7.2, Albumin 3.2, Albumin/Globulin Ratio 0.8L CBC/BMP Laboratory Tests 11/13/20 07:45 Microbiology Microbiology 11/08/20 Gram Stain - Final, Complete 11/08/20 Sputum Culture - Final, Complete Discharge Medications Scheduled Diltiazem Hcl (Diltiazem 24Hr ER) 240 Mg Cap.sa.24h, 240 MG PO DAILY, (Reported) Famotidine (Famotidine) 10 Mg Tablet, 10 MG PO DAILY, (Reported) Guaifenesin (Mucinex) 600 Mg Tab.er.12h, 600 MG PO PRN, (Reported) Ipratropium [place] (Atrovent Hfa) 12.9 Gm Hfa.aer.ad, 2 PUFF INH QID Lisinopril (Lisinopril) 10 Mg Tablet, 10 MG PO DAILY, (Reported) Magnesium Oxide (Magnesium Oxide) 250 Mg Tablet, 1 TAB PO DAILY Medroxyprogesterone Acetate (Medroxyprogesterone Acetate) 10 Mg Tablet, 10 MG PO DAILY, (Reported) Potassium Chloride (Klor-Con M10) 10 Meq Tab.er.prt, 40 MEQ PO DAILY Pravastatin Sodium (Pravastatin Sodium) 10 Mg Tablet, 10 MG PO DAILY, (Reported) Torsemide (Torsemide) 5 Mg Tablet, 1 TAB PO DAILY Scheduled PRN Acetaminophen (Acetaminophen ER) 650 Mg Tablet.er, 1 TAB PO TID PRN for PAIN OR FEVER Albuterol Sulfate (Proair Hfa) 8.5 Gm Hfa.aer.ad, 2 PUFF INH Q4-6HP PRN for wheezing Benzocaine/Menthol (Sore Throat Lozenge) 1 Each Lozenge, 1 TAMRA PO Q6HP PRN for SORE THROAT Miscellaneous Medications [med rec comment] , (Reported) unable to verify with patient, but states she hasnt taken any meds in days Allergies Coded Allergies: latex (Verified Allergy, Intermediate, rash, 01/18/20) Penicillins (Verified Adverse Reaction, Mild, GI UPSET, 01/18/20) clavulanic acid (Verified Adverse Reaction, Mild, GI UPSET, 01/18/20) codeine (Verified Adverse Reaction, Mild, GI UPSET, 01/18/20) AD CABRERA DO Nov 13, 2020 16:46
[2020-11-13 20:08] VITALS: BP 161/72
[2020-11-13 20:43] VITALS: O2SAT 92
[2020-11-14 07:04] LABS: BASO # 0.1 10^3/uL (0.0-0.2); BASO % 0.9 % (0.0-1.0); EOS # 0.2 10^3/uL (0.0-0.5); EOS % 2.7 % (0.0-3.0); HEMATOCRIT 43.2 % (36.0-47.0); HEMOGLOBIN 12.7 g/dl (12.0-15.5); LYMPH # 0.8 10^3/uL (1.5-5.0); LYMPH % 14.4 % (24.0-44.0); MEAN CORPUSCULAR HEMOGLOBIN 24.1 pg (27.0-33.0); MEAN CORPUSCULAR HGB CONC 29.4 g/dl (32.0-36.5); MONO # 0.8 10^3/uL (0.0-0.8); MONO % 14.1 % (2.0-8.0); NEUTROPHILS # 3.7 10^3/uL (1.5-8.5); NEUTROPHILS % 67.4 % (36.0-66.0); PLATELET COUNT, AUTOMATED 234 10^3/uL (150-450); RED BLOOD COUNT 5.27 10^6/uL (4.00-5.40); WHITE BLOOD COUNT 5.5 10^3/uL (4.0-10.0)
[2020-11-14] MEDS: IPRATROPIUM 0.5MG/ALBUTEROL 2.5MG INH SOL UD 3ML (DUONEB) NEB SCH ×4 (07:07→20:45)
[2020-11-14 07:39] LABS: ALBUMIN 2.9 GM/DL (3.2-5.2); BILIRUBIN,TOTAL 0.6 MG/DL (0.2-1.0); CALCIUM LEVEL 8.8 MG/DL (8.8-10.2); CREATININE FOR GFR 1.39 MG/DL (0.55-1.30); GLOMERULAR FILTRATION RATE 40.6 (>45); MAGNESIUM LEVEL 2.1 MG/DL (1.8-2.4); POTASSIUM SERUM 2.5 MEQ/L (3.5-5.1); TOTAL PROTEIN 6.8 GM/DL (6.4-8.2)
[2020-11-14] MEDS ORDERED: KCL 10MEQ/100ML SWI (KRUN) 10 MEQ in IV 1 EA IV ONE ×2 (08:00→11:00)
[2020-11-14] MEDS ORDERED: POTASSIUM CHLORIDE 10 MEQ SR TABLET PO ONE ×5 (08:00→17:25)
[2020-11-14] MEDS: FAMOTIDINE 20 MG TAB PO SCH (08:53)
[2020-11-14] MEDS: ENOXAPARIN 40MG/0.4ML SYRINGE (J1650 PER 10MG) SC SCH (08:54)
[2020-11-14] MEDS: NYSTATIN 100,000 UNITS/GM TOPICAL PWD 15 GM TOP SCH ×2 (08:55→20:13)
[2020-11-14] MEDS ORDERED: TORSEMIDE 10 MG TABLET PO SCH (09:00)
[2020-11-14] MEDS: POTASSIUM CHLORIDE 10 MEQ SR TABLET PO SCH (09:37)
[2020-11-14 10:17] LABS: CALCIUM LEVEL 8.8 MG/DL (8.8-10.2); CREATININE FOR GFR 1.43 MG/DL (0.55-1.30); GLOMERULAR FILTRATION RATE 39.3 (>45); POTASSIUM SERUM 2.9 MEQ/L (3.5-5.1)
[2020-11-14] MEDS ORDERED: MAGN250T9 PO (11:04)
[2020-11-14] MEDS ORDERED: MAGNESIUM GLUCONATE 500 MG TAB PO ONE (12:00)
[2020-11-14] MEDS ORDERED: MAG SULF 1GM/100ML (MAG RUN) 1 GM in IV 1 EA IV ONE (12:00)
[2020-11-14 14:04] VITALS: BP 133/74
[2020-11-14 15:32] LABS: CALCIUM LEVEL 9.3 MG/DL (8.8-10.2); CREATININE FOR GFR 1.5 MG/DL (0.55-1.30); GLOMERULAR FILTRATION RATE 37.2 (>45); POTASSIUM SERUM 3.2 MEQ/L (3.5-5.1)
[2020-11-14] MEDS: metOLazone 5 MG TAB PO SCH (17:20)
--- NOTE | 2020-11-14 17:28 | IPNPDOC ---
Text Note Date of Service The patient was seen on 11/14/20. NOTE Subjective: Patient was discharged today but her potassium level was 2. 5 in the morning Objective: GENERAL APPEARANCE: Morbidly obese female HEENT: no scleral icterus, no JVD, EOMI, breathing via nasal cannula CARDIOVASCULAR: S1S2 LUNGS: Diminished lung sounds bilaterally ABDOMEN: soft & not tender w palpitation MUSCULOSKELETAL: no cyanosis, no swelling INTEGUMENT: +2 pitting edema NEUROLOGICAL: cranial nerve function from 2-12 intact intact, follows commands, speech not dysarthric Assessment and plan: PT is a 65 year old female with class 3 obesity and COPD who presents with acute hypoxic hypercapnic respiratory failure. Patient was intubated and successfully extubated on 11/03/20 Acute on chronic hypoxemic hypercapnic respiratory failure Most likely multifactorial. Secondary to CHF exacerbation, obesity hypoventilation syndrome, pulmonary edema Patient started antibiotic therapy with ceftriaxone and azithromycin due to fever on 11/01/20 date 3. I discussed with Dr Bosch discontinuation of antibiotics given negative blood culture, negative sputum culture, no leukocytosis procalcitonin 0.14 Continue tabletop BiPAP with intervals for supplemental oxygen Patient will need sleep study in the outpatient settings On 11/08/20 x-ray showed The small volume of fluid peripherally in the minor fissure has resolved. There is no other interval change. procalcitonin on 11/10/20 0.17. Negative balance for 24 hours 2.5 L Due to increased oxygen requirements and tachycardia CTA was done on 11/12/20 and showed no pulmonary emboli. There is an infiltrate in the posterior basilar segment of the right lower lobe as an interval change.No pleural effusion. The right upper lobe lung nodule identified on the comparison study is no longer present, likely transient atelectasis Pulmonary edema Most likely secondary to CHF exacerbation Patient developed good urine output, continue diuresis. Improved Paroxysmal supraventricular tachycardia Most likely secondary to respiratory distress Continue Cardizem 240 mg by mouth Metabolic encephalopathy Resolved Hypertension Continue cardioprotective medications with parameters Obesity BMI 65.6 down from 71.3 Complicating care and contributing to patient's respiratory failure Patient will need sleep study in the outpatient settings Diastolic CHF BNP was significantly elevated to over 3000 Is /Os Fluid restriction to 1500 cc BNP on 11/11/20 is 374 Patient received treatment with Lasix IV twice a day with metolazone Type 2 diabetes Insulin sliding scale Diabetes diet [place] Slightly improved today Diuretics on hold Continue to monitor Hypokalemia Potassium level 2.5 the morning most likely secondary to diuresis Continue potassium replacement Potassium level every 4 hours Diuretics on hold VS,Fishbone, I+O VS, Fishbone, I+O Laboratory Tests 11/14/20 05:36 11/14/20 09:09 11/14/20 11:45 11/14/20 15:03 Vital Signs Date Time Temp Pulse Resp B/P (MAP) Pulse Ox O2 Delivery O2 Flow Rate FiO2 11/14/20 14:04 97.7 90 16 133/74 (93) 90 Nasal Cannula 2.0 11/13/20 20:43 40 I&O- Last 24 Hours up to 6 AM 11/14/20 05:59 Intake Total 970 ml Balance 970 ml AD CABRERA Nov 14, 2020 17:28
[2020-11-14 19:43] LABS: CREATININE FOR GFR 1.56 MG/DL (0.55-1.30); GLOMERULAR FILTRATION RATE 35.6 (>45)
[2020-11-14 20:10] VITALS: BP 135/76
[2020-11-14] MEDS: NEUTRA-PHOS 1.5 GM PACKET PO SCH (20:13)
[2020-11-14 20:46] VITALS: O2SAT 92
[2020-11-15 04:01] LABS: CALCIUM LEVEL 8.6 MG/DL (8.8-10.2); CREATININE FOR GFR 1.29 MG/DL (0.55-1.30); GLOMERULAR FILTRATION RATE 44.3 (>45); POTASSIUM SERUM 2.8 MEQ/L (3.5-5.1)
[2020-11-15] MEDS ORDERED: POTASSIUM CHLORIDE 10 MEQ SR TABLET PO ONE ×3 (04:25→10:00)
[2020-11-15 04:36] LABS: MAGNESIUM LEVEL 2.1 MG/DL (1.8-2.4)
[2020-11-15 05:46] VITALS: BP 132/82
[2020-11-15 07:22] LABS: HEMOGLOBIN 13.1 g/dl (12.0-15.5); MEAN CORPUSCULAR HEMOGLOBIN 24.8 pg (27.0-33.0); MEAN CORPUSCULAR HGB CONC 29.8 g/dl (32.0-36.5); MEAN CORPUSCULAR VOLUME 83.2 fl (80.0-96.0); PLATELET COUNT, AUTOMATED 246 10^3/uL (150-450); RED BLOOD COUNT 5.29 10^6/uL (4.00-5.40); WHITE BLOOD COUNT 4.3 10^3/uL (4.0-10.0)
[2020-11-15 07:49] LABS: CALCIUM LEVEL 8.7 MG/DL (8.8-10.2); CREATININE FOR GFR 1.27 MG/DL (0.55-1.30); GLOMERULAR FILTRATION RATE 45.1 (>45); POTASSIUM SERUM 3.4 MEQ/L (3.5-5.1)
[2020-11-15] MEDS: IPRATROPIUM 0.5MG/ALBUTEROL 2.5MG INH SOL UD 3ML (DUONEB) NEB SCH ×2 (07:58→11:50)
[2020-11-15 08:47] VITALS: BP 132/82
[2020-11-15] MEDS: FAMOTIDINE 20 MG TAB PO SCH (08:47)
[2020-11-15] MEDS: ENOXAPARIN 40MG/0.4ML SYRINGE (J1650 PER 10MG) SC SCH (08:49)
[2020-11-15] MEDS: NEUTRA-PHOS 1.5 GM PACKET PO SCH (08:49)
[2020-11-15] MEDS: NYSTATIN 100,000 UNITS/GM TOPICAL PWD 15 GM TOP SCH (08:51)
[2020-11-15] MEDS: POTASSIUM CHLORIDE 10 MEQ SR TABLET PO SCH (09:52)
[2020-11-15] MEDS ORDERED: TORS5TAB2 PO (11:16)
== END 2020-11-15 13:21 | disposition home or self-care (01) | DRG 208 ==
LOC: M ED 23:00 → M ED INP 11-01 03:42 → ENRESERV 11-01 04:10 → M ICU 11-01 05:28 → M PCU 11-08 11:16 → M MS5PR 11-10 12:30
PROVIDERS: ADMIT Internal Medicine; ATTEND Internal Medicine
PROC: 5A1945Z Respiratory Ventilation, 24-96 Consecutive Hours (ICD-10-PCS; 2020-11-02)
PROC: 02HV33Z Insertion of Infusion Device into Superior Vena Cava, Percutaneous Approach (ICD-10-PCS; principal; 2020-11-04 11:55)
DX: J96.21 Acute and chronic respiratory failure with hypoxia (principal); G93.41 Metabolic encephalopathy; I50.31 Acute diastolic (congestive) heart failure; N17.9 Acute kidney failure, unspecified; E66.2 Morbid (severe) obesity with alveolar hypoventilation; I47.1 Supraventricular tachycardia; Z68.44 Body mass index [BMI] 60.0-69.9, adult; J96.22 Acute and chronic respiratory failure with hypercapnia; E11.9 Type 2 diabetes mellitus without complications; I11.0 Hypertensive heart disease with heart failure; E87.6 Hypokalemia; Z79.899 Other long term (current) drug therapy; Z88.0 Allergy status to penicillin; Z91.040 Latex allergy status; Z88.5 Allergy status to narcotic agent; Z88.8 Allergy status to other drugs, medicaments and biological substances; Z87.891 Personal history of nicotine dependence; G47.33 Obstructive sleep apnea (adult) (pediatric)

== ENCOUNTER 2020-11-18 19:10 | Inpatient (IN) | payer OTHER ==
[~2020-11-18] VITALS: Ht 147.3 cm; Wt 151.6 kg
[~2020-11-18 19:10] MED LIST changes: +ACET1TAB37 PO; +IPRAINH INH; +KLOR10TA76 PO; +MAGN250T9 PO; +MEDR10TA PO; +PROAAER10 INH; +SORE15LO PO; +TORS10TA3 PO; +TORS5TAB2 PO; +med rec comment
[2020-11-18 20:16] LABS: HEMATOCRIT 44.6 % (36.0-47.0); HEMOGLOBIN 13.5 g/dl (12.0-15.5); MEAN CORPUSCULAR HEMOGLOBIN 24.7 pg (27.0-33.0); MEAN CORPUSCULAR HGB CONC 30.3 g/dl (32.0-36.5); MEAN CORPUSCULAR VOLUME 81.5 fl (80.0-96.0); PLATELET COUNT, AUTOMATED 355 10^3/uL (150-450); RED BLOOD COUNT 5.47 10^6/uL (4.00-5.40); WHITE BLOOD COUNT 5.8 10^3/uL (4.0-10.0)
[2020-11-18 20:23] LABS: CALCIUM LEVEL 8.5 MG/DL (8.8-10.2); CREATININE FOR GFR 3.33 MG/DL (0.55-1.30); GLOMERULAR FILTRATION RATE 14.8 (>45); POTASSIUM SERUM 4.8 MEQ/L (3.5-5.1)
[2020-11-18] MEDS ORDERED: NS 500 ML IV ONE (20:35)
--- NOTE | 2020-11-18 21:09 | REPVR ---
PROCEDURE INFORMATION: Exam: XR Chest Exam date and time: 11/18/2020 8:45 PM Age: 65 years old Clinical indication: Other: Arf TECHNIQUE: Imaging protocol: XR of the chest. Views: 1 view. COMPARISON: IN PORTABLE CHEST X-RAY 11/11/2020 6:13 PM FINDINGS: Lungs: Unremarkable. No consolidation. Pleural spaces: Unremarkable. No pleural effusion. No pneumothorax. Heart/Mediastinum: Unremarkable. No cardiomegaly. Bones/joints: Unremarkable. IMPRESSION: No acute findings. Electronically signed by: Ramesh Hampton On 11/18/2020 21:09:47 PM
[2020-11-18] MEDS ORDERED: MOM 30ML SUSPENSION UDC PO PRN (21:10)
[2020-11-18] MEDS ORDERED: MAALOX 30 ML SUSP *UDC PO PRN (21:10)
[2020-11-18] MEDS ORDERED: ACETAMINOPHEN TAB 650MG DOSE (2X325MG) PO PRN (21:10)
[2020-11-18] MEDS ORDERED: NS 500 ML IV SCH (21:25)
--- NOTE | 2020-11-18 22:06 | HPEPDOC ---
[facility] Medical History & Physical Date of Admission Nov 18, 2020 Date of Service: Nov 18, 2020 Primary Care Physician: VERITO SARAVIA MD Attending Physician: FÁTIMA BROWN MD History and Physical CHIEF COMPLAINT: [sent by PCP / abnormal lab work] HISTORY OF PRESENT ILLNESS: [This is a 65 year old female with a pmh of COPD with chronic respiratory failure, diastolic CHF, GERD, HTN and obesity who presents to the ED today after a visit with her pcp earlier today resulted in a finding of elevated kidney function on lab work. PCP called her and told her to report to the ED immediately. This patient was recently discharged from our hospital on 11/14 after a stay for acute on chronic respiratory failure and CHF exacerbation in which she unfortunately had to be intubated. Patient was following up with her pcp today from her hospital visit. Patient states that since leaving the hospital, she had a few episodes of non-bloody diarrhea, and noticed over the past 2 days that she was urinating much less than usual. Patient believes that her diarrhea was due to eating salads for a few days in a row. Patient states that she has some discomfort urinating after her discharge, but believes this was due to catheterization. She says this is mostly resolved. Patient states that overall, she feels much better now than she did when she left the hospital and believes her breathing is much better. Patient denies chest pain, increased SOB, dark stools, abd pain, nausea, vomiting, fever, chills, fatigue.] PAST MEDICAL HISTORY: 1. [See HPI PAST SURGICAL HISTORY: 1. [Tubal ligation with D&C]. SOCIAL HISTORY: Marital status: []. Resides in: [home] Children: [son] Employment: [retired] Tobacco use:[former smoker] ETOH: [denies] Illicit drug use: [denies] FAMILY HISTORY: Multiple CVA's ALLERGIES: Please see below. REVIEW OF SYSTEMS: CONSTITUTIONAL: [See HPI]. HEENT: [Admits to mild headache]. CARDIOVASCULAR: [See HPI]. RESPIRATORY: [See HPI]. GASTROINTESTINAL: [See HPI]. GENITOURINARY: [See HPI]. SKIN: [Denies rash]. MUSCULOSKELETAL: [Denies acute back pain]. NEUROLOGICAL: [See HPI]. HEMATOLOGIC/LYMPHATIC: [Denies increased bruising]. HOME MEDICATIONS: Please see below. PHYSICAL EXAMINATION: VITAL SIGNS: See below GENERAL APPEARANCE: [This is a 65 year old white female. She is laying in bed, appears uncomfortable in her current position.]. HEENT: [No mass or lesion. EOMI. No scleral icterus or conjunctival erythema. Nares patent. Oral mucosa dry, without erythema.]. CARDIOVASCULAR: [Regular rate, rhythm. No murmurs, rubs or gallops]. LUNGS: [No wheezing, rales or rhonchi appreciated]. ABDOMEN: [Obese, non-tender]. MUSCULOSKELETAL: [No joint deformity]. EXTREMITIES: [Mild edema to b/l lower extremities. No clubbing, cyanosis. Pulses intact]. NEUROLOGICAL: [Speech clear. A+Ox3. No focal deficits. Sensation intact.]. PSYCHIATRIC: [Mood and affect appear appropriate]. LABORATORY DATA: See below. IMAGING: [Chest X-ray: FINDINGS: Lungs: Unremarkable. No consolidation. Pleural spaces: Unremarkable. No pleural effusion. No pneumothorax. Heart/Mediastinum: Unremarkable. No cardiomegaly. Bones/joints: Unremarkable. IMPRESSION: No acute findings. ] MICROBIOLOGY: Please see below. ASSESSMENT: [This is a 65 year old white female with a history of COPD and CHF who was recently discharged from the hospital after an acute exacerbation of these conditions that caused her to be intubated. Patient states that she feels her breathing is improved and has no acute complaints save for feeling as though she is peeing less. Workup in ED is notable for [place] with cr of 3.3 from 1.3 at discharge. ]. . PLAN: 1. [[place] - Patient is on 1500mL fluid restrict at home, and states that she often drinks less than this. Coupled with even a few episodes of diarrhea, patient is likely somewhat dehydrated. Patient was also receiving many diuretics during hospital stay and continued torsemide at home. Her [place] picture is likely multifactorial dehydration and possibility of nephrotoxicity. - Will hold diuretics - Will give 500mL IVF only for now to avoid fluid overload - Renal US, urine na and cr ordered - UA - Recheck renal function in the morning 2. COPD - Patient will be placed on tabletop BiPAP while in hospital - Patient's breathing acceptable in ED, sating mid to high 90's on nasal canula - continue at home albuterol, guaifenesin 3. CHF - patient's volume status appears slightly dry - will monitor 4. HTN - continue at home diltiazem - holding lisinopril for now 5. Obesity - Patient's weight unfortunately complicates care and contributes to respiratory disease 6. Hyperlipidemia - continue pravastatin 7. GERD - continue famotidine 8. DVT prophylaxis - Heparin ordered]. Vital Signs Vital Signs Date Time Temp Pulse Resp B/P (MAP) Pulse Ox O2 Delivery O2 Flow Rate FiO2 11/18/20 19:53 11/18/20 19:11 97.3 88 18 97 Nasal Cannula 4.0 Laboratory Data Labs 24H Laboratory Tests 2 11/18/20 19:42: Nucleated Red Blood Cells % (auto) 0.0, Anion Gap 8, Glomerular Filtration Rate 14.8L, Calcium Level 8.5L CBC/BMP Laboratory Tests 11/18/20 19:42 Microbiology Microbiology 11/18/20 Respiratory Virus Panel (PCR) (ANDI), Received Pending Home Medications Scheduled Diltiazem Hcl (Diltiazem 24Hr ER) 240 Mg Cap.sa.24h, 240 MG PO DAILY Docusate Sodium (Dok) 100 Mg Capsule, 100 MG PO BID Famotidine (Famotidine) 10 Mg Tablet, 10 MG PO DAILY Magnesium Oxide (Magnesium Oxide) 250 Mg Tablet, 250 MG PO DAILY Medroxyprogesterone Acetate (Medroxyprogesterone Acetate) 10 Mg Tablet, 10 MG PO DAILY Potassium Chloride (Potassium Chloride) 10 Meq Tab.er.prt, 40 MEQ PO DAILY Pravastatin Sodium (Pravastatin Sodium) 10 Mg Tablet, 10 MG PO DAILY Scheduled PRN Acetaminophen (Tylenol Arthritis) 650 Mg Tablet.er, 650 MG PO TID PRN for PAIN / FEVER Albuterol Sulfate (Proair Hfa) 8.5 Gm Hfa.aer.ad, 2 PUFF INH Q4H PRN for SHORTNESS OF BREATH Guaifenesin (Mucinex) 600 Mg Tab.er.12h, 600 MG PO BID PRN for CONGESTION Allergies Coded Allergies: latex (Verified Allergy, Intermediate, rash, 11/18/20) Penicillins (Verified Adverse Reaction, Mild, GI UPSET, 11/18/20) clavulanic acid (Verified Adverse Reaction, Mild, GI UPSET, 11/18/20) codeine (Verified Adverse Reaction, Mild, GI UPSET, 11/18/20) A-FIB/CHADSVASC A-FIB History Current/History of A-Fib/PAF?: No Attending Note Attending Note Time of service 848pm is a 65 yr old w a hx of migraines, COPD, MATTIE/OHS, HFpEF, and class 3 obesity who was recently admitted for acute hypercapnic/hypoxemic respiratory failure and untreated [place]; today she was sent by her PCP for management of [place]. Rest per VIELKA Rea's H&P ROD REA Nov 18, 2020 22:06 FÁTIMA BROWN MD Nov 19, 2020 02:59
[2020-11-18] MEDS ORDERED: PROAAER10 INH (22:10)
[2020-11-18] MEDS ORDERED: ACET500T15 PO (22:10)
[2020-11-18] MEDS ORDERED: ESSE250T PO (22:10)
[2020-11-18] MEDS ORDERED: ACET650T61 PO (22:10)
[2020-11-18] MEDS ORDERED: POTA10TA67 PO (22:10)
[2020-11-18] MEDS ORDERED: TORS5TAB2 PO (22:10)
[2020-11-18] MEDS ORDERED: PATIENT COMMENT (22:12)
[2020-11-18] MEDS: HEPARIN SOD (PORCINE) 5000UNITS/ML 1ML VIAL/SYRINGE SC SCH (22:18)
[2020-11-18] MEDS ORDERED: ALBUTEROL 90 MCG/ACT 8GM HFA INHALER INH PRN (22:20)
[2020-11-18] MEDS ORDERED: ACETAMINOPHEN 500 MG TAB PO PRN (22:20)
[2020-11-18] MEDS ORDERED: guaiFENesin ER 600 MG TAB PO PRN (22:20)
[2020-11-18 23:20] VITALS: BP 104/51
--- NOTE | 2020-11-18 23:20 | REPVR ---
PROCEDURE INFORMATION: Exam: US Retroperitoneal Limited, Kidneys Exam date and time: 11/18/2020 10:46 PM Age: 65 years old Clinical indication: Abnormal findings; Abnormal lab test; Abnormal kidney function lab tests and other: Arun TECHNIQUE: Imaging protocol: Real-time ultrasound of the retroperitoneum with image documentation. Examination was focused on the kidneys. COMPARISON: No relevant prior studies available. FINDINGS: Right kidney measures 10.0 cm in length. Left kidney measures 10.4 cm in length. Renal parenchymal echotexture and cortical thickness are normal. No solid renal mass, cyst or hydronephrosis. No shadowing, echogenic foci suggestive of stones. Bladder is not visualized. IMPRESSION: Unremarkable ultrasound of the kidneys. Bladder could not be evaluated secondary to body habitus technical factors Electronically signed by: Silvestre Richard On 11/18/2020 23:21:17 PM
[2020-11-18 23:21] VITALS: BP_SYST 104; BP_SYST 99; BP_DIAS 51; BP_DIAS 56
[2020-11-18 23:22] VITALS: BP 105/57
[2020-11-19] VITALS (9 sets, daily range): BP systolic 95–118; BP diastolic 53–62; O2SAT 94–99
[2020-11-19 05:30] LABS: HEMATOCRIT 41.2 % (36.0-47.0); HEMOGLOBIN 12.3 g/dl (12.0-15.5); MEAN CORPUSCULAR HEMOGLOBIN 24.4 pg (27.0-33.0); MEAN CORPUSCULAR HGB CONC 29.9 g/dl (32.0-36.5); MEAN CORPUSCULAR VOLUME 81.7 fl (80.0-96.0); PLATELET COUNT, AUTOMATED 294 10^3/uL (150-450); RED BLOOD COUNT 5.04 10^6/uL (4.00-5.40); WHITE BLOOD COUNT 4.7 10^3/uL (4.0-10.0)
[2020-11-19 05:59] LABS: CALCIUM LEVEL 8.9 MG/DL (8.8-10.2); CREATININE FOR GFR 2.91 MG/DL (0.55-1.30); GLOMERULAR FILTRATION RATE 17.3 (>45); MAGNESIUM LEVEL 2.3 MG/DL (1.8-2.4); POTASSIUM SERUM 3.6 MEQ/L (3.5-5.1)
[2020-11-19 07:18] LABS: HEMOGLOBIN A1c 6.5 %
[2020-11-19] MEDS ORDERED: NS 500 ML IV ONE ×2 (07:35→15:10)
--- NOTE | 2020-11-19 08:05 | ECGEPIP ---
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
[2020-11-19] MEDS: POTASSIUM CHLORIDE 10 MEQ SR TABLET PO SCH (09:51)
[2020-11-19] MEDS: PRAVASTATIN 10 MG TAB PO SCH (09:51)
[2020-11-19] MEDS: HEPARIN SOD (PORCINE) 5000UNITS/ML 1ML VIAL/SYRINGE SC SCH ×2 (09:51→20:38)
[2020-11-19] MEDS: FAMOTIDINE 20 MG TAB PO SCH (09:52)
[2020-11-19] MEDS: DOCUSATE SODIUM 100MG CAPSULE PO SCH ×2 (09:52→20:38)
[2020-11-19] MEDS: medroxyPROGESTERone 5MG TABLET PO SCH (09:52)
[2020-11-19] MEDS ORDERED: SLF 3 ML SYR IV PRN (10:00)
[2020-11-19] MEDS ORDERED: PILL CUTTER 1 EACH XX PRN (10:05)
[2020-11-19 14:01] LABS: POTASSIUM RANDOM URINE 30.5 MEQ/L
[2020-11-19] MEDS: SLF 3 ML SYR IV SCH ×2 (15:00→20:38)
[2020-11-19] MEDS: NYSTATIN 100,000 UNITS/GM TOPICAL PWD 15 GM TOP SCH ×2 (15:00→20:38)
--- NOTE | 2020-11-19 15:08 | IPNPDOC ---
Text Note Date of Service The patient was seen on 11/19/20. NOTE Subjective: No any acute events overnight. Patient denied fever, chills, dysuria Objective: GENERAL APPEARANCE: Morbidly obese female HEENT: no scleral icterus, no JVD, EOMI CARDIOVASCULAR: S1S2 LUNGS: CTA ABDOMEN: soft & not tender w palpitation MUSCULOSKELETAL: no cyanosis, no swelling INTEGUMENT: no generalized pallor NEUROLOGICAL: cranial nerve function from 2-12 intact intact, follows commands, speech not dysarthric Assessment and plan Patient is 65 years old female with past history of COPD on 3 L of oxygen, diastolic CHF presented hospital with acute kidney failure [place] Most likely secondary to combination of fluid restriction due to recent acute CHF, torsemide and 2 days of diarrhea Patient stated that during today's she developed multiple episodes of diarrhea Gentle IV fluid Diuretics on hold Continue to monitor COPD Restrictive pattern secondary to obesity hyperventilation syndrome and obstructive sleep apnea Not in acute exacerbation Continue inhalers Tabletop BiPAP daily at bedtime Diastolic CHF Not in acute exacerbation Will check BNP Cardiac diet I's and O's Morbid obesity Complicated care BMI 69.8 Patient will benefit from bariatric surgery Hyperlipidemia Continue statin GERD Continue vomiting VS,Fishbone, I+O VS, Fishbone, I+O Laboratory Tests 11/18/20 19:42 11/19/20 04:48 Vital Signs Date Time Temp Pulse Resp B/P (MAP) Pulse Ox O2 Delivery O2 Flow Rate FiO2 11/19/20 12:00 97.1 90 22 97 Nasal Cannula 5.0 11/19/20 10:00 118/62 (80) I&O- Last 24 Hours up to 6 AM 11/19/20 06:00 Intake Total 950 ml Balance 950 ml AD CABRERA DO Nov 19, 2020 15:08
[2020-11-19 15:33] LABS: CALCIUM LEVEL 8.8 MG/DL (8.8-10.2); CREATININE FOR GFR 2.38 MG/DL (0.55-1.30); GLOMERULAR FILTRATION RATE 21.8 (>45); POTASSIUM SERUM 4.1 MEQ/L (3.5-5.1)
[2020-11-19 20:21] LABS: CALCIUM LEVEL 8.8 MG/DL (8.8-10.2); CREATININE FOR GFR 2.16 MG/DL (0.55-1.30); GLOMERULAR FILTRATION RATE 24.4 (>45); POTASSIUM SERUM 4.2 MEQ/L (3.5-5.1)
[2020-11-20] VITALS (13 sets, daily range): BP systolic 104–107; BP diastolic 51–55; O2SAT 85–98
[2020-11-20 02:48] LABS: CALCIUM LEVEL 8.8 MG/DL (8.8-10.2); CREATININE FOR GFR 1.73 MG/DL (0.55-1.30); GLOMERULAR FILTRATION RATE 31.6 (>45); POTASSIUM SERUM 3.6 MEQ/L (3.5-5.1)
[2020-11-20 05:42] LABS: HEMATOCRIT 44.2 % (36.0-47.0); MEAN CORPUSCULAR HEMOGLOBIN 24.5 pg (27.0-33.0); MEAN CORPUSCULAR HGB CONC 29.4 g/dl (32.0-36.5); MEAN CORPUSCULAR VOLUME 83.2 fl (80.0-96.0); PLATELET COUNT, AUTOMATED 280 10^3/uL (150-450); RED BLOOD COUNT 5.31 10^6/uL (4.00-5.40); WHITE BLOOD COUNT 4.4 10^3/uL (4.0-10.0)
[2020-11-20] MEDS: SLF 3 ML SYR IV SCH (05:43)
[2020-11-20 06:10] LABS: CALCIUM LEVEL 9.2 MG/DL (8.8-10.2); CREATININE FOR GFR 1.65 MG/DL (0.55-1.30); GLOMERULAR FILTRATION RATE 33.3 (>45); MAGNESIUM LEVEL 2.1 MG/DL (1.8-2.4); POTASSIUM SERUM 3.8 MEQ/L (3.5-5.1)
[2020-11-20] MEDS: DOCUSATE SODIUM 100MG CAPSULE PO SCH (08:17)
[2020-11-20] MEDS: POTASSIUM CHLORIDE 10 MEQ SR TABLET PO SCH (08:29)
[2020-11-20] MEDS: PRAVASTATIN 10 MG TAB PO SCH (08:29)
[2020-11-20] MEDS: medroxyPROGESTERone 5MG TABLET PO SCH (08:30)
[2020-11-20] MEDS: HEPARIN SOD (PORCINE) 5000UNITS/ML 1ML VIAL/SYRINGE SC SCH (08:30)
[2020-11-20] MEDS: FAMOTIDINE 20 MG TAB PO SCH (08:30)
[2020-11-20] MEDS: NYSTATIN 100,000 UNITS/GM TOPICAL PWD 15 GM TOP SCH (09:00)
[2020-11-20 09:25] LABS: CREATININE FOR GFR 1.54 MG/DL (0.55-1.30); GLOMERULAR FILTRATION RATE 36.1 (>45); POTASSIUM SERUM 3.7 MEQ/L (3.5-5.1)
[2020-11-20] MEDS ORDERED: DOK1CAP7 PO (10:10)
--- NOTE | 2020-11-20 18:17 | DS.PDOC ---
Discharge Summary General Date of Admission Nov 18, 2020 at 19:11 Date of Discharge 11/20/20 Discharge Summary PROCEDURES PERFORMED DURING STAY: [None]. ADMITTING DIAGNOSES: [place] COPD Diastolic CHF Morbid obesity Hyperlipidemia GERD DISCHARGE DIAGNOSES: [place] COPD Diastolic CHF Morbid obesity Hyperlipidemia GERD COMPLICATIONS/CHIEF COMPLAINT: Acute Renal Failure. HISTORY OF PRESENT ILLNESS: This is a 65 year old female with a pmh of COPD with chronic respiratory failure, diastolic CHF, GERD, HTN and obesity who presents to the ED today after a visit with her pcp earlier today resulted in a finding of elevated kidney function on lab work. PCP called her and told her to report to the ED immediately. This patient was recently discharged from our hospital on 11/14 after a stay for acute on chronic respiratory failure and CHF exacerbation in which she unfortunately had to be intubated. Patient was following up with her pcp today from her hospital visit. Patient states that since leaving the hospital, she had a few episodes of non-bloody diarrhea, and noticed over the past 2 days that she was urinating much less than usual. Patient believes that her diarrhea was due to eating salads for a few days in a row. Patient states that she has some discomfort urinating after her discharge, but believes this was due to catheterization. She says this is mostly resolved. Patient states that overall, she feels much better now than she did when she left the hospital and believes her breathing is much better. Patient denies chest pain, increased SOB, dark stools, abd pain, nausea, vomiting, fever, chills, fatigue.] HOSPITAL COURSE: During the hospital stay following issues addressed [place] Most likely secondary to combination of fluid restriction due to recent acute CHF, torsemide and 2 days of diarrhea Patient stated that during 2 she developed multiple episodes of diarrhea Patient received IV fluid resuscitation, kidney function improved COPD Restrictive pattern secondary to obesity hyperventilation syndrome and obstructive sleep apnea Not in acute exacerbation Continue inhalers Tabletop BiPAP daily at bedtime Diastolic CHF Not in acute exacerbation Cardiac diet I's and O's Morbid obesity Complicated care BMI 69.8 Patient will benefit from bariatric surgery Hyperlipidemia Continue statin GERD Continue vomiting DISCHARGE MEDICATIONS: Please see below. ALLERGIES: Please see below. PHYSICAL EXAMINATION ON DISCHARGE: VITAL SIGNS: Please see below. GENERAL APPEARANCE: Morbidly obese female HEENT: no scleral icterus, no JVD, EOMI CARDIOVASCULAR: S1S2 LUNGS: CTA ABDOMEN: soft & not tender w palpitation MUSCULOSKELETAL: no cyanosis, no swelling INTEGUMENT: no generalized pallor NEUROLOGICAL: cranial nerve function from 2-12 intact intact, follows commands, speech not dysarthric LABORATORY DATA: Please see below. IMAGING: See above PROGNOSIS: Fair ACTIVITY: [As tolerated]. DIET: Cardiac DISPOSITION: 01 Home, Self-Care. DISCHARGE INSTRUCTIONS: Discuss restart of torsemide with PCP ITEMS TO FOLLOWUP ON ON OUTPATIENT: With PCP in 3-5 days and chain dyer in 1 week DISCHARGE CONDITION: [Stable]. TIME SPENT ON DISCHARGE:40minutes. Vital Signs/I&Os Vital Signs Date Time Temp Pulse Resp B/P (MAP) Pulse Ox O2 Delivery O2 Flow Rate FiO2 11/20/20 10:00 96 Nasal Cannula 4.0 11/20/20 08:29 95 104/55 11/20/20 07:17 97.0 22 I&O- Last 24 Hours up to 6 AM 11/20/20 06:00 Intake Total 2610 ml Output Total 1925 ml Balance 685 ml Laboratory Data Labs 24H Laboratory Tests 2 11/19/20 19:39: Anion Gap 7L, Glomerular Filtration Rate 24.4L, Calcium Level 8.8 11/20/20 01:47: Anion Gap 7L, Glomerular Filtration Rate 31.6L, Calcium Level 8.8 11/20/20 05:20: Anion Gap 4L, Glomerular Filtration Rate 33.3L, Calcium Level 9.2, Nucleated Red Blood Cells % (auto) 0.0, Magnesium Level 2.1 11/20/20 08:33: Anion Gap 6L, Glomerular Filtration Rate 36.1L, Calcium Level 9.0 CBC/BMP Laboratory Tests 11/19/20 19:39 11/20/20 01:47 11/20/20 05:20 11/20/20 08:33 Microbiology Microbiology 11/18/20 Respiratory Virus Panel (PCR) (ANDI) - Final, Complete Discharge Medications Scheduled Diltiazem Hcl (Diltiazem 24Hr ER) 240 Mg Cap.sa.24h, 240 MG PO DAILY, (Reported) Docusate Sodium (Dok) 100 Mg Capsule, 100 MG PO BID Famotidine (Famotidine) 10 Mg Tablet, 10 MG PO DAILY, (Reported) Magnesium Oxide (Magnesium Oxide) 250 Mg Tablet, 250 MG PO DAILY, (Reported) Medroxyprogesterone Acetate (Medroxyprogesterone Acetate) 10 Mg Tablet, 10 MG PO DAILY, (Reported) Potassium Chloride (Potassium Chloride) 10 Meq Tab.er.prt, 40 MEQ PO DAILY, (Reported) Pravastatin Sodium (Pravastatin Sodium) 10 Mg Tablet, 10 MG PO DAILY, (Reported) Scheduled PRN Acetaminophen (Tylenol Arthritis) 650 Mg Tablet.er, 650 MG PO TID PRN for PAIN / FEVER, (Reported) Albuterol Sulfate (Proair Hfa) 8.5 Gm Hfa.aer.ad, 2 PUFF INH Q4H PRN for SHORTNESS OF BREATH, (Reported) Guaifenesin (Mucinex) 600 Mg Tab.er.12h, 600 MG PO BID PRN for CONGESTION, (Reported) Allergies Coded Allergies: latex (Verified Allergy, Intermediate, rash, 11/18/20) Penicillins (Verified Adverse Reaction, Mild, GI UPSET, 11/18/20) clavulanic acid (Verified Adverse Reaction, Mild, GI UPSET, 11/18/20) codeine (Verified Adverse Reaction, Mild, GI UPSET, 11/18/20) AD CABRERA DO Nov 20, 2020 18:17
== END 2020-11-20 14:17 | disposition home or self-care (01) | DRG 683 ==
LOC: M ED 19:10 → M ED INP 19:11 → ENRESERV 22:23 → OBSVTOIN 23:00 → INTOOBSV 23:00 → M PCU 23:14
PROVIDERS: ADMIT Internal Medicine; ATTEND Internal Medicine
DX: N17.9 Acute kidney failure, unspecified (principal); J96.10 Chronic respiratory failure, unspecified whether with hypoxia or hypercapnia; E66.2 Morbid (severe) obesity with alveolar hypoventilation; I50.32 Chronic diastolic (congestive) heart failure; Z68.44 Body mass index [BMI] 60.0-69.9, adult; I11.0 Hypertensive heart disease with heart failure; J44.9 Chronic obstructive pulmonary disease, unspecified; K21.9 Gastro-esophageal reflux disease without esophagitis; E78.5 Hyperlipidemia, unspecified; G47.33 Obstructive sleep apnea (adult) (pediatric); Z79.899 Other long term (current) drug therapy; Z91.040 Latex allergy status; Z88.0 Allergy status to penicillin; Z88.8 Allergy status to other drugs, medicaments and biological substances; Z88.5 Allergy status to narcotic agent

== ENCOUNTER → 2021-06-12 | Outpatient (REF) | payer OTHER ==
[~2021-06-12] MED LIST changes: +ACET500T15 PO; +ACET650T61 PO; +DOK1CAP4 PO; +ESSE250T PO; +FAMO10TA50 PO; -FAMO1TAB25 PO; -KLOR10TA76 PO; +PATIENT COMMENT; +POTA-136 PO; +POTA10TA67 PO
[2021-06-12 17:45] LABS: TOTAL PROTEIN 7.6 GM/DL (6.4-8.2)
[2021-06-15 11:09] LABS: ALBUMIN 4.09 GM/DL (3.29-5.55); ALBUMIN % 53.8 % (55.8-66.1); ALPHA-1-GLOBULIN % 5.1 % (2.9-4.9); ALPHA-1-GLOBULINS 0.39 GM/DL (0.17-0.41); ALPHA-2-GLOBULINS % 14.5 % (7.1-11.8); BETA-1-GLOBULINS 0.49 GM/DL (0.28-0.60); BETA-1-GLOBULINS % 6.4 % (4.7-7.2); BETA-2-GLOBULINS 0.47 GM/DL (0.19-0.55); BETA-2-GLOBULINS % 6.2 % (3.2-6.5); GAMMA GLOBULINS 1.06 GM/DL (0.65-1.58)
== END ==
LOC: M LAB REF 16:27
PROVIDERS: ATTEND Nurse Practitioner Adult Health
DX: R80.9 Proteinuria, unspecified (principal)

== ENCOUNTER → 2021-06-12 | Outpatient (REF) | payer OTHER | LOC: M LAB REF 16:27 | PROVIDERS: ATTEND Nurse Practitioner Adult Health | DX: R80.9 Proteinuria, unspecified (principal) ==

== ENCOUNTER → 2021-10-28 | Outpatient (REF) | payer MEDICARE, OTHER ==
[~2021-10-28] MED LIST changes: +ATRO0.063 INH; +COLC0.6T47 PO; +FAMO20TA5 PO; +KETO2CR TOP; +MAGN250T11 PO; +TARTCAP PO
[2021-10-28 17:03] LABS: PHOSPHORUS LEVEL 3.4 MG/DL (2.5-4.9)
[2021-10-28 17:14] LABS: PTH INTACT 228.7 PG/ML (18.5-88.0)
== END ==
LOC: M LAB REF 16:04
PROVIDERS: ATTEND Nurse Practitioner Adult Health
DX: N17.9 Acute kidney failure, unspecified (principal)

== ENCOUNTER → 2023-01-19 | Outpatient (CLI) | payer MEDICARE, OTHER ==
[~2023-01-19] MED LIST changes: +BENZ1LOZ2 PO; -DILT1CAP5 PO; +DILT240C41 PO; -MEDR10TA PO; +MEDR10TA9 PO; -SORE15LO PO
== END ==
LOC: M WHC 14:10
PROVIDERS: ATTEND Specialist
DX: Z12.31 Encounter for screening mammogram for malignant neoplasm of breast (principal); R92.8 Other abnormal and inconclusive findings on diagnostic imaging of breast

== ENCOUNTER → 2023-01-19 | Outpatient (REF) | payer MEDICARE, OTHER | LOC: M SFHCWAGY 17:15 | PROVIDERS: ATTEND Specialist | DX: Z12.4 Encounter for screening for malignant neoplasm of cervix (principal) | CPT/HCPCS: 87624; G0123 ==

== ENCOUNTER → 2023-03-07 | Outpatient (CLI) | payer MEDICARE, OTHER | LOC: M WHC 12:58 | PROVIDERS: ATTEND Specialist | DX: Z12.31 Encounter for screening mammogram for malignant neoplasm of breast (principal) | CPT/HCPCS: 77065; G0279 ==